=== PATIENT | male | born 1995 | race Caucasian/White ===

== ENCOUNTER 2017-08-15 03:02 | Inpatient (IN) | payer BC, SELFPAY ==
[2017-08-15] VITALS (31 sets, daily range): BP systolic 107–170; BP diastolic 41–88; PULSE 59–98; RESP 13–24; TEMP 36.4–37.1; O2SAT 95–100; BMI 35.7; BMI 35.0; BMI 35.1
--- NOTE | 2017-08-15 03:35 | EKG12_ITS ---
Test Reason : ABN LAB Blood Pressure : / mmHG Vent. Rate : 083 BPM Atrial Rate : 083 BPM P-R Int : 160 ms QRS Dur : 094 ms QT Int : 522 ms P-R-T Axes : 029 049 020 degrees QTc Int : 613 ms Normal sinus rhythm Nonspecific T wave abnormality Abnormal ECG Confirmed by TRUDI RYDER ([id number]), commercial production editor ELLIOTT HOGUE ([id number] on 08/17/2017 2:35:48 PM Referred By: NANCY Confirmed By:TRUDI RYDER
--- NOTE | 2017-08-15 03:36 | ED.VISSUMM ---
- ER Visit Summary Date of Service: 08/15/17 Chief Complaint: Low potassium History of Present Illness: The patient is a 21 M with history of hypokalemic periodic paralysis who presents complaining of low potassium. Patient states since yesterday morning he has been having symptoms develop, beginning with leg stiffness upon waking and then worsening development of weakness during the day. He fell asleep and when he woke up he could hardly move. He came to the emergency department for evaluation. He states this is happened multiple times and is consistent with his periodic paralysis episodes. He denies chest pain, palpitations, shortness of breath, abdominal pain, nausea or vomiting, fever or any other complaints. He is on as needed potassium supplements but has not been taking them for a long time. He denies any alcohol or drug use. Denies any other medical problems. Family history of hypokalemic periodic paralysis. Physical Examination: Vital signs: afebrile, hemodynamically stable, no hypoxia on room air General: well nourished, well developed, in no distress Skin: warm, dry, no rash, no pallor HEENT: normocephalic and atraumatic; PERRL, EOMI, moist mucous membranes Cardiovascular: regular rate and rhythm without murmurs, no peripheral edema, 2+ pulses all distal extremities Respiratory: No increased work of breathing, lungs are clear to auscultation bilaterally, no rales, rhonchi or wheezing Abdominal: Abdomen is soft, nontender with normoactive bowel sounds, no guarding or rebound, no masses MSK: Diffuse weakness in all extremities, 1/5 strength Neuro: Awake and alert, oriented ?4. No facial droop, sensation and intact and symmetric Test Results: Abnormal Lab Results 08/15/17 08/15/17 03:14 03:14 WBC 9.8 RBC 4.98 Hgb 15.1 Hct 41.6 MCV 83.5 MCH 30.3 MCHC 36.3 H RDW 12.1 RDW Differential 36.1 Plt Count 223 MPV 10.0 Immature Gran % (Auto) 0.200 Neut % (Auto) 65.7 Lymph % (Auto) 21.6 [place] % (Auto) 8.9 Eos % (Auto) 3.5 Baso % (Auto) 0.1 Absolute Neuts (auto) 6.4 Absolute Lymphs (auto) 2.11 Total Counted Not Reportable Sodium 140 Potassium 1.7 L* Chloride 104 Carbon Dioxide 28.0 Anion Gap 8 BUN 14 Creatinine 1.09 Estim Creat Clear Calc 119.64 Est GFR (MDRD) Af Amer 111 Est GFR (MDRD) Non-Af 92 BUN/Creatinine Ratio 12.8 Glucose 106 Calcium 8.4 L Phosphorus 3.5 Magnesium 1.8 Emergency Department Course and Treatment: CBC and BMP including mag and phosphorus levels were performed. EKG showed a sinus rhythm with diffuse T-wave flattening, U wave present, and a prolonged QTc interval of 613. No ST changes. Patient's labs were remarkable for potassium of 1.7. Patient was given an oral dose of potassium, and 10 mEq/h IV was ordered. Patient will require close monitoring of his potassium levels, including for rebound hyperkalemia, as his treatment progresses. Patient was kept on the monitoring and evaluation advisor for monitoring of possible dysrhythmias. Patient will be admitted to ICU for further management of his severe hypokalemia and muscle weakness, presumed secondary to his known hypokalemic periodic paralysis. Treatment Plan: [] Disposition: [] Impression: Severe hypokalemia, hypokalemic periodic paralysis This note was generated with [employer] dictation software. It may contain incorrect words, spelling, and punctuation that were not noted in review of the chart prior to signing ED Disposition - Plan for ED Patient: Chief Complaint: Abn Labs
[2017-08-15 03:54] LABS: Absolute Lymphocyte Count 2.11 X10^3/ul (0.83-4.51); Absolute Neutrophil Count 6.4 X10^3/uL (2.0-7.7); Basophil# 0.01 X10^3/uL; Basophil% 0.1 % (0-1); Eosinophil# 0.34 X10^3/uL; Eosinophils% 3.5 % (0-5); Hematocrit 41.6 % (40-54); Hemoglobin 15.1 g/dl (13.0-16.5); Lymphocyte # 2.11 X10^3/ul (4.0); Lymphocyte % 21.6 % (19-41); Mean Corp Hgb Conc 36.3 g/gl (32-36); Mean Corpuscular Hgb 30.3 pg (27.0-32.0); Mean Corpuscular Volume 83.5 fL (80-94); Monocyte# 0.87 X10^3/uL; Monocyte% 8.9 % (0-10); Neutrophil # 6.43 X10^3/uL (2.7-7.7); Neutrophil % 65.7 % (47-70); Platelet Count 223 K/mm3 (150-450); RBC Distribution Width CV 12.1 % (11.6-14.6); RBC Distribution Width SD 36.1 fl (35.1-43.9); Red Blood Count 4.98 M/mm3 (4.6-6.2); White Blood Count 9.8 K/mm3 (4.4-11.0)
[2017-08-15 03:57] LABS: POSITIVE COUNT NO; POSITIVE DIFFERENTIAL NO; POSITIVE MORPHOLOGY NO
[2017-08-15 05:02] LABS: Anion Gap 8 (5-15); BUN 14 mg/dL (7-18); BUN/Creat Ratio 12.8 RATIO (10-20); Calcium,Total 8.4 mg/dL (8.5-10.1); Chloride 104 mmol/L (98-107); Creatinine, Serum 1.09 mg/dL (0.70-1.30); EST Glomerular Filtration Rate 92 mL/min (>60); Est Glom Filt Rate - Afr Amer 111 mL/min (>60); Estimated Creatinine Clearance 119.64 ml/min; Glucose 106 mg/dL (74-106); Magnesium 1.8 mg/dL (1.6-2.6); Phosphorus 3.5 mg/dL (2.5-4.9); Potassium 1.7 mmol/L (3.5-5.1); Sodium Level 140 mmol/L (136-145)
--- NOTE | 2017-08-15 05:02 | ED.RN ---
LAB CALLED TO REPORT K+ 1.7, MADE AWARE.
--- NOTE | 2017-08-15 06:05 | PCM.HP.STD ---
Problem List (1) Hypokalemic periodic paralysis Status: Acute History of Present Illness Date of Admission: 08/15/17 Chief Complaint: leg stiffness difficulty moving The patient is a 21 year old male patient with a significant past medical history of hypokalemic periodic paralysis presents to the ER with inability to move normally. He states he noticed feeling his legs getting stiff yesterday morning and this has progressed through now. It has been a year since his last potassium attack. He has not been taking his potassium supplements. No fevers or chills, no chest apin or shortness of breath. He received 40meq KCl PO and IV in the ER. He will be admitted to ICU while he has symptoms of movement disorder. His potassium level is currently 1.7. Past Medical History Allergies No Known Allergies Allergy (Verified 08/15/17 03:08) Home Medications: Ambulatory Orders Medication Instructions Recorded Potassium Chloride [K-Dur] 10 meq PO PRN PRN 03/09/15 Smoking Status: Never smoker - *Family History Maternal History Items: No pertinent history Review of Systems Constitutional: Reports: Malaise, Weakness, Fatigue. Denies: Chills, Fever, Weight Change HEENT: Denies: Head Aches, Sinus Congestion, Sinus Drainage Cardiovascular: Denies: Chest Pain, Palpitations Respiratory: Denies: Cough, Shortness of breath at rest, Sputum production Gastrointestinal: Denies: Abdominal Pain, Nausea, Vomiting Genitourinary: Denies: Dysuria Musculoskeletal: Denies: Joint Pain, Joint Tenderness Skin: Denies: Rash, Wounds Neurological: Reports: Incoordination, Numbness. Denies: Focal weakness, Tingling Psychiatric: Denies: Anxiety, Depression, Homicidal Ideations, Suicidal Ideations Hematologic/ Lymphatic: Denies: Easy Bruising, Easy Bleeding VTE Information - Inpt Only VTE Present on Admission: No VTE Mechan Device Prophylaxis: None VTE Pharm Prophylaxis ordered?: Yes Patient Problems: Active and Suspected Problems Hypokalemic periodic paralysis (Acute) - Physical Exam General: Alert, Oriented x3, Cooperative HEENT: Atraumatic, Normocephalic Neck: Supple Lungs: Clear to auscultation, Normal air movement, No rhonchi, No wheeze, No rales Cardiovascular: Regular rate, Regular Rhythm, Normal S1, Normal S2, No murmurs Abdomen: Bowel Sounds Present, Soft, Non Tender, Obese Extremities: No edema Skin: No rashes Musculoskeletal: No Tenderness to Palpation of Joints or Extremities Neurological: Neuro grossly intact, - - having some muscle spasms and decrease dexterity and fine motor movement of all distal extremities strength currently 3/5 in all four extremities he can lift his head up off the pillow Psych/Mental Status: Normal Affect, Appropriate Vital Signs Temp Pulse Resp BP Pulse Ox 98.7 F 98 20 H 142/64 H 96 08/15/17 03:10 08/15/17 05:55 08/15/17 05:55 08/15/17 05:55 08/15/17 05:55 Oxygen Delivery Method Room Air Weight: 263 lb 7.238 oz Body Mass Index (BMI) 35.7 Laboratory Tests Past 24 Hrs 08/15/17 08/15/17 08/15/17 03:14 03:14 03:14 WBC 9.8 RBC 4.98 Hgb 15.1 Hct 41.6 MCV 83.5 MCH 30.3 MCHC 36.3 H RDW 12.1 RDW Differential 36.1 Plt Count 223 MPV 10.0 Immature Gran % (Auto) 0.200 Neut % (Auto) 65.7 Lymph % (Auto) 21.6 [place] % (Auto) 8.9 Eos % (Auto) 3.5 Baso % (Auto) 0.1 Absolute Neuts (auto) 6.4 Absolute Lymphs (auto) 2.11 Total Counted Not Reportable Sodium 140 Potassium 1.7 L* Chloride 104 Carbon Dioxide 28.0 Anion Gap 8 BUN 14 Creatinine 1.09 Estim Creat Clear Calc 119.64 Est GFR (MDRD) Af Amer 111 Est GFR (MDRD) Non-Af 92 BUN/Creatinine Ratio 12.8 Glucose 106 Calcium 8.4 L Phosphorus 3.5 Magnesium 1.8 TSH Pending Assessment/Plan Active and Suspected Problems Hypokalemic periodic paralysis (Acute) Plan - admit to ICU - consult Dr. Garcia for ICU management - start pt on d51/2 normal saline with 20meq KCl at 125 cc/ hour and order another 40meq KCL via IV piggyback - repeat BMP once the second IV 40meq KCL is infused - neurovascular assessments q 4hrs - LMWH for DVT prophylaxis Code Visit Inpatient E&M: 07440 Init Hosp L3
[2017-08-15 06:15] LABS: Thyroid Stim Hormone (TSH) 3.56 uIU/mL (0.358-3.74)
--- NOTE | 2017-08-15 08:13 | PCM.PN.HOSP ---
Patient Problems: Active and Suspected Problems Hypokalemic periodic paralysis (Acute) Subjective: Still weak. Has not seen a doctor in over a year and stated that he is potassium by 2 weeks ago. Patient states that he will take his potassium once or twice per week when he knows that he would get weak. Has not had any lab work in over a year as well. Vitals/I&O's: Vital Signs Temp Pulse Resp BP Pulse Ox 36.9 C 71 24 H 136/70 H 100 08/15/17 07:00 08/15/17 07:59 08/15/17 07:00 08/15/17 07:00 08/15/17 07:00 Oxygen Delivery Method Room Air Weight: 117.4 kg Body Mass Index (BMI) 35.0 General: Alert, Cooperative, No apparent distress HEENT: Atraumatic, Normocephalic Cardiovascular: Regular rate, Regular Rhythm, Normal S1, Normal S2, No murmurs Abdomen: Bowel Sounds Present, Soft, Non Tender, Non-Distended, No Hepato-splenomegaly Extremities: No edema, No Calf Tenderness Psych/Mental Status: Normal Affect, Appropriate Laboratory Results 08/15/17 07:00: MRSA (PCR) Pending Current Medications Enoxaparin Sodium (Lovenox) 40 mg SC DAILY@1000 SHANITA Potassium Chloride 40 meq/ (Sodium Chloride) 520 mls @ 130 mls/hr IV .Q4H SHANITA Stop: 08/15/17 09:14 Last Admin: 08/15/17 05:37 Dose: 130 mls/hr Sodium Chloride () 250 mls @ 15 mls/hr IV .[id number] PRN PRN Reason: SALINE FLUSH Magnesium Hydroxide (Milk Of Magnesia) 30 ml PO DAILY PRN PRN PRN Reason: Constipation Potassium Chloride (K-Dur) 40 meq PO DAILYCM SHANITA Sodium Chloride () 5 - 30 ml IV UD PRN PRN Reason: SALINE FLUSH Medical Necessity - Tobacco Use Smoking Status: Never smoker Assessment/Plan Active and Suspected Problems Hypokalemic periodic paralysis (Acute) 1. Hypokalemia: History of hypokalemic periodic paralysis Patient's potassium was 1.7 Continue with potassium replacement Patient has been rather lax in regards to follow with primary care doctors and having lab work. Patient's symptoms are similar to when he has had weakness due to profound hypokalemia in the past which was about a year ago. TSH was normal at 3.56 Reevaluate patient's potassium level is potassium infusion and patient's response. Patient is feeling better than likely can be discharged home. Patient will need to demonstrate more appropriate follow-up in regards to helping prevent recurrent attacks. May consider initiation of acetazolamide 150 twice daily or Spironolactone 100 mg daily. Code Visit Procedures: Other Procedure - See Report - non billable rounding.
--- NOTE | 2017-08-15 08:20 | PN_ITS ---
Patient Problems: Active and Suspected Problems Hypokalemic periodic paralysis (Acute) Subjective: Still weak. Has not seen a doctor in over a year and stated that he is potassium by 2 weeks ago. Patient states that he will take his potassium once or twice per week when he knows that he would get weak. Has not had any lab work in over a year as well. Vitals/I&O's: Vital Signs Temp Pulse Resp BP Pulse Ox 36.9 C 71 24 H 136/70 H 100 08/15/17 07:00 08/15/17 07:59 08/15/17 07:00 08/15/17 07:00 08/15/17 07:00 Oxygen Delivery Method Room Air Weight: 117.4 kg Body Mass Index (BMI) 35.0 General: Alert, Cooperative, No apparent distress HEENT: Atraumatic, Normocephalic Cardiovascular: Regular rate, Regular Rhythm, Normal S1, Normal S2, No murmurs Abdomen: Bowel Sounds Present, Soft, Non Tender, Non-Distended, No Hepato- splenomegaly Extremities: No edema, No Calf Tenderness Psych/Mental Status: Normal Affect, Appropriate Laboratory Results 08/15/17 07:00: MRSA (PCR) Pending Current Medications Enoxaparin Sodium (Lovenox) 40 mg SC DAILY@1000 SHANITA Potassium Chloride 40 meq/ (Sodium Chloride) 520 mls @ 130 mls/hr IV .Q4H SHANITA Stop: 08/15/17 09:14 Last Admin: 08/15/17 05:37 Dose: 130 mls/hr Sodium Chloride () 250 mls @ 15 mls/hr IV .[id number] PRN PRN Reason: SALINE FLUSH Magnesium Hydroxide (Milk Of Magnesia) 30 ml PO DAILY PRN PRN PRN Reason: Constipation Potassium Chloride (K-Dur) 40 meq PO DAILYCM SHANITA Sodium Chloride () 5 - 30 ml IV UD PRN PRN Reason: SALINE FLUSH Medical Necessity - Tobacco Use Smoking Status: Never smoker Assessment/Plan Active and Suspected Problems Hypokalemic periodic paralysis (Acute) 1. Hypokalemia: * History of hypokalemic periodic paralysis * Patient's potassium was 1.7 * Continue with potassium replacement * Patient has been rather lax in regards to follow with primary care doctors and having lab work. * Patient's symptoms are similar to when he has had weakness due to profound hypokalemia in the past which was about a year ago. * TSH was normal at 3.56 * Reevaluate patient's potassium level is potassium infusion and patient's response. Patient is feeling better than likely can be discharged home. * Patient will need to demonstrate more appropriate follow-up in regards to helping prevent recurrent attacks. * May consider initiation of acetazolamide 150 twice daily or Spironolactone 100 mg daily. Code Visit Procedures: Other Procedure - See Report - non billable rounding.
--- NOTE | 2017-08-15 08:27 | PCM.CON.CC ---
Problem List (1) Hypokalemic periodic paralysis Status: Acute Reason for Consult Date of Consultation: 08/15/17 Reason for Consultation: Hypokalemia History of Present Illness: The patient is a 21 year old M, with past medical history listed below, who presented to [facility] 2 day history of progressive weakness. Patient reportedly had noted some stiffness in his legs yesterday morning and then woke this morning with significant weakness. Patient does report multiple previous similar type of events and states that his brother and father also have similar events. Patient is reportedly supposed to be on potassium supplementation, but has not been using them. Patient does report that he had pizza couple days ago, which may have started this. Patient states that he deals with muscle weakness and soreness on a daily basis. Patient does not typically follow with any physicians. Patient does not take any medications at baseline, but is supposed to be taking potassium supplementation. Patient denies any recent URI, fever, chills, nausea, vomiting, dysphagia or aspiration events. Patient denies any trauma associated with the weakness. Patient denies any dysuria. Review of systems otherwise negative ?10 systems. Past Medical History Allergies No Known Allergies Allergy (Verified 08/15/17 03:08) Home Medications: Ambulatory Orders Medication Instructions Recorded Potassium Chloride [K-Dur] 10 meq PO PRN PRN 03/09/15 Smoking Status: Never smoker - *Family History Maternal History Items: No pertinent history Review of Systems Comment: See HPI Patient Problems: Active and Suspected Problems Hypokalemic periodic paralysis (Acute) Objective: No imaging has been completed. - Physical Exam General: Alert, Oriented x3, Cooperative, No apparent distress, - - Speaking in full sentences. HEENT: Atraumatic, PERRLA, EOMI, Normocephalic, - - No facial droop appreciated. No scleral icterus or injection noted. Oral: Moist Mucosa, No Gingival or Mucosal Lesions/ Ulcerations Neck: Supple, No JVD, No Nodes, Trachea Midline Lungs: Clear to auscultation, No rhonchi, No wheeze, No rales Cardiovascular: Regular rate, Regular Rhythm, Normal S1, Normal S2, No murmurs, No rub noted, No Gallop Abdomen: Bowel Sounds Present, Soft, Non Tender, Non-Distended Extremities: No clubbing, No cyanosis, No edema, Capillary Refill Less than 3 Seconds Skin: No rashes, No breakdown Musculoskeletal: No Tenderness to Palpation of Joints or Extremities Lymphatic: No Cervical, Supraclavicular, or Inguinal Adenopathy Neurological: Cranial nerves II-XII grossly intact, - - Significant proximal muscle weakness. Right upper extremity strength 2 out of 5 at the elbow. 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 0 out of 5 lower extremity strength. Sensation intact. Psych/Mental Status: Alert and oriented to time, place, person, mood and affect Vital Signs Temp Pulse Resp BP Pulse Ox 36.9 C 71 24 H 136/70 H 100 08/15/17 07:00 08/15/17 07:59 08/15/17 07:00 08/15/17 07:00 08/15/17 07:00 Oxygen Delivery Method Room Air Weight: 117.4 kg Body Mass Index (BMI) 35.0 Laboratory Tests Past 24 Hrs 08/15/17 07:00 MRSA (PCR) Pending Laboratory Tests 08/15/17 08/15/17 08/15/17 03:14 03:14 03:14 WBC 9.8 RBC 4.98 Hgb 15.1 Hct 41.6 MCV 83.5 MCH 30.3 MCHC 36.3 H RDW 12.1 RDW Differential 36.1 Plt Count 223 MPV 10.0 Immature Gran % (Auto) 0.200 Neut % (Auto) 65.7 Lymph % (Auto) 21.6 [place] % (Auto) 8.9 Eos % (Auto) 3.5 Baso % (Auto) 0.1 Absolute Neuts (auto) 6.4 Absolute Lymphs (auto) 2.11 Total Counted Not Reportable Sodium 140 Potassium 1.7 L* Chloride 104 Carbon Dioxide 28.0 Anion Gap 8 BUN 14 Creatinine 1.09 Estim Creat Clear Calc 119.64 Est GFR (MDRD) Af Amer 111 Est GFR (MDRD) Non-Af 92 BUN/Creatinine Ratio 12.8 Glucose 106 Calcium 8.4 L Phosphorus 3.5 Magnesium 1.8 TSH 3.56 Assessment/Plan Active and Suspected Problems Hypokalemic periodic paralysis (Acute) RECOMMENDATIONS: 1. Aggressive potassium repletion 2. Continuous cardiac monitoring 3. Okay to eat with assistance 4. Repeat potassium level after K riders 5. Consider PT/OT eval IMPRESSIONS: 1. Hypokalemic periodic paralysis Clinical impression is that patient typically has marginal control at baseline. Patient does not follow with an outpatient physician and is noncompliant with supplemental potassium. We will continue with aggressive potassium supplementation. Per review of the literature, involvement of the respiratory musculature and heart is rare. We will continue to monitor for potential arrhythmic complications. Consider PT OT eval. Patient likely can have a p.o. diet with assistance. Patient does satisfy clinical criteria for this diagnosis per reading in [place] (https://www.ncbi.nlm.nih.gov/books/DPE4453/) Code Visit Inpatient E&M: 92318 Init Hosp L3
--- NOTE | 2017-08-15 08:39 | CON.PCM_ITS ---
Problem List (1) Hypokalemic periodic paralysis Status: Acute Reason for Consult Date of Consultation: 08/15/17 Reason for Consultation: Hypokalemia History of Present Illness: The patient is a 21 year old M, with past medical history listed below, who presented to [facility] 2 day history of progressive weakness. Patient reportedly had noted some stiffness in his legs yesterday morning and then woke this morning with significant weakness. Patient does report multiple previous similar type of events and states that his brother and father also have similar events. Patient is reportedly supposed to be on potassium supplementation, but has not been using them. Patient does report that he had pizza couple days ago, which may have started this. Patient states that he deals with muscle weakness and soreness on a daily basis. Patient does not typically follow with any physicians. Patient does not take any medications at baseline, but is supposed to be taking potassium supplementation. Patient denies any recent URI, fever, chills, nausea, vomiting , dysphagia or aspiration events. Patient denies any trauma associated with the weakness. Patient denies any dysuria. Review of systems otherwise negative ?10 systems. Past Medical History Allergies No Known Allergies Allergy (Verified 08/15/17 03:08) Home Medications: Ambulatory Orders Medication Instructions Recorded Potassium Chloride [K-Dur] 10 meq PO PRN PRN 03/09/15 Smoking Status: Never smoker - *Family History Maternal History Items: No pertinent history Review of Systems Comment: See HPI Patient Problems: Active and Suspected Problems Hypokalemic periodic paralysis (Acute) Objective: No imaging has been completed. - Physical Exam General: Alert, Oriented x3, Cooperative, No apparent distress, - - Speaking in full sentences. HEENT: Atraumatic, PERRLA, EOMI, Normocephalic, - - No facial droop appreciated. No scleral icterus or injection noted. Oral: Moist Mucosa, No Gingival or Mucosal Lesions/ Ulcerations Neck: Supple, No JVD, No Nodes, Trachea Midline Lungs: Clear to auscultation, No rhonchi, No wheeze, No rales Cardiovascular: Regular rate, Regular Rhythm, Normal S1, Normal S2, No murmurs, No rub noted, No Gallop Abdomen: Bowel Sounds Present, Soft, Non Tender, Non-Distended Extremities: No clubbing, No cyanosis, No edema, Capillary Refill Less than 3 Seconds Skin: No rashes, No breakdown Musculoskeletal: No Tenderness to Palpation of Joints or Extremities Lymphatic: No Cervical, Supraclavicular, or Inguinal Adenopathy Neurological: Cranial nerves II-XII grossly intact, - - Significant proximal muscle weakness. Right upper extremity strength 2 out of 5 at the elbow. 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 0 out of 5 lower extremity strength. Sensation intact. Psych/Mental Status: Alert and oriented to time, place, person, mood and affect Vital Signs Temp Pulse Resp BP Pulse Ox 36.9 C 71 24 H 136/70 H 100 08/15/17 07:00 08/15/17 07:59 08/15/17 07:00 08/15/17 07:00 08/15/17 07:00 Oxygen Delivery Method Room Air Weight: 117.4 kg Body Mass Index (BMI) 35.0 Laboratory Tests Past 24 Hrs 08/15/17 07:00 MRSA (PCR) Pending Laboratory Tests 08/15/17 08/15/17 08/15/17 03:14 03:14 03:14 WBC 9.8 RBC 4.98 Hgb 15.1 Hct 41.6 MCV 83.5 MCH 30.3 MCHC 36.3 H RDW 12.1 RDW Differential 36.1 Plt Count 223 MPV 10.0 Immature Gran % (Auto) 0.200 Neut % (Auto) 65.7 Lymph % (Auto) 21.6 [place] % (Auto) 8.9 Eos % (Auto) 3.5 Baso % (Auto) 0.1 Absolute Neuts (auto) 6.4 Absolute Lymphs (auto) 2.11 Total Counted Not Reportable Sodium 140 Potassium 1.7 L* Chloride 104 Carbon Dioxide 28.0 Anion Gap 8 BUN 14 Creatinine 1.09 Estim Creat Clear Calc 119.64 Est GFR (MDRD) Af Amer 111 Est GFR (MDRD) Non-Af 92 BUN/Creatinine Ratio 12.8 Glucose 106 Calcium 8.4 L Phosphorus 3.5 Magnesium 1.8 TSH 3.56 Assessment/Plan Active and Suspected Problems Hypokalemic periodic paralysis (Acute) RECOMMENDATIONS: 1. Aggressive potassium repletion 2. Continuous cardiac monitoring 3. Okay to eat with assistance 4. Repeat potassium level after K riders 5. Consider PT/OT eval IMPRESSIONS: 1. Hypokalemic periodic paralysis Clinical impression is that patient typically has marginal control at baseline. Patient does not follow with an outpatient physician and is noncompliant with supplemental potassium. We will continue with aggressive potassium supplementation. Per review of the literature, involvement of the respiratory musculature and heart is rare. We will continue to monitor for potential arrhythmic complications. Consider PT OT eval. Patient likely can have a p.o. diet with assistance. Patient does satisfy clinical criteria for this diagnosis per reading in [place] (https://www.ncbi.nlm.nih.gov/books/ SIZ0394/) Code Visit Inpatient E&M: 50149 Init Hosp L3
[2017-08-15 10:20] LABS: M R Staph aureus DNA By PCR Negative (Negative); Probe Check PASS; Specimen Processing Control PASS
[2017-08-15] MEDS: Enoxaparin 40 MG/0.4 ML Syringe SC (10:56)
[2017-08-15] MEDS: AcetaZOLAMIDE 250 MG Tablet PO ×2 (10:56→17:18)
[2017-08-15 11:38] LABS: Anion Gap 12 (5-15); BUN 13 mg/dL (7-18); BUN/Creat Ratio 13.9 RATIO (10-20); Calcium,Total 8.2 mg/dL (8.5-10.1); Chloride 107 mmol/L (98-107); Creatinine, Serum 0.93 mg/dL (0.70-1.30); EST Glomerular Filtration Rate 110 mL/min (>60); Est Glom Filt Rate - Afr Amer 133 mL/min (>60); Estimated Creatinine Clearance 140.23 ml/min; Glucose 104 mg/dL (74-106); Potassium 1.9 mmol/L (3.5-5.1); Sodium Level 143 mmol/L (136-145)
--- NOTE | 2017-08-15 13:14 | CASEMGMT ---
RN CM Note. Intro role of CM to patient in ICU. Pt presented to ER with periodic paralysis and inability to move normally. Potassium 1.7 on admission. -Pt states he lives with brothers and friends. Independent prior to admission, no DME, drove. Now states significant weakness. -PT/OT evaluation: per PT/OT pt is assist of 3 to sit up with max cues for posture and spatial awareness. Pt progressively fatigued. [facility]: [facility] PCP: VELVET Caicedo DC PLAN: Home on discharge if weakness resolved. Will continue to follow PT/OT and assist with any dc planning needs. If outpt therapy is recommended, will need prescription prior to dc. Veronica OVALLES RN ACM
[2017-08-15 21:48] LABS: Potassium 1.9 mmol/L (3.5-5.1)
[2017-08-16] VITALS (15 sets, daily range): BP systolic 118–151; BP diastolic 33–103; PULSE 78–120; RESP 13–24; TEMP 36.6–36.8; O2SAT 97–100
[2017-08-16] MEDS: Acetaminophen 325 MG Tablet 650 MG PO ×2 (00:52→14:17)
[2017-08-16] MEDS: AcetaZOLAMIDE 250 MG Tablet PO ×2 (07:33→17:09)
[2017-08-16 08:02] LABS: Anion Gap 9 (5-15); BUN 14 mg/dL (7-18); BUN/Creat Ratio 15.4 RATIO (10-20); Calcium,Total 7.7 mg/dL (8.5-10.1); Chloride 112 mmol/L (98-107); Creatinine, Serum 0.91 mg/dL (0.70-1.30); EST Glomerular Filtration Rate 113 mL/min (>60); Est Glom Filt Rate - Afr Amer 137 mL/min (>60); Estimated Creatinine Clearance 143.31 ml/min; Glucose 116 mg/dL (74-106); Potassium 3.1 mmol/L (3.5-5.1); Sodium Level 144 mmol/L (136-145)
--- NOTE | 2017-08-16 08:15 | EKG12_ITS ---
Test Reason : CP Blood Pressure : / mmHG Vent. Rate : 111 BPM Atrial Rate : 111 BPM P-R Int : 130 ms QRS Dur : 084 ms QT Int : 314 ms P-R-T Axes : 042 052 018 degrees QTc Int : 427 ms Sinus tachycardia Otherwise normal ECG Confirmed by MORAIMA CROSS, YEIMI ([id number]), video effects editor ELLIOTT HOGUE ([id number]) on 08/18/2017 1:50:01 PM Referred By: OLESYA Confirmed By:YEIMI VALERA MD
[2017-08-16] MEDS: Enoxaparin 40 MG/0.4 ML Syringe SC (09:06)
--- NOTE | 2017-08-16 09:13 | PCM.PN.HOSP ---
Patient Problems: Active and Suspected Problems Hypokalemic periodic paralysis (Acute) Subjective: Patient states that his arm weakness is better but the circulating of some facial paresthesias as well as some midsternal chest pressure and tightness. He said his eyes are blurry as well. Vitals/I&O's: Vital Signs Temp Pulse Resp BP Pulse Ox 36.7 C 120 H 22 H 131/33 H 100 08/16/17 04:00 08/16/17 08:00 08/16/17 08:00 08/16/17 08:00 08/16/17 08:00 Oxygen Delivery Method Room Air Weight: 118.9 kg Body Mass Index (BMI) 35.0 Intake and Output for Last 24 Hours 08/14/17 08/15/17 08/16/17 23:59 23:59 23:59 Intake Total 2162 / 2162 1005 / 1005 Output Total 1275 / 1275 950 / 950 Balance 887 / 887 55 / 55 General: Alert, Cooperative, No apparent distress, Well developed HEENT: Atraumatic, Normocephalic, - - Lateral lateral nystagmus Oral: Moist Mucosa Neck: No Nodes, Thyroid Normal Size and Texture Lungs: Clear to auscultation, Normal air movement, No rhonchi, No wheeze Cardiovascular: Regular rate, Regular Rhythm, Normal S1, Normal S2 Abdomen: Bowel Sounds Present, Soft, Non Tender, Non-Distended, No Hepato-splenomegaly Extremities: No edema, No Calf Tenderness Skin: No rashes, No breakdown Psych/Mental Status: Normal Affect, Appropriate Laboratory Results 08/15/17 07:00: MRSA (PCR) Negative 08/15/17 11:10: Sodium 143, Potassium 1.9 L*, Chloride 107, Carbon Dioxide 24.0, Anion Gap 12, BUN 13, Creatinine 0.93, Estim Creat Clear Calc 140.23, Est GFR (MDRD) Af Amer 133, Est GFR (MDRD) Non-Af 110, BUN/Creatinine Ratio 13.9, Glucose 104, Calcium 8.2 L 08/15/17 21:25: Potassium 1.9 L* 08/16/17 07:45: Sodium 144, Potassium 3.1 L, Chloride 112 H, Carbon Dioxide 23.0, Anion Gap 9, BUN 14, Creatinine 0.91, Estim Creat Clear Calc 143.31, Est GFR (MDRD) Af Amer 137, Est GFR (MDRD) Non-Af 113, BUN/Creatinine Ratio 15.4, Glucose 116 H, Calcium 7.7 L 08/16/17 07:45: Magnesium 2.0 Current Medications Acetaminophen (Tylenol) 650 mg PO Q6H PRN PRN PRN Reason: pain Last Admin: 08/16/17 00:52 Dose: 650 mg Acetazolamide (Diamox) 250 mg PO BIDCM [facility] Last Admin: 08/16/17 07:33 Dose: 250 mg Enoxaparin Sodium (Lovenox) 40 mg SC DAILY@1000 SHANITA Last Admin: 08/16/17 09:06 Dose: 40 mg Sodium Chloride () 250 mls @ 15 mls/hr IV .[id number] PRN PRN Reason: SALINE FLUSH Potassium Chloride 40 meq/ (Sodium Chloride) 520 mls @ 130 mls/hr IV X1 ONE Stop: 08/16/17 13:29 Magnesium Hydroxide (Milk Of Magnesia) 30 ml PO DAILY PRN PRN PRN Reason: Constipation Potassium Chloride (K-Dur) 40 meq PO TIDCM [facility] Last Admin: 08/16/17 07:33 Dose: 40 meq Sodium Chloride () 5 - 30 ml IV UD PRN PRN Reason: SALINE FLUSH Medical Necessity - Tobacco Use Smoking Status: Never smoker Assessment/Plan Active and Suspected Problems Hypokalemic periodic paralysis (Acute) 1. Hypokalemia: imProving history of hypokalemic periodic paralysis Patient's potassium was 1.7 Continue with potassium replacement Patient has been rather lax in regards to follow with primary care doctors and having lab work. Patient's symptoms are similar to when he has had weakness due to profound hypokalemia in the past which was about a year ago. TSH was normal at 3.56 Reevaluate patient's potassium level is potassium infusion and patient's response. Patient is feeling better than likely can be discharged home. Patient will need to demonstrate more appropriate follow-up in regards to helping prevent recurrent attacks. May consider initiation of acetazolamide 150 twice daily or Spironolactone 100 mg daily. Continue with potassium replacements 2. hypocalcemia With patient's paresthesias in his feet suspect that this is what is causing his symptoms. Patient's calcium is down to 7.7. Magnesium is normal at 2. We will treat patient with calcium gluconate and reassess his lab work later on today. Patient to be did be escalated to a MedSurg status. Code Visit Inpatient E&M: 91137 Subs Hosp L2
--- NOTE | 2017-08-16 09:17 | PN_ITS ---
Patient Problems: Active and Suspected Problems Hypokalemic periodic paralysis (Acute) Subjective: Patient states that his arm weakness is better but the circulating of some facial paresthesias as well as some midsternal chest pressure and tightness. He said his eyes are blurry as well. Vitals/I&O's: Vital Signs Temp Pulse Resp BP Pulse Ox 36.7 C 120 H 22 H 131/33 H 100 08/16/17 04:00 08/16/17 08:00 08/16/17 08:00 08/16/17 08:00 08/16/17 08:00 Oxygen Delivery Method Room Air Weight: 118.9 kg Body Mass Index (BMI) 35.0 Intake and Output for Last 24 Hours 08/14/17 08/15/17 08/16/17 23:59 23:59 23:59 Intake Total 2162 / 2162 1005 / 1005 Output Total 1275 / 1275 950 / 950 Balance 887 / 887 55 / 55 General: Alert, Cooperative, No apparent distress, Well developed HEENT: Atraumatic, Normocephalic, - - Lateral lateral nystagmus Oral: Moist Mucosa Neck: No Nodes, Thyroid Normal Size and Texture Lungs: Clear to auscultation, Normal air movement, No rhonchi, No wheeze Cardiovascular: Regular rate, Regular Rhythm, Normal S1, Normal S2 Abdomen: Bowel Sounds Present, Soft, Non Tender, Non-Distended, No Hepato- splenomegaly Extremities: No edema, No Calf Tenderness Skin: No rashes, No breakdown Psych/Mental Status: Normal Affect, Appropriate Laboratory Results 08/15/17 07:00: MRSA (PCR) Negative 08/15/17 11:10: Sodium 143, Potassium 1.9 L*, Chloride 107, Carbon Dioxide 24.0 , Anion Gap 12, BUN 13, Creatinine 0.93, Estim Creat Clear Calc 140.23, Est GFR (MDRD) Af Amer 133, Est GFR (MDRD) Non-Af 110, BUN/Creatinine Ratio 13.9, Glucose 104, Calcium 8.2 L 08/15/17 21:25: Potassium 1.9 L* 08/16/17 07:45: Sodium 144, Potassium 3.1 L, Chloride 112 H, Carbon Dioxide 23.0 , Anion Gap 9, BUN 14, Creatinine 0.91, Estim Creat Clear Calc 143.31, Est GFR ( MDRD) Af Amer 137, Est GFR (MDRD) Non-Af 113, BUN/Creatinine Ratio 15.4, Glucose 116 H, Calcium 7.7 L 08/16/17 07:45: Magnesium 2.0 Current Medications Acetaminophen (Tylenol) 650 mg PO Q6H PRN PRN PRN Reason: pain Last Admin: 08/16/17 00:52 Dose: 650 mg Acetazolamide (Diamox) 250 mg PO BIDCM [facility] Last Admin: 08/16/17 07:33 Dose: 250 mg Enoxaparin Sodium (Lovenox) 40 mg SC DAILY@1000 [facility] Last Admin: 08/16/17 09:06 Dose: 40 mg Sodium Chloride () 250 mls @ 15 mls/hr IV .[id number] PRN PRN Reason: SALINE FLUSH Potassium Chloride 40 meq/ (Sodium Chloride) 520 mls @ 130 mls/hr IV X1 ONE Stop: 08/16/17 13:29 Magnesium Hydroxide (Milk Of Magnesia) 30 ml PO DAILY PRN PRN PRN Reason: Constipation Potassium Chloride (K-Dur) 40 meq PO TIDCM [facility] Last Admin: 08/16/17 07:33 Dose: 40 meq Sodium Chloride () 5 - 30 ml IV UD PRN PRN Reason: SALINE FLUSH Medical Necessity - Tobacco Use Smoking Status: Never smoker Assessment/Plan Active and Suspected Problems Hypokalemic periodic paralysis (Acute) 1. Hypokalemia: * imProving * history of hypokalemic periodic paralysis * Patient's potassium was 1.7 * Continue with potassium replacement * Patient has been rather lax in regards to follow with primary care doctors and having lab work. * Patient's symptoms are similar to when he has had weakness due to profound hypokalemia in the past which was about a year ago. * TSH was normal at 3.56 * Reevaluate patient's potassium level is potassium infusion and patient's response. Patient is feeling better than likely can be discharged home. * Patient will need to demonstrate more appropriate follow-up in regards to helping prevent recurrent attacks. * May consider initiation of acetazolamide 150 twice daily or Spironolactone 100 mg daily. * Continue with potassium replacements 2. hypocalcemia * With patient's paresthesias in his feet suspect that this is what is causing his symptoms. * Patient's calcium is down to 7.7. Magnesium is normal at 2. We will treat patient with calcium gluconate and reassess his lab work later on today. Patient to be did be escalated to a MedSurg status. Code Visit Inpatient E&M: 68908 Subs Hosp L2
--- NOTE | 2017-08-16 09:31 | PCM.PN.INT ---
Subjective: Patient received aggressive potassium supplementation overnight. This morning, patient reported ability to move his hands only, but has rapidly improved and is currently able to move all extremities. Patient has reported some subxiphoid discomfort, but this is reportedly improving with eating. General: Alert, Oriented x3, Cooperative, No apparent distress, Well developed, Well nourished, - - Speaks in full sentences. HEENT: Atraumatic, PERRLA, EOMI, Normocephalic, - - No scleral icterus or injection noted. Oral: Moist Mucosa, No Gingival or Mucosal Lesions/ Ulcerations Neck: Supple, No JVD, No Nodes, Trachea Midline Lungs: Clear to auscultation, Normal air movement, No rhonchi, No wheeze, No rales Cardiovascular: Regular rate, Regular Rhythm, Normal S1, Normal S2, No murmurs, No rub noted, No Gallop Abdomen: Bowel Sounds Present, Soft, Non Tender, Non-Distended, Obese Extremities: No clubbing, No cyanosis, No edema Skin: No rashes, No breakdown Musculoskeletal: No Tenderness to Palpation of Joints or Extremities Lymphatic: No Cervical, Supraclavicular, or Inguinal Adenopathy Neurological: Cranial nerves II-XII grossly intact, - - Muscle strength 4 out of 5 in all extremities. No fasciculations are appreciated. Slightly slow reflexes Psych/Mental Status: Alert and oriented to time, place, person, mood and affect Vital Signs Temp Pulse Resp BP Pulse Ox 36.8 C 104 H 16 125/50 H 98 08/16/17 09:28 08/16/17 09:28 08/16/17 09:28 08/16/17 09:28 08/16/17 09:28 Oxygen Delivery Method Room Air Weight: 118.9 kg Body Mass Index (BMI) 35.0 Intake and Output for Last 24 Hours 08/14/17 08/15/17 08/16/17 23:59 23:59 23:59 Intake Total 2162 / 2162 1005 / 1005 Output Total 1275 / 1275 950 / 950 Balance 887 / 887 55 / 55 Labs (Last 48 Hours) 08/15/17 08/15/17 08/15/17 07:00 11:10 21:25 Sodium 143 Potassium 1.9 L* 1.9 L* Chloride 107 Carbon Dioxide 24.0 Anion Gap 12 BUN 13 Creatinine 0.93 Estim Creat Clear Calc 140.23 Est GFR (MDRD) Af Amer 133 Est GFR (MDRD) Non-Af 110 BUN/Creatinine Ratio 13.9 Glucose 104 Calcium 8.2 L Magnesium MRSA (PCR) Negative 08/16/17 08/16/17 07:45 07:45 Sodium 144 Potassium 3.1 L Chloride 112 H Carbon Dioxide 23.0 Anion Gap 9 BUN 14 Creatinine 0.91 Estim Creat Clear Calc 143.31 Est GFR (MDRD) Af Amer 137 Est GFR (MDRD) Non-Af 113 BUN/Creatinine Ratio 15.4 Glucose 116 H Calcium 7.7 L Magnesium 2.0 MRSA (PCR) Medical Necessity - Tobacco Use Smoking Status: Never smoker Assessment/Plan Active and Suspected Problems Hypokalemic periodic paralysis (Acute) RECOMMENDATIONS: 1. Administer 1 more dose of IV potassium 2. Likely transition to p.o. potassium 20 mEq daily tomorrow 3. No further potassium checks today 4. Okay to leave the intensive care unit from my perspective 5. Continue PT/OT IMPRESSIONS: 1. Hypokalemic periodic paralysis Clinical impression is that patient typically has marginal control at baseline. Patient does not follow with an outpatient physician and is noncompliant with supplemental potassium. Patient is responded very well to therapy. We will continue to replete potassium, but no further checks will be required today. Stressed dietary modification to the patient, but he appears to be pre-contemplative. Okay to leave the intensive care unit from my perspective. Patient may benefit from daily potassium supplementation to avoid future attacks. Code Visit Inpatient E&M: [id number] Subs Hosp L2
--- NOTE | 2017-08-16 11:00 | NURSING ---
Patients mother at bedside requesting that potassium replacement be stopped. Dr Maravilla notified, came to bedside and discussed with the patient and his mother. Listened to patients concerns, voiced concerns that potassium level continues to be less than minimum usual goal of 3.5. Patient and family verbalized their understanding and continued with their request that potassium replacement be discontinued at this time. Dr Maravilla also discussed the importance of follow up after discharge and compliance with ongoing care plan after discharge. Patients mother stated that they did not want to drive to [place] or [place] for specialist visits and that none were available locally so they do not go.
[2017-08-16 14:05] LABS: Anion Gap 7 (5-15); BUN 14 mg/dL (7-18); BUN/Creat Ratio 13.7 RATIO (10-20); Calcium,Total 8.8 mg/dL (8.5-10.1); Chloride 111 mmol/L (98-107); Creatinine, Serum 1.02 mg/dL (0.70-1.30); EST Glomerular Filtration Rate 99 mL/min (>60); Est Glom Filt Rate - Afr Amer 120 mL/min (>60); Estimated Creatinine Clearance 127.85 ml/min; Glucose 72 mg/dL (74-106); Potassium 5.6 mmol/L (3.5-5.1); Sodium Level 143 mmol/L (136-145)
[2017-08-17 05:45] VITALS: BP 125/69; PULSE 75; RESP 16; TEMP 36.6; O2SAT 99
[2017-08-17 06:14] LABS: Anion Gap 8 (5-15); BUN 14 mg/dL (7-18); BUN/Creat Ratio 11.9 RATIO (10-20); Calcium,Total 9.1 mg/dL (8.5-10.1); Chloride 106 mmol/L (98-107); Creatinine, Serum 1.18 mg/dL (0.70-1.30); EST Glomerular Filtration Rate 84 mL/min (>60); Est Glom Filt Rate - Afr Amer 101 mL/min (>60); Estimated Creatinine Clearance 110.52 ml/min; Glucose 92 mg/dL (74-106); Magnesium 2.8 mg/dL (1.6-2.6); Potassium 4.6 mmol/L (3.5-5.1); Sodium Level 138 mmol/L (136-145)
[2017-08-17 10:00] VITALS: BP 127/72; PULSE 68; RESP 14; TEMP 36.7; O2SAT 100
--- NOTE | 2017-08-17 10:25 | PCM.PN.HOSP ---
Patient Problems: Active and Suspected Problems Hypokalemic periodic paralysis (Acute) Subjective: Strength back to normal. No further facial paresthesias. Patient has been urinating quite frequently. Vitals/I&O's: Vital Signs Temp Pulse Resp BP Pulse Ox 36.6 C 75 16 125/69 H 99 08/17/17 05:45 08/17/17 05:45 08/17/17 05:45 08/17/17 05:45 08/17/17 05:45 Oxygen Delivery Method Room Air Weight: 118.9 kg Body Mass Index (BMI) 35.0 Intake and Output for Last 24 Hours 08/15/17 08/16/17 08/17/17 23:59 23:59 23:59 Intake Total 2162 / 2162 4461 / 4461 1040 / 1040 Output Total 1275 / 1275 8800 / 8800 Balance 887 / 887 -4339 / -4339 1040 / 1040 General: Alert, No apparent distress HEENT: Atraumatic, Normocephalic Laboratory Results 08/16/17 13:40: Sodium 143, Potassium 5.6 H, Chloride 111 H, Carbon Dioxide 25.0, Anion Gap 7, BUN 14, Creatinine 1.02, Estim Creat Clear Calc 127.85, Est GFR (MDRD) Af Amer 120, Est GFR (MDRD) Non-Af 99, BUN/Creatinine Ratio 13.7, Glucose 72 L, Calcium 8.8 08/17/17 05:06: Sodium 138, Potassium 4.6, Chloride 106, Carbon Dioxide 24.0, Anion Gap 8, BUN 14, Creatinine 1.18, Estim Creat Clear Calc 110.52, Est GFR (MDRD) Af Amer 101, Est GFR (MDRD) Non-Af 84, BUN/Creatinine Ratio 11.9, Glucose 92, Calcium 9.1, Magnesium 2.8 H Current Medications Acetaminophen (Tylenol) 650 mg PO Q6H PRN PRN PRN Reason: pain Last Admin: 08/16/17 14:17 Dose: 650 mg Enoxaparin Sodium (Lovenox) 40 mg SC DAILY@1000 SHANITA Last Admin: 08/16/17 09:06 Dose: 40 mg Magnesium Hydroxide (Milk Of Magnesia) 30 ml PO DAILY PRN PRN PRN Reason: Constipation Sodium Chloride () 5 - 30 ml IV UD PRN PRN Reason: SALINE FLUSH Medical Necessity - Tobacco Use Smoking Status: Never smoker Assessment/Plan Active and Suspected Problems Hypokalemic periodic paralysis (Acute) 1. Hypokalemia: imProving. Today the patient's potassium is 4.6. history of hypokalemic periodic paralysis Patient's potassium was 1.7 Continue with potassium replacement Patient has been rather lax in regards to follow with primary care doctors and having lab work. Patient's symptoms are similar to when he has had weakness due to profound hypokalemia in the past which was about a year ago. TSH was normal at 3.56 Reevaluate patient's potassium level is potassium infusion and patient's response. Patient is feeling better than likely can be discharged home. Patient will need to demonstrate more appropriate follow-up in regards to helping prevent recurrent attacks. May consider initiation of acetazolamide 150 twice daily or Spironolactone 100 mg daily. Continue with potassium replacements Instructed the patient to have lab work as outpatient and to follow-up with his primary care provider on a routine basis. We will give the patient some information to follow-up with nephrology as well. Patient's mother, to whom I spoke with yesterday, made mention of a [facility] physician that specializes in patients disease. I explained the patient does need follow-up and I did try to bring of the point the patient has not followed up in about a year with anyone and has been managing without proper guidance. I did reinforce that the patient does need closer follow-up to help prevent repeat hospitalizations. Patient is medically stable for discharge today. Patient may return to work on the . 2. hypocalcemia With patient's paresthesias in his feet suspect that this is what is causing his symptoms. Patient's calcium is down to 7.7. Magnesium is normal at 2. We will treat patient with calcium gluconate and reassess his lab work later on today. Patient to be did be escalated to a MedSurg status.
--- NOTE | 2017-08-17 10:28 | PN_ITS ---
Patient Problems: Active and Suspected Problems Hypokalemic periodic paralysis (Acute) Subjective: Strength back to normal. No further facial paresthesias. Patient has been urinating quite frequently. Vitals/I&O's: Vital Signs Temp Pulse Resp BP Pulse Ox 36.6 C 75 16 125/69 H 99 08/17/17 05:45 08/17/17 05:45 08/17/17 05:45 08/17/17 05:45 08/17/17 05:45 Oxygen Delivery Method Room Air Weight: 118.9 kg Body Mass Index (BMI) 35.0 Intake and Output for Last 24 Hours 08/15/17 08/16/17 08/17/17 23:59 23:59 23:59 Intake Total 2162 / 2162 4461 / 4461 1040 / 1040 Output Total 1275 / 1275 8800 / 8800 Balance 887 / 887 -4339 / -4339 1040 / 1040 General: Alert, No apparent distress HEENT: Atraumatic, Normocephalic Laboratory Results 08/16/17 13:40: Sodium 143, Potassium 5.6 H, Chloride 111 H, Carbon Dioxide 25.0 , Anion Gap 7, BUN 14, Creatinine 1.02, Estim Creat Clear Calc 127.85, Est GFR ( MDRD) Af Amer 120, Est GFR (MDRD) Non-Af 99, BUN/Creatinine Ratio 13.7, Glucose 72 L, Calcium 8.8 08/17/17 05:06: Sodium 138, Potassium 4.6, Chloride 106, Carbon Dioxide 24.0, Anion Gap 8, BUN 14, Creatinine 1.18, Estim Creat Clear Calc 110.52, Est GFR ( MDRD) Af Amer 101, Est GFR (MDRD) Non-Af 84, BUN/Creatinine Ratio 11.9, Glucose 92, Calcium 9.1, Magnesium 2.8 H Current Medications Acetaminophen (Tylenol) 650 mg PO Q6H PRN PRN PRN Reason: pain Last Admin: 08/16/17 14:17 Dose: 650 mg Enoxaparin Sodium (Lovenox) 40 mg SC DAILY@1000 SHANITA Last Admin: 08/16/17 09:06 Dose: 40 mg Magnesium Hydroxide (Milk Of Magnesia) 30 ml PO DAILY PRN PRN PRN Reason: Constipation Sodium Chloride () 5 - 30 ml IV UD PRN PRN Reason: SALINE FLUSH Medical Necessity - Tobacco Use Smoking Status: Never smoker Assessment/Plan Active and Suspected Problems Hypokalemic periodic paralysis (Acute) 1. Hypokalemia: * imProving. Today the patient's potassium is 4.6. * history of hypokalemic periodic paralysis * Patient's potassium was 1.7 * Continue with potassium replacement * Patient has been rather lax in regards to follow with primary care doctors and having lab work. * Patient's symptoms are similar to when he has had weakness due to profound hypokalemia in the past which was about a year ago. * TSH was normal at 3.56 * Reevaluate patient's potassium level is potassium infusion and patient's response. Patient is feeling better than likely can be discharged home. * Patient will need to demonstrate more appropriate follow-up in regards to helping prevent recurrent attacks. * May consider initiation of acetazolamide 150 twice daily or Spironolactone 100 mg daily. * Continue with potassium replacements * Instructed the patient to have lab work as outpatient and to follow-up with his primary care provider on a routine basis. We will give the patient some information to follow-up with nephrology as well. Patient's mother, to whom I spoke with yesterday, made mention of a [facility] physician that specializes in patients disease. I explained the patient does need follow-up and I did try to bring of the point the patient has not followed up in about a year with anyone and has been managing without proper guidance. I did reinforce that the patient does need closer follow-up to help prevent repeat hospitalizations. * Patient is medically stable for discharge today. Patient may return to work on the . 2. hypocalcemia * With patient's paresthesias in his feet suspect that this is what is causing his symptoms. * Patient's calcium is down to 7.7. Magnesium is normal at 2. We will treat patient with calcium gluconate and reassess his lab work later on today. Patient to be did be escalated to a MedSurg status.
--- NOTE | 2017-08-17 10:30 | PCM.WORK.EX ---
Work/School Excuse Work/School Excuse for:: Patient Please excuse this person from:: Work From: 08/15/17 through: 08/17/17 - may return to normal duties
--- NOTE | 2017-08-17 10:32 | PCM.DC ---
- Discharge Diagnoses Current Active Problems: Current Active and Chronic Problems Hypokalemic periodic paralysis (Acute) You will use the following diet at home:: Calorie/Carbohydrate Controlled (specify 1200, 1400, etc) - low carbs Your food should be the consistency of: Regular Your liquids should be the consistency of: Regular/Thin Discharge Activity: - - avoid strenuous exercise Weight Bearing Status: Weight bearing as tolerated Call your doctor if you observe: - - worsening weakness. numbness of face or extremities. Allergies/Adverse Reactions: Allergies No Known Allergies Allergy (Verified 08/15/17 03:08) Medications to take at Discharge Potassium Chloride [K-Dur] 10 meq PO PRN PRN #30 tab 08/17/17 The following prescriptions were given: Potassium Chloride [K-Dur] 10 meq PO PRN PRN #30 tab PRN Reason: Pain Primary Care Physician: Aaron Ge, [employer] [Primary Care Provider] - Within 2 Weeks Please Follow Up With: Bharati Stephen DO - nephrology When: 2-4 weeks Proposed Discharge Date: 08/17/17
--- NOTE | 2017-08-17 10:43 | DCINST_ITS ---
- Discharge Diagnoses Current Active Problems: Current Active and Chronic Problems Hypokalemic periodic paralysis (Acute) You will use the following diet at home:: Calorie/Carbohydrate Controlled ( specify 1200, 1400, etc) - low carbs Your food should be the consistency of: Regular Your liquids should be the consistency of: Regular/Thin Discharge Activity: - - avoid strenuous exercise Weight Bearing Status: Weight bearing as tolerated Call your doctor if you observe: - - worsening weakness. numbness of face or extremities. Allergies/Adverse Reactions: Allergies No Known Allergies Allergy (Verified 08/15/17 03:08) Medications to take at Discharge Potassium Chloride [K-Dur] 10 meq PO PRN PRN #30 tab 08/17/17 The following prescriptions were given: Potassium Chloride [K-Dur] 10 meq PO PRN PRN #30 tab PRN Reason: Pain Primary Care Physician: Aaron Ge, [employer] [Primary Care Provider] - Within 2 Weeks Please Follow Up With: Bharati Stephen DO - nephrology When: 2-4 weeks Proposed Discharge Date: 08/17/17
--- NOTE | 2017-08-17 10:43 | PCM.DC.SUM ---
Discharge Date and Diagnosis - Problem List Patient Problems: Active and Suspected Problems Hypokalemic periodic paralysis (Acute) Date of Admission: 08/15/17 Date of Discharge: 08/17/17 - Primary Discharge Diagnosis Active and Suspected Problems Hypokalemic periodic paralysis (Acute) Hospital Course and Treatment Operations: None Procedures: None Summary of Care Provided: The patient is a 21 year old M presents with weakness due to severe hypokalemia (1.7). Patient has known HPP, yet has not followed up with any physician in 1 year. At home was managing with PRN 10 MeQ KCl, but ran out 1-2 weeks ago. Pt received numerous potassium infusions while he was here. He did have symptomatic hypocalcemia as well (7.7) and received Calcium gluconate. Overall, pt is better, but I continued to express the importance of follow up. 1. Hypokalemia: imProving. Today the patient's potassium is 4.6. history of hypokalemic periodic paralysis Patient's potassium was 1.7 Continue with potassium replacement Patient has been rather lax in regards to follow with primary care doctors and having lab work. Patient's symptoms are similar to when he has had weakness due to profound hypokalemia in the past which was about a year ago. TSH was normal at 3.56 Reevaluate patient's potassium level is potassium infusion and patient's response. Patient is feeling better than likely can be discharged home. Patient will need to demonstrate more appropriate follow-up in regards to helping prevent recurrent attacks. May consider initiation of acetazolamide 150 twice daily or Spironolactone 100 mg daily. Continue with potassium replacements Instructed the patient to have lab work as outpatient and to follow-up with his primary care provider on a routine basis. We will give the patient some information to follow-up with nephrology as well. Patient's mother, to whom I spoke with yesterday, made mention of a [facility] physician that specializes in patients disease. I explained the patient does need follow-up and I did try to bring of the point the patient has not followed up in about a year with anyone and has been managing without proper guidance. I did reinforce that the patient does need closer follow-up to help prevent repeat hospitalizations. Patient is medically stable for discharge today. Patient may return to work on the . 2. hypocalcemia With patient's paresthesias in his feet suspect that this is what is causing his symptoms. Patient's calcium is down to 7.7. Magnesium is normal at 2. We will treat patient with calcium gluconate and reassess his lab work later on today. [] Discharge Diet: - - low carbohydrates Discharge Activity: - - avoid strenuous exercise Weight Bearing Status: Weight bearing as tolerated Call your doctor if you observe: - - worsening weakness. numbness of face or extremities. Home Medications: Medications to take at Discharge Potassium Chloride [K-Dur] 10 meq PO PRN PRN #30 tab 08/17/17 Following Prescrptions Were Given to Patient: Potassium Chloride [K-Dur] 10 meq PO PRN PRN #30 tab PRN Reason: Pain Primary Care Physician: Aaron Ge, DIRECTOR [employer]PERATIONS-C [Primary Care Provider] - Within 2 Weeks Please Follow Up With: Bharati Stephen DO - nephrology When: 2-4 weeks Disposition: Home Minutes spent on discharge:: 40 Patient Condition:: Good Medical Necessity - Tobacco Use Smoking Status: Never smoker Meaningful Use Info Meaningful Use Diagnoses (Choose all that apply): None applicable Code Visit Inpatient E&M: 94323 Disch Hosp
--- NOTE | 2017-08-17 10:47 | DS.PCM_ITS ---
Discharge Date and Diagnosis - Problem List Patient Problems: Active and Suspected Problems Hypokalemic periodic paralysis (Acute) Date of Admission: 08/15/17 Date of Discharge: 08/17/17 - Primary Discharge Diagnosis Active and Suspected Problems Hypokalemic periodic paralysis (Acute) Hospital Course and Treatment Operations: None Procedures: None Summary of Care Provided: The patient is a 21 year old M presents with weakness due to severe hypokalemia (1.7). Patient has known HPP, yet has not followed up with any physician in 1 year. At home was managing with PRN 10 MeQ KCl, but ran out 1-2 weeks ago. Pt received numerous potassium infusions while he was here. He did have symptomatic hypocalcemia as well (7.7) and received Calcium gluconate. Overall, pt is better, but I continued to express the importance of follow up. 1. Hypokalemia: * imProving. Today the patient's potassium is 4.6. * history of hypokalemic periodic paralysis * Patient's potassium was 1.7 * Continue with potassium replacement * Patient has been rather lax in regards to follow with primary care doctors and having lab work. * Patient's symptoms are similar to when he has had weakness due to profound hypokalemia in the past which was about a year ago. * TSH was normal at 3.56 * Reevaluate patient's potassium level is potassium infusion and patient's response. Patient is feeling better than likely can be discharged home. * Patient will need to demonstrate more appropriate follow-up in regards to helping prevent recurrent attacks. * May consider initiation of acetazolamide 150 twice daily or Spironolactone 100 mg daily. * Continue with potassium replacements * Instructed the patient to have lab work as outpatient and to follow-up with his primary care provider on a routine basis. We will give the patient some information to follow-up with nephrology as well. Patient's mother, to whom I spoke with yesterday, made mention of a [facility] physician that specializes in patients disease. I explained the patient does need follow-up and I did try to bring of the point the patient has not followed up in about a year with anyone and has been managing without proper guidance. I did reinforce that the patient does need closer follow-up to help prevent repeat hospitalizations. * Patient is medically stable for discharge today. Patient may return to work on the . 2. hypocalcemia * With patient's paresthesias in his feet suspect that this is what is causing his symptoms. * Patient's calcium is down to 7.7. Magnesium is normal at 2. We will treat patient with calcium gluconate and reassess his lab work later on today. [] Discharge Diet: - - low carbohydrates Discharge Activity: - - avoid strenuous exercise Weight Bearing Status: Weight bearing as tolerated Call your doctor if you observe: - - worsening weakness. numbness of face or extremities. Home Medications: Medications to take at Discharge Potassium Chloride [K-Dur] 10 meq PO PRN PRN #30 tab 08/17/17 Following Prescrptions Were Given to Patient: Potassium Chloride [K-Dur] 10 meq PO PRN PRN #30 tab PRN Reason: Pain Primary Care Physician: Aaron Ge, GAME[employer] ENGINEER-C [Primary Care Provider] - Within 2 Weeks Please Follow Up With: Bharati Stephen DO - nephrology When: 2-4 weeks Disposition: Home Minutes spent on discharge:: 40 Patient Condition:: Good Medical Necessity - Tobacco Use Smoking Status: Never smoker Meaningful Use Info Meaningful Use Diagnoses (Choose all that apply): None applicable Code Visit Inpatient E&M: 63911 Disch Hosp
== END 2017-08-17 11:18 | disposition home or self-care (01) | DRG 93 ==
LOC: ED 04:38 → ICU 06:36 → MS3 08-16 16:39
PROVIDERS: Internal Medicine Critical Care Medicine; Admitting Provider Family Medicine; Emergency Provider Emergency Medicine; Family Provider Nurse Practitioner Family; PCP Nurse Practitioner Family
DX: G72.3 Periodic paralysis (principal); E83.51 Hypocalcemia; Z91.14 Patient's other noncompliance with medication regimen; Z91.19 Patient's noncompliance with other medical treatment and regimen
CPT/HCPCS: 36415; 80048; 83735; 84100; 84132; 84443; 85025; 87641; 93005; 97162; 97165; 97530; 97802; 99285; J7030; J7040; A4216; J0610

== ENCOUNTER 2018-06-18 13:57 | Emergency (ER) | payer SELFPAY ==
[2018-06-18] VITALS (7 sets, daily range): BP systolic 118–153; BP diastolic 58–87; PULSE 56–100; RESP 11–18; TEMP 37.3; O2SAT 96–99; BMI 31.4
--- NOTE | 2018-06-18 15:27 | EKG12_ITS ---
Test Reason : AB LABS Blood Pressure : / mmHG Vent. Rate : 062 BPM Atrial Rate : 062 BPM P-R Int : 160 ms QRS Dur : 092 ms QT Int : 372 ms P-R-T Axes : 047 058 -26 degrees QTc Int : 377 ms Sinus rhythm with marked sinus arrhythmia Nonspecific ST and T wave abnormality Abnormal ECG Confirmed by MORAIMA CROSS, YEIMI ([id number]), visual effects editor ELLIOTT HOGUE ([id number]) on 06/20/2018 9:41:39 AM Referred By: ISABEL Confirmed By:YEIMI VALERA MD
--- NOTE | 2018-06-18 15:28 | ED.VIS.GEN ---
History of Present Illness Chief Complaint: Abn Labs Informant: Patient, Family Onset: Today Context: Sudden Onset - upon waking up this AM Timing: Continuous Quality: weak Location: all over, but worst in thighs, torso, and triceps; equal bilaterally Current Severity: Severe Maximum Severity: Severe Worsened by: nothing Relieved by: nothing Associated Symptoms: feels a little sob due to the torso muscle weakness Narrative: Patient has a history of hypokalemic periodic paralysis and states he feels like this when his potassium drops. Last couple days he has had vomiting and diarrhea, he states that is completely resolved now and he feels like his stomach is much better, however he woke up feeling very weak today. He has been without a job and medical insurance for the past 30 days or so, so he has had no potassium supplementation at home to use, which is what he usually does when he feels this way. Prior similar symptoms: Yes - hypokalemic periodic paralysis - Past Medical History (1) Hypokalemic periodic paralysis Status: Chronic Past Medical History - Allergies and Home Meds Allergies/Adverse Reactions: Allergies No Known Allergies Allergy (Verified 06/18/18 14:02) Primary Care Physician: Aaron Ge, VELVET-C [Primary Care Provider] - 3-5 Days Surgical History: adenoidectomy Lives: With Family Smoking Status: Never smoker - Family History Maternal Family History: Reports: No pertinent history Review of Systems General: Denies: Chills, Fever, Sweats Eyes: Denies: Visual changes - bilaterally, Diplopia ENT: Denies: Rhinorrhea, Sore throat Cardiovascular: Denies: Chest pain, Palpitations Respiratory: Reports: Dyspnea. Denies: Cough, Dyspnea on exertion Gastrointestinal: Reports: Nausea - resolved, Vomiting - resolved, Diarrhea - resolved. Denies: Abdominal pain, Melena, Hematochezia Genitourinary: Denies: Dysuria, Hematuria, Frequency Musculoskeletal: Denies: Back pain, Extremity Pain Skin: Denies: Rash, Abscess, Wounds Neurological: Reports: Weakness - see HPI. Denies: Headache, Numbness Physical Exam Vital Signs/Narrative: Vital Signs Temp Pulse Resp BP Pulse Ox 06/18/18 14:47 56 L 11 L 133/76 H 97 06/18/18 13:58 99.2 F H 72 14 127/87 H 97 Inital Vital Signs reviewed: Yes General: Well nourished, Well developed, No Acute Distress Head: Normocephalic, Atraumatic Eyes: Perrl, EOMI. Negative for: Scleral icterus ENT: Moist mucous membranes, No rhinorrhea Neck: Supple, Nontender, No lymphadenopathy Cardiovascular: Regular rate, Regular rhythm, No murmurs, Normal S1, Normal S2 Respiratory: No distress, CTA bilaterally, Chest nontender Abdomen: Soft, Nontender, Nondistended, Normal bowel sounds Back: Nontender, Normal Inspection Extremities: Nontender, No edema Skin: Normal color, No rash Neurological: Alert, Oriented x3, Cranial nerves II-XII grossly intact, Normal Sensation, Normal DTR - w/ downgoing toes, no clonus., Weakness - able to move everything. objectively weak in proximal BLE and triceps more than anything else. Psychological: Normal affect, Normal Mood Diagnostic/Tx/Re-eval Laboratory Tests 06/18/18 06/18/18 Range/Units 14:55 14:55 WBC 4.7 (4.4-11.0) K/mm3 RBC 5.23 (4.6-6.2) M/mm3 Hgb 16.2 (13.0-16.5) g/dl Hct 45.1 (40-54) % MCV 86.2 (80-94) fL MCH 31.0 (27.0-32.0) pg MCHC 35.9 (32-36) g/gl RDW 11.9 (11.6-14.6) % RDW Differential 37.6 (35.1-43.9) fl Plt Count 199 (150-450) K/mm3 MPV 10.6 (6.2-12.0) fl Immature Gran % (Auto) 0.200 (0.0-0.9) % Neut % (Auto) 62.5 (47-70) % Lymph % (Auto) 21.4 (19-41) % Labette % (Auto) 12.5 H (0-10) % Eos % (Auto) 3.2 (0-5) % Baso % (Auto) 0.2 (0-1) % Absolute Neuts (auto) 2.9 (2.0-7.7) X10^3/uL Absolute Lymphs (auto) 1.01 (0.83-4.51) X10^3/ul Total Counted Not Reportable Sodium 141 (136-145) mmol/L Potassium 2.6 L* (3.5-5.1) mmol/L Chloride 103 (98-107) mmol/L Carbon Dioxide 30.0 (21.0-32.0) mmol/L Anion Gap 8 (5-15) BUN 10 (7-18) mg/dL Creatinine 1.11 (0.70-1.30) mg/dL Estim Creat Clear Calc 116.52 ml/min Est GFR (MDRD) Af Amer 108 (>60) mL/min Est GFR (MDRD) Non-Af 89 (>60) mL/min BUN/Creatinine Ratio 9.0 L (10-20) RATIO Glucose 97 (74-106) mg/dL Calcium 9.1 (8.5-10.1) mg/dL - EKG Initial EKG Interpretation: Sinus Arrythmia, Non-Specific ST Changes - with U waves present - Medical Decision Making With the EKG showing Q waves, IV potassium was ordered empirically, given his history. His potassium returned at 2.6, confirming hypokalemia. The rest of his labs are unremarkable. He received potassium chloride 20 mEq IV in the ED over 2 hours. On reevaluation he is feeling better and is able to ambulate. I think at this level and with his symptoms improving, it is reasonable for him to be discharged home on potassium replacement. He agrees and is comfortable with this plan. Is given 40 mEq orally prior to discharge. ED Disposition - Plan for ED Patient: Disposition: Home or Assisted Living Diagnosis: Hypokalemic periodic paralysis, Hypokalemia due to loss of potassium Instructions: ED Potassium Deficiency Prescriptions: Potassium Chloride [K-Dur] 2 tab PO BID #20 tab Referrals: Aaron Ge, [employer]BLER-C [Primary Care Provider] - 3-5 Days
--- NOTE | 2018-06-18 15:34 | ED.RN ---
PT AND MOTHER ARRIVE TO ED STATING HIS COMPLAINT WAS LOW POTASSIUM. MOTHER APPROACHED AN RN LEAVING THE DEPARTMENT BECAUSE I WAS IN TRIAGING ANOTHER PT AND STATED HER SON NEEDED SEEN IMMEDIATELY. RN ASKED WHAT THE PT COMPLAINT WAS AND THEN INFORMED THEM THAT I WAS BUSY CHECKING IN ANOTHER PT AND TO HAVE A SET IN THE WAITING ROOM. 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 THEN IN THE NEXT BREATH ASKED WHAT IF HE STOPS BREATHING. RN ANSWERED THAT IF HE STOPS BREATHING WE WILL MOVE ANOTHER PATIENT FROM THEIR ROOM AND GET YOU IN TO THE ER IF HE DOES. SOON I FINISHED CHECK PATIENT IN I PLACED MOTHER AND CHILD IN TRIAGE TX ROOM. PT WAS ABLE TO WALK TO TRIAGE WITHOUT ASSISTANCE. NO S/S OF ACUTE DISTRESS. VITAL UPON EVALUATION WHERE IN NORMAL RANGE. NO SOB OR ALTERED LOC. NO ACUTE PAIN. MOTHER INFORMED THAT HE WOULD BE SEEN SO POSSIBLE, BUT HE WOULD HAVE TO WAIT UNTIL I TRIAGED THE PATIENTS BEFORE HIM. KIRAN, RN [id number]
[2018-06-18 15:45] LABS: Absolute Lymphocyte Count 1.01 X10^3/ul (0.83-4.51); Absolute Neutrophil Count 2.9 X10^3/uL (2.0-7.7); Basophil# 0.01 X10^3/uL; Basophil% 0.2 % (0-1); Eosinophil# 0.15 X10^3/uL; Eosinophils% 3.2 % (0-5); Hematocrit 45.1 % (40-54); Hemoglobin 16.2 g/dl (13.0-16.5); Lymphocyte # 1.01 X10^3/ul (4.0); Lymphocyte % 21.4 % (19-41); Mean Corp Hgb Conc 35.9 g/gl (32-36); Mean Corpuscular Volume 86.2 fL (80-94); Mean Platelet Vol. 10.6 fl (6.2-12.0); Monocyte# 0.59 X10^3/uL; Monocyte% 12.5 % (0-10); Neutrophil # 2.94 X10^3/uL (2.7-7.7); Neutrophil % 62.5 % (47-70); Platelet Count 199 K/mm3 (150-450); RBC Distribution Width CV 11.9 % (11.6-14.6); RBC Distribution Width SD 37.6 fl (35.1-43.9); Red Blood Count 5.23 M/mm3 (4.6-6.2); White Blood Count 4.7 K/mm3 (4.4-11.0)
[2018-06-18 15:54] LABS: POSITIVE COUNT NO; POSITIVE DIFFERENTIAL NO; POSITIVE MORPHOLOGY NO
[2018-06-18 16:04] LABS: Anion Gap 8 (5-15); BUN 10 mg/dL (7-18); Calcium,Total 9.1 mg/dL (8.5-10.1); Chloride 103 mmol/L (98-107); Creatinine, Serum 1.11 mg/dL (0.70-1.30); EST Glomerular Filtration Rate 89 mL/min (>60); Est Glom Filt Rate - Afr Amer 108 mL/min (>60); Estimated Creatinine Clearance 116.52 ml/min; Glucose 97 mg/dL (74-106); Potassium 2.6 mmol/L (3.5-5.1); Sodium Level 141 mmol/L (136-145)
--- NOTE | 2018-06-18 16:06 | ED.RN ---
POTASSIUM 2.6 CALLED FROM THE LAB. DR HALL AWARE
[2018-06-18] MEDS: Potassium Chloride 10mEq/100mL 10 MEQ/100 ML IV.SOLN. 100 MEQ IV BOLUS ×3 (16:10→21:08)
[2018-06-18 22:42] LABS: Potassium 2.7 mmol/L (3.5-5.1)
== END 2018-06-18 23:21 | disposition home or self-care (01) ==
PROVIDERS: Emergency Provider Emergency Medicine; Family Provider Nurse Practitioner Family; PCP Nurse Practitioner Family
DX: G72.3 Periodic paralysis (principal)
CPT/HCPCS: 80048; 84132; 85025; 93005; 96365; 96367; 99285; J7030; A4216

== ENCOUNTER 2022-09-02 15:43 | Observation (INO) | payer BC, SELFPAY ==
[2022-09-02] VITALS (7 sets, daily range): BP systolic 128–177; BP diastolic 68–105; PULSE 90–107; RESP 15–18; TEMP 35.8–36.8; O2SAT 96–100; BMI 37.0; BMI 36.8
--- NOTE | 2022-09-02 16:32 | EKG12_ITS ---
Test Reason : HYPOKALEMIA Blood Pressure : / mmHG Vent. Rate : 087 BPM Atrial Rate : 087 BPM P-R Int : 156 ms QRS Dur : 098 ms QT Int : 332 ms P-R-T Axes : 047 063 -18 degrees QTc Int : 399 ms Normal sinus rhythm with sinus arrhythmia Nonspecific T wave abnormality Abnormal ECG Confirmed by AUSTEN CROSS, MIGUEL A ([id number]), book editor TEENA NIX ([id number]) on 09/05/2022 2:40:47 PM Referred By: Confirmed By:KELL BOYCE MD
--- NOTE | 2022-09-02 16:50 | EDS_ITS ---
HPI <ROMMEL Rodriguez - Last Filed: 09/02/22 20:54> History of Present Illness Chief Complaint: Abn Labs Narrative Narrative: Patient is a 26-year-old male with history of hypokalemia that is so severe that he has difficulty moving his body. Patient has had this for several years. He does have a PCP. Patient states that he took 60 mill equivalents of potassium today, he does have a prescription for this which is liquid. Patient states for the last 24 hours has been feeling more weak, more weakness while walking and he is concerned that this is happening again. Patient denies any chest pain. Patient states he was sick last week however he is getting over this. He denies any chest pain, shortness of breath. He denies any headache. PFSH <ROMMEL Rodriguez - Last Filed: 09/02/22 20:54> [facility] Medical History (Updated 09/02/22 @ 21:[address] Monica Oswald MD) Hypokalemic periodic paralysis Home Medications potassium chloride 20 mEq tablet,extended release(part/cryst) 2 tab PO BID #20 tabs 06/18/18 [Rx Last Taken Unknown] Allergy/AdvReac Type Severity Reaction Status Date / Time Sulfa (Sulfonamide Allergy Shortness Verified 09/02/22 16:31 Antibiotics) of breath Surgical History (Updated 09/02/22 @ 16:31 by Viviane Guerrero) History of adenoidectomy Social History Smoking Status: Never smoker ROS <ROMMEL Rodriguez - Last Filed: 09/02/22 20:54> ROS ED ROS Narrative Constitutional: Negative for fever, chills, weight loss. Positive for weakness Eyes: Negative for vision loss, vision change, double vision ENT: Negative for any sore throat, ear pain, congestion Cardiovascular: Negative for any chest pain, tightness, palpitations Respiratory: Negative for any cough, sputum production, hemoptysis, dyspnea, dyspnea on exertion, orthopnea Gastrointestinal: Negative for any abdominal pain, nausea, vomiting, diarrhea, constipation, blood in stool, blood in vomit : Negative for any urinary frequency, dysuria, retention, blood in urine Muscle skeletal: Negative for any muscle joint pain, stiffness, arthralgias, neck pain, back pain. Positive for myalgias, feeling of muscle weakness Neurological: Negative for any headache, syncope, numbness or tingling, dizziness Skin: Negative for any rashes, lumps, itching, abrasions, lacerations Psychiatric: Negative for any depression, anxiety, stress, suicidal ideation, homicidal ideation Hematologic: Negative for any easy bruising, excessive bruising, easy bleeding Allergies: Negative for any eczema, hives, rash EXAM <ROMMEL Rodriguez - Last Filed: 09/02/22 20:54> Physical Exam Narrative Exam Narrative: Vital signs reviewed. HEET: Head normocephalic atraumatic, TMs clear bilaterally. Posterior pharynx is clear, moist mucous membranes. Nares clear bilaterally. Neck: Supple with no lymphadenopathy or tenderness. No signs of meningismus, negative jolt sign. Cardiac: Regular rate and rhythm no murmurs gallops or rubs, equal peripheral pulses bilaterally. Respiratory: Lungs clear to auscultation bilaterally. No chest tenderness. Abdomen: Soft, nontender, nondistended. No abdominal bruit or pulsatile masses. No hepatosplenomegaly Extremities: No peripheral edema, no signs of gross trauma or deformity. Active full range of motion of all extremities. Patient appears to be moving all extremities. Neuro: Cranial nerves II through XII intact, no focal neurological deficits. Negative [place] Sign, equal patellar reflexes Skin: Clean dry and intact with no rash, purpura, petechiae, vesicles or pustules. Backs/flank: No CVA tenderness, no midline spinal tenderness, no deformity. Psych: Normal mood and affect. No SI, HI or acute psychosis. Const Vital Signs: 09/02/22 15:44 09/02/22 16:32 09/02/22 16:32 Temperature 96.5 F L Temperature Source Temporal Pulse Rate 98 92 Respiratory Rate 18 18 Respiratory Effort Normal Non-Labored Respiratory Pattern Normal Blood Pressure 177/105 H 144/68 H Blood Pressure Mean 129 93 Pulse Ox 100 98 Oxygen Delivery Method Room Air Room Air 09/02/22 18:18 09/02/22 20:09 Temperature Temperature Source Pulse Rate 92 107 H Respiratory Rate 17 16 Respiratory Effort Respiratory Pattern Blood Pressure 136/105 H 149/96 H Blood Pressure Mean 115 113 Pulse Ox 98 96 Oxygen Delivery Method Room Air Room Air Positive well nourished and well developed General Appearance ED: well developed <Dr. Carlyle Herrera MD - Last Filed: 09/02/22 21:36> Physical Exam Const Vital Signs: 09/02/22 15:44 09/02/22 16:32 09/02/22 16:32 Temperature 96.5 F L Temperature Source Temporal Pulse Rate 98 92 Respiratory Rate 18 18 Respiratory Effort Normal Non-Labored Respiratory Pattern Normal Blood Pressure 177/105 H 144/68 H Blood Pressure Mean 129 93 Pulse Ox 100 98 Oxygen Delivery Method Room Air Room Air 09/02/22 18:18 09/02/22 20:09 Temperature Temperature Source Pulse Rate 92 107 H Respiratory Rate 17 16 Respiratory Effort Respiratory Pattern Blood Pressure 136/105 H 149/96 H Blood Pressure Mean 115 113 Pulse Ox 98 96 Oxygen Delivery Method Room Air Room Air MDM <ROMMEL Rodriguez - Last Filed: 09/02/22 20:54> MDM Lab Data Labs: Laboratory Results - last 24 hr 09/02/22 09/02/22 09/02/22 16:48 16:48 17:19 WBC 11.1 H RBC 5.42 Hgb 15.9 Hct 45.6 MCV 84.1 MCH 29.3 MCHC 34.9 RDW Std Deviation 34.7 L RDW Coeff of Darian 11.6 Plt Count 301 MPV 9.7 Immature Gran % (Auto) 0.400 Neut % (Auto) 72.1 H Lymph % (Auto) 19.7 [place] % (Auto) 6.3 Eos % (Auto) 1.1 Baso % (Auto) 0.4 Absolute Neuts (auto) 8.0 H Absolute Lymphs (auto) 2.20 Nucleated RBC % 0 Sodium 143 Potassium 2.1 L* Chloride 109 H Carbon Dioxide 26.0 Anion Gap 8 BUN 13 Creatinine 1.08 Estim Creat Clear Calc 112.33 Est GFR (MDRD) Af Amer 107 Est GFR (MDRD) Non-Af 89 BUN/Creatinine Ratio 12.0 Glucose 114 H Calcium 9.0 Magnesium 2.0 Total Bilirubin 0.40 AST 21 ALT 31 Alkaline Phosphatase 52 Total Creatine Kinase 318 H Total Protein 7.1 Albumin 4.0 Globulin 3.1 Albumin/Globulin Ratio 1.3 Urine Color Yellow Urine Clarity Clear Urine pH 5.0 Ur Specific [place] 1.025 Urine Protein 15 H Urine Glucose (UA) Normal Urine Ketones 5 H Urine Occult Blood 10 H Urine Nitrite Negative Urine Bilirubin Negative Urine Urobilinogen Normal Ur Leukocyte Esterase 25 H Urine RBC 0 SEEN Urine WBC 0 SEEN Ur Squamous Epith Cells 0 SEEN Urine Bacteria 0 SEEN Urine Mucus 0 SEEN EKG Normal sinus rhythm: Attestation: I personally reviewed and interpreted this EKG as follows: Comments: Normal sinus rhythm with sinus arrhythmia, rate of 87 bpm, FL 156 ms, QRS duration 90 ms, no acute ST elevation, no acute infarct noted. Treatment and Re-Evaluation :: Patient presents to the emergency department with complaints of low potassium, muscle weakness. He does have a long history of this. Patient was seen here in 2018 when his potassium was 2.7, he received 20 mill equivalents of IV potassium felt better and was discharged. Patient appears generally well, vital signs are stable. Patient's EKG was unremarkable. Patient's laboratory values showed a critical low potassium of 2.1, magnesium was unremarkable, remainder the chemistries were unremarkable. Patient CBC shows a leukocytosis white blood count 11.1. At this time, the patient will receive 40 mill equivalents of IV potassium. The patient mentions that he does not want IV potassium because it makes him paralyzed he would rather have oral liquid potassium. We did have a long conversation, the patient is still unsure if he wants to be admitted. The patient will receive IV potassium and half the rate, this will be over 8 hours. Time was roughly 2044, the patient is tolerating IV potassium well. The patient has been receiving IV potassium for 2 hours. It is running at half the normal rate secondary to the patient being concerned that the IV form of potassium will cause him to have paralysis. <Dr. Carlyle Herrera MD - Last Filed: 09/02/22 21:36> [facility] Lab Data Attestation: I reviewed the patient's lab results. Labs: Laboratory Results - last 24 hr 09/02/22 09/02/22 09/02/22 16:48 16:48 17:19 WBC 11.1 H RBC 5.42 Hgb 15.9 Hct 45.6 MCV 84.1 MCH 29.3 MCHC 34.9 RDW Std Deviation 34.7 L RDW Coeff of Darian 11.6 Plt Count 301 MPV 9.7 Immature Gran % (Auto) 0.400 Neut % (Auto) 72.1 H Lymph % (Auto) 19.7 [place] % (Auto) 6.3 Eos % (Auto) 1.1 Baso % (Auto) 0.4 Absolute Neuts (auto) 8.0 H Absolute Lymphs (auto) 2.20 Nucleated RBC % 0 Sodium 143 Potassium 2.1 L* Chloride 109 H Carbon Dioxide 26.0 Anion Gap 8 BUN 13 Creatinine 1.08 Estim Creat Clear Calc 112.33 Est GFR (MDRD) Af Amer 107 Est GFR (MDRD) Non-Af 89 BUN/Creatinine Ratio 12.0 Glucose 114 H Calcium 9.0 Magnesium 2.0 Total Bilirubin 0.40 AST 21 ALT 31 Alkaline Phosphatase 52 Total Creatine Kinase 318 H Total Protein 7.1 Albumin 4.0 Globulin 3.1 Albumin/Globulin Ratio 1.3 Urine Color Yellow Urine Clarity Clear Urine pH 5.0 Ur Specific [place] 1.025 Urine Protein 15 H Urine Glucose (UA) Normal Urine Ketones 5 H Urine Occult Blood 10 H Urine Nitrite Negative Urine Bilirubin Negative Urine Urobilinogen Normal Ur Leukocyte Esterase 25 H Urine RBC 0 SEEN Urine WBC 0 SEEN Ur Squamous Epith Cells 0 SEEN Urine Bacteria 0 SEEN Urine Mucus 0 SEEN EKG Normal sinus rhythm: Attestation: I personally reviewed and interpreted this EKG as follows: Interpretation: - (possibly small U waves) Treatment and Re-Evaluation Comments:: Seen and evaluated independently and in conjunction with nurse practitioner. Agree with notes above unless documented otherwise. Last night patient started feeling more weak and stiff like his potassium is getting symptomatically low, worse today. On exam, generalized symmetric weakness all 4 extremities, otherwise benign exam. Normal neurologically. Labs show potassium of 2.1. Patient was given IV potassium, we cut the rate in half because he has a history of having more muscle pain and stiffness with IV potassium. He tolerated this well for about an hour but then started getting symptomatic and asked that we hold it which we did. He wants to do oral potassium which we can start, I advised him that that is something he can do at home, however he is too weak to walk, so plan is for admission. Discharge Plan Dx/Rx/DC Orders Clinical Impression: Hypokalemic periodic paralysis, Acute hypokalemia Disposition Disposition: Acute Care [facility]
[2022-09-02] MEDS: 0.9% Normal Saline 1,000 ML 999 ML IV (16:55)
[2022-09-02 17:10] LABS: Basophil# 0.04 X10^3/uL; Basophil% 0.4 % (0-1); Eosinophil# 0.12 X10^3/uL; Eosinophils% 1.1 % (0-5); Hematocrit 45.6 % (40-54); Hemoglobin 15.9 g/dL (13.0-16.5); Lymphocyte % 19.7 % (19-41); Mean Corp Hgb Conc 34.9 g/dL (32-36); Mean Corpuscular Hgb 29.3 pg (27.0-32.0); Mean Corpuscular Volume 84.1 fL (80-94); Mean Platelet Vol. 9.7 fl (6.2-12.0); Monocyte% 6.3 % (0-10); NRBC Flagged by Analyzer 0 % (0-5); Neutrophil # 8.04 X10^3/uL (2.7-7.7); Neutrophil % 72.1 % (47-70); Platelet Count 301 K/mm3 (150-450); RBC Distribution Width CV 11.6 % (11.6-14.6); RBC Distribution Width SD 34.7 fl (35.1-43.9); Red Blood Count 5.42 M/mm3 (4.6-6.2); White Blood Count 11.1 K/mm3 (4.4-11.0)
[2022-09-02 17:24] LABS: Bacteria 0 SEEN /hpf (None Seen); Mucous, Urine 0 SEEN /hpf (<or=2+); Red Blood Cells-Urine 0 SEEN /hpf (0-5); Squamous Epithelial Cells - UA 0 SEEN /hpf (0-5); White Blood Cells 0 SEEN /hpf (0-5)
[2022-09-02 17:25] LABS: ALB/GLOB Ratio 1.3 RATIO (0.9-2.4); AST(SGOT) 21 U/L (15-37); Alanine Aminotransfer ALT/SGPT 31 U/L (16-61); Alkaline Phosphatase 52 U/L (45-117); Anion Gap 8 (5-15); BUN 13 mg/dL (7-18); CPK Total, Creatine Kinase 318 U/L (39-308); Chloride 109 mmol/L (98-107); Creatinine, Serum 1.08 mg/dL (0.70-1.30); EST Glomerular Filtration Rate 89 mL/min (>60); Est Glom Filt Rate - Afr Amer 107 mL/min (>60); Estimated Creatinine Clearance 112.33 ml/min; Globulin 3.1 g/dL (2.2-4.2); Glucose 114 mg/dL (74-106); Protein, Total 7.1 g/dL (6.4-8.2); Sodium Level 143 mmol/L (136-145)
[2022-09-02 17:26] LABS: Potassium 2.1 mmol/L (3.5-5.1)
[2022-09-02 17:36] LABS: Color, Urine Yellow (Yellow); Glucose, Dipstick Normal (Normal); Ketone-Dipstick 5 mg/dl (Negative); Leukocyte Esterase-Dipstick 25 /ul (Negative); Nitrite-Dipstick Negative (Negative); Occult Blood-Urine 10 /ul (Negative); Protein-Dipstick 15 mg/dl (Negative); Specific Gravity, Urine 1.025 (1.002-1.030); Urine Bilirubin Dipstick Negative (Negative); Urine Clarity Clear (Clear); Urine Urobilinogen Normal (Normal)
[2022-09-02] MEDS: Potassium Chloride 10mEq/100mL 10 MEQ/100 ML IV.SOLN. 50 MEQ IV BOLUS ×2 (18:50→20:53)
--- NOTE | 2022-09-02 18:54 | ED.RN ---
PER DR. HALL VERBAL ORDER, START IV POTASSIUM AT HALF NORMAL SPEED (50 ML/HR) INSTEAD OF NORMAL 100 ML/HR TO ENSURE PT TOLERATES IV POTASSIUM WELL.
[2022-09-02] MEDS: Potassium Chloride Oral Soln 20 MEQ/15 ML UDC 40 MEQ PO (21:40)
--- NOTE | 2022-09-02 21:41 | HP.PCM.HOS_ITS ---
HPI - General General Date of Admission: 09/02/22 Date of Service: 09/02/22 Chief Complaint: Weakness. HPI Narrative The patient is a 26 y/o M w/ PMHx: Obesity, Hereditary Hypokalemic periodic paralysis with prior records noting noncompliance with his K supplementation who presents to the [facility] ED on 09/02/22 with history of self administration of 60 mill equivalents of potassium on day of presentation with a prescription ongoing which is liquid he notes however in the last 24 hours he reports feeling more weak, worse with activity with recent upper respiratory type illness the week prior although the symptoms seem to been improving but given his mild ability prompted ED evaluation. Work-up in the ED included T96.5, heart rate initially 98 with most recent repeat 107, BP initially 177/105 with most recent repeat 149/96, respiratory rate 18, 100% room air, CBC with WC 11.1 coming with 15.9, platelet 301 with mild left shift, CMP with potassium 2.1, chloride 109, glucose 114, calcium 9.0, magnesium 2.0, total creatinine kinase 318, urinalysis with evidence of elevated specific gravity 1.025, protein 15, ketone 5, occult blood 10, leukocyte Estrace 25, negative nitrite, no evidence of UTI. EKG with sinus rhythm with questionable possible small U waves with no acute evidence of ischemia. In the ED patient initiated on potassium 40 mill equivalent IV however he was only able to tolerate 2 bags and was administered then potassium chloride 40 mill equivalent p.o. x1 but complained of significant muscle cramps and concern for catalyst of further paralysis therefore the IV was discontinued and patient was administered Norflex 60 mg IM x1 as well as 1 L normal saline. Patient was offered oral supplementation with discharge to home however felt he was too weak therefore planned admission. [facility] Medical History Hypokalemic periodic paralysis Obesity Home Medications potassium chloride 20 mEq/15 mL oral liquid 20 meq PO BID PRN Hypokalemia 09/02/22 [History Last Taken Unknown] Allergy/AdvReac Type Severity Reaction Status Date / Time Sulfa (Sulfonamide Allergy Shortness Verified 09/02/22 16:31 Antibiotics) of breath Family History (Updated 09/02/22 @ 22:[address] Monica Oswald MD) Father Familial hypokalemic periodic paralysis Hypertension Brother Familial hypokalemic periodic paralysis Hypertension Mother Hypothyroidism Surgical History History of adenoidectomy Social History (Updated 09/02/22 @ 22:[address] Monica Oswald MD) household members: significant other and children Smoking Status: Never smoker alcohol intake: current alcohol intake frequency: holidays/special occasions only substance use type: does not use ROS ROS Narrative Admission Review of Systems: CONSTITUTIONAL: No weight loss, fever, chills, + weakness or fatigue. HEENT: Eyes: No visual loss, blurred vision, double vision or yellow sclerae. Ears, Nose, Throat: No hearing loss, sneezing, congestion, runny nose or sore throat. SKIN: No rash or itching, lesions, wounds. CARDIOVASCULAR: No chest pain, chest pressure or chest discomfort, palpitations, edema, orthopnea, syncopal events. RESPIRATORY: No shortness of breath, cough or sputum, wheezing, hemoptysis. GASTROINTESTINAL: No anorexia, nausea, vomiting or diarrhea, abdominal pain, melena, BRBPR. GENITOURINARY: No dysuria, frequency, urgency or retention. NEUROLOGICAL: + Episodes of paralysis. No headache, dizziness, syncope, paralysis, ataxia, numbness or tingling in the extremities, focal weakness, change in bowel or bladder control, seizure. MUSCULOSKELETAL: + muscle, back pain, joint pain or stiffness. HEMATOLOGIC: No anemia, bleeding or bruising. LYMPHATICS: No enlarged nodes. No history of splenectomy. PSYCHIATRIC: No history of depression or anxiety. ENDOCRINOLOGIC: No reports of sweating, cold or heat intolerance. No polyuria or polydipsia. ALLERGIES: No history of asthma, hives, eczema or rhinitis. Vital Signs Vital Signs Vital Signs: 09/02/22 15:44 09/02/22 16:32 09/02/22 16:32 Temperature 96.5 F L Temperature Source Temporal Pulse Rate 98 92 Respiratory Rate 18 18 Respiratory Effort Normal Non-Labored Respiratory Pattern Normal Blood Pressure 177/105 H 144/68 H Blood Pressure Mean 129 93 Pulse Ox 100 98 Oxygen Delivery Method Room Air Room Air 09/02/22 18:18 09/02/22 20:09 Temperature Temperature Source Pulse Rate 92 107 H Respiratory Rate 17 16 Respiratory Effort Respiratory Pattern Blood Pressure 136/105 H 149/96 H Blood Pressure Mean 115 113 Pulse Ox 98 96 Oxygen Delivery Method Room Air Room Air Weight Weight: 265 lb 14.04 oz Body Mass Index (BMI) 37.0 Physical Exam Narrative Physical Examination: General: Awake, alert, oriented x 3 and cooperative, seated upright in ED bed, fatigued appearing otherwise no acute distress. Skin: Normal color, normal turgor, no icterus, no cyanosis. HEENT: AT/NC, EOMI, PERRLA, MMM, no carotid bruits or JVD noted. Lungs: CTA bilaterally, moderate effort, mild decrease BL bases, no rales, ronchi or wheezing. Heart: Currently regular rate and rhythm; no gallop, rub audible. Abdomen: Soft, obese, NTTP, ND, normal BS, no HSM. Extremities: No cyanosis, clubbing, or edema. Neurological: Patient awake, alert, oriented as noted, cognitive function intact; pupils equally reactive to light and accommodation, cranial nerves II- XII grossly normal, moving all 4 extremities, no focal deficits, strength moderately to severely global decrease secondary to acute hyperkalemic presentation, needs assistance getting his legs up even onto the bed because of his generalized weakness. Psychiatric: Affect appears fatigued otherwise normal, no acute evidence of depressive or anxiety feelings. Results Lab / Micro Data Result Diagrams: 09/02/22 16:48 09/02/22 16:48 Labs: Laboratory Results - last 24 hr 09/02/22 16:48: WBC 11.1 H, RBC 5.42, Hgb 15.9, Hct 45.6, MCV 84.1, MCH 29.3, MCHC 34.9, RDW Std Deviation 34.7 L, RDW Coeff of Darian 11.6, Plt Count 301, MPV 9.7, Immature Gran % (Auto) 0.400, Neut % (Auto) 72.1 H, Lymph % (Auto) 19.7, [place] % (Auto) 6.3, Eos % (Auto) 1.1, Baso % (Auto) 0.4, Absolute Neuts (auto) 8.0 H, Absolute Lymphs (auto) 2.20, Nucleated RBC % 0 09/02/22 16:48: Sodium 143, Potassium 2.1 L*, Chloride 109 H, Carbon Dioxide 26.0, Anion Gap 8, BUN 13, Creatinine 1.08, Estim Creat Clear Calc 112.33, Est GFR (MDRD) Af Amer 107, Est GFR (MDRD) Non-Af 89, BUN/Creatinine Ratio 12.0, Glucose 114 H, Calcium 9.0, Magnesium 2.0, Total Bilirubin 0.40, AST 21, ALT 31, Alkaline Phosphatase 52, Total Creatine Kinase 318 H, Total Protein 7.1, Albumin 4.0, Globulin 3.1, Albumin/Globulin Ratio 1.3 09/02/22 17:19: Urine Color Yellow, Urine Clarity Clear, Urine pH 5.0, Ur Specific [place] 1.025, Urine Protein 15 H, Urine Glucose (UA) Normal, Urine Ketones 5 H, Urine Occult Blood 10 H, Urine Nitrite Negative, Urine Bilirubin Negative, Urine Urobilinogen Normal, Ur Leukocyte Esterase 25 H, Urine RBC 0 SEEN, Urine WBC 0 SEEN, Ur Squamous Epith Cells 0 SEEN, Urine Bacteria 0 SEEN, Urine Mucus 0 SEEN Assessment & Plan Assessment/Plan (1) Acute hypokalemia: PLAN: Plan The patient is a 26 y/o M w/ PMHx: Obesity, Hereditary Hypokalemic periodic paralysis with prior records noting noncompliance with his K supplementation who presents to the [facility] ED on 09/02/22 with history of self administration of 60 mill equivalents of potassium on day of presentation with a prescription ongoing which is liquid he notes however in the last 24 hours he reports feeling more weak, worse with activity. #1. Hereditary Hypokalemic Periodic Paralysis with Acute Hypokalemia: Will admit to PCU, maintain on telemetry, K upon admission 2.1, mag normal, Ca++ normal, will continue oral aggressive supplementation, discussed again potential for IVFs w/ K and patient has declined attempt at this time, noting his paralysis worsens with any IV infusion attempts with only 20 mEq successfully administered IV in the ED and 60 mEq oral following, maintain on fall precautions, consult nutrition for high K item education w/ low carb, trend K levels. #2. Elevated BP without hypertensive diagnosis: BP upon presentation elevated above goal, no specific prior hypertensive history, will continue to monitor and if patient diagnosis consistent with hypertension given his underlying hereditary hypokalemic periodic paralysis diagnosis would benefit from consideration of potentially spironolactone usage, as needed IV hydralazine in interim. #3. Obesity: Weight loss and lifestyle changes encouraged. #4. DVT prophylaxis: Low risk. Admission Evaluation Time spent evaluating chart, patient history, patient evaluation, care planning and discussion with specialists: 55 minutes. Charges/Coding Visit Charges Inpatient E&M: 73538 Init Hosp L2
--- NOTE | 2022-09-02 22:08 | NURSING ---
108 obs white hypokalemia
[2022-09-02 23:23] LABS: Anion Gap 10 (5-15); BUN 14 mg/dL (7-18); BUN/Creat Ratio 12.1 RATIO (10-20); Calcium,Total 8.3 mg/dL (8.5-10.1); Chloride 110 mmol/L (98-107); Creatinine, Serum 1.16 mg/dL (0.70-1.30); EST Glomerular Filtration Rate 82 mL/min (>60); Est Glom Filt Rate - Afr Amer 99 mL/min (>60); Estimated Creatinine Clearance 104.58 ml/min; Glucose 106 mg/dL (74-106); Potassium 2.2 mmol/L (3.5-5.1); Sodium Level 143 mmol/L (136-145)
[2022-09-02] MEDS: Potassium Chloride 10mEq/100mL 10 MEQ/100 ML IV.SOLN. 100 MEQ IV BOLUS (23:31)
[2022-09-03] MEDS: Potassium Chloride Oral Soln 20 MEQ/15 ML UDC 60 MEQ PO ×2 (00:22→10:13)
[2022-09-03] MEDS: Potassium Chloride 10mEq/100mL 10 MEQ/100 ML IV.SOLN. 100 MEQ IV BOLUS ×2 (00:30→10:11)
[2022-09-03 03:54] VITALS: BP 134/82; PULSE 92; RESP 16; TEMP 36.7; O2SAT 98
--- NOTE | 2022-09-03 04:47 | NURSING ---
Pt had periods of noticeable apnea pulse ox dropped to 90%. Placed on 2l nasal canula while sleeping.
[2022-09-03 07:05] VITALS: O2SAT 100
--- NOTE | 2022-09-03 07:43 | CPS ---
pt was on 3lnc sat 100% so titrated to 2lnc, was told nurse put him on 02 during night bc of his sleep apnea and his desaturation.
[2022-09-03 07:45] LABS: Absolute Neutrophil Count 6.6 X10^3/uL (2.0-7.7); Basophil# 0.02 X10^3/uL; Basophil% 0.2 % (0-1); Eosinophil# 0.22 X10^3/uL; Eosinophils% 2.3 % (0-5); Hematocrit 39.7 % (40-54); Lymphocyte % 22.8 % (19-41); Mean Corp Hgb Conc 35.3 g/dL (32-36); Mean Corpuscular Hgb 29.7 pg (27.0-32.0); Mean Corpuscular Volume 84.3 fL (80-94); Mean Platelet Vol. 9.8 fl (6.2-12.0); Monocyte# 0.62 X10^3/uL; Monocyte% 6.4 % (0-10); NRBC Flagged by Analyzer 0 % (0-5); Neutrophil # 6.56 X10^3/uL (2.7-7.7); Neutrophil % 67.9 % (47-70); Platelet Count 261 K/mm3 (150-450); RBC Distribution Width CV 11.7 % (11.6-14.6); RBC Distribution Width SD 35.7 fl (35.1-43.9); Red Blood Count 4.71 M/mm3 (4.6-6.2); White Blood Count 9.7 K/mm3 (4.4-11.0)
[2022-09-03 08:30] LABS: ALB/GLOB Ratio 1.1 RATIO (0.9-2.4); AST(SGOT) 24 U/L (15-37); Alanine Aminotransfer ALT/SGPT 21 U/L (16-61); Albumin, Serum 3.2 g/dL (3.2-5.0); Alkaline Phosphatase 44 U/L (45-117); Anion Gap 8 (5-15); BUN 12 mg/dL (7-18); Calcium,Total 7.9 mg/dL (8.5-10.1); Chloride 112 mmol/L (98-107); EST Glomerular Filtration Rate 97 mL/min (>60); Est Glom Filt Rate - Afr Amer 117 mL/min (>60); Estimated Creatinine Clearance 121.32 ml/min; Globulin 2.9 g/dL (2.2-4.2); Glucose 103 mg/dL (74-106); Potassium 2.5 mmol/L (3.5-5.1); Protein, Total 6.1 g/dL (6.4-8.2); Sodium Level 143 mmol/L (136-145)
[2022-09-03 09:50] VITALS: BP 142/87; PULSE 98; RESP 18; TEMP 36.6; O2SAT 99
[2022-09-03 10:00] VITALS: O2SAT 98
[2022-09-03 13:08] LABS: Anion Gap 4 (5-15); BUN 10 mg/dL (7-18); BUN/Creat Ratio 10.6 RATIO (10-20); Calcium,Total 8.2 mg/dL (8.5-10.1); Chloride 111 mmol/L (98-107); Creatinine, Serum 0.94 mg/dL (0.70-1.30); EST Glomerular Filtration Rate 103 mL/min (>60); Est Glom Filt Rate - Afr Amer 125 mL/min (>60); Estimated Creatinine Clearance 129.06 ml/min; Glucose 107 mg/dL (74-106); Potassium 4.8 mmol/L (3.5-5.1); Sodium Level 141 mmol/L (136-145)
--- NOTE | 2022-09-03 13:15 | CASEMGMT ---
Social Work Note SW met with patient and patient's guest and introduced herself and role as [facility] Cloth Tester. Patient was lying on hospital bed and agreeable to speak with SW with guest present. SW inquired about patient's plan at discharge. Patient reports he can return home and has no other needs, declining additional resources. SW remains available if needs arise. Plan: home Amina JESSICA, KYLIE
[2022-09-03 13:16] VITALS: BP 140/88; PULSE 99; RESP 18; TEMP 36.6; O2SAT 99
--- NOTE | 2022-09-03 13:17 | PCM.DC.SUM ---
Providers Date of Admission: 09/02/22 Date of Discharge: 09/03/22 Primary Care Physician: Aaron Ge, [employer]IVE[employer] Reason For Visit: HYPOKALEMIA Diagnosis Discharge Diagnosis (1) Acute hypokalemia: Status: Acute Code(s): E87.6 - Hypokalemia Medications at Discharge Home Medications potassium chloride 40 mEq/15 mL oral liquid 40 meq (15 mL) PO DAILY #473 mL 09/03/22 Hospital Course Operations None Procedures None Summary of Care Provided Minutes Spent on Discharge: 45 Hospital Course: Patient is a 26-year-old male with a past medical history as outlined which includes hereditary hypokalemic. Of paralysis with records noting noncompliance with his potassium supplementation. He was admitted through the ED on 09/02/2022 with a complaint of feeling weak which was worsened with activity. He had given himself 60 mEq of potassium on the day of presentation but said his symptoms did not improve. He had had a recent upper respiratory illness as well. On admission his magnesium was 2 and potassium was 2.1. Urinalysis showed no evidence of UTI and total CPK was 318. EKG showed no acute ST changes. 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 His potassium was aggressively supplemented both orally and IV. Potassium came up to 4.8 at time of discharge. He was discharged with p.o. potassium chloride 40 mEq daily in liquid form as this was his preference. He is follow-up with his primary care doctor and counseled to be compliant with his potassium supplementation. Patient seen and examined prior to discharge. He had no complaints and had an uneventful night. Review of systems otherwise negative. Labs and vitals reviewed. Home medication reviewed and reconciled. Physical Exam Const alert, oriented x3 and no apparent distress General Appearance: cooperative, comfortable and well developed Orientation / Consciousness: awake Exam Limitations: no limitations HEENT normocephalic, head/scalp atraumatic and moist oral mucous membranes Mouth: oral and palatal mucosa normal Eyes PERRL, EOMs intact bilaterally and conjunctivae normal Neck no lymphadenopathy and supple Resp normal respiratory effort, no retractions, no use of accessory muscles and clear to auscultation bilaterally Cardio regular rate, regular rhythm, S1 normal heart sound, S2 normal heart sound and no murmurs GI normal to inspection, nondistended, normoactive bowel sounds, soft to palpation, non-tender and non-distended Extremity normal to inspection, full ROM and no clubbing, cyanosis or edema Skin no rashes or lesions noted, no wounds and skin turgor normal Neuro oriented x3, CN's II-XII intact bilaterally, moves all extremities and no focal motor deficits Sensorium / Orientation: awake and alert Speech: speech normal Motor Exam: strength 5/5 throughout Psych affect normal Weight / BMI Weight Weight: 264 lb 1.82 oz Body Mass Index (BMI) 36.8 ABG / Lab / Microbiology Data Result Diagrams: 09/03/22 07:11 09/03/22 12:08 Laboratory: Laboratory Results - last 24 hr 09/02/22 16:48: WBC 11.1 H, RBC 5.42, Hgb 15.9, Hct 45.6, MCV 84.1, MCH 29.3, MCHC 34.9, RDW Std Deviation 34.7 L, RDW Coeff of Darian 11.6, Plt Count 301, MPV 9.7, Immature Gran % (Auto) 0.400, Neut % (Auto) 72.1 H, Lymph % (Auto) 19.7, [place] % (Auto) 6.3, Eos % (Auto) 1.1, Baso % (Auto) 0.4, Absolute Neuts (auto) 8.0 H, Absolute Lymphs (auto) 2.20, Nucleated RBC % 0 09/02/22 16:48: Sodium 143, Potassium 2.1 L*, Chloride 109 H, Carbon Dioxide 26.0, Anion Gap 8, BUN 13, Creatinine 1.08, Estim Creat Clear Calc 112.33, Est GFR (MDRD) Af Amer 107, Est GFR (MDRD) Non-Af 89, BUN/Creatinine Ratio 12.0, Glucose 114 H, Calcium 9.0, Magnesium 2.0, Total Bilirubin 0.40, AST 21, ALT 31, Alkaline Phosphatase 52, Total Creatine Kinase 318 H, Total Protein 7.1, Albumin 4.0, Globulin 3.1, Albumin/Globulin Ratio 1.3 09/02/22 17:19: Urine Color Yellow, Urine Clarity Clear, Urine pH 5.0, Ur Specific [place] 1.025, Urine Protein 15 H, Urine Glucose (UA) Normal, Urine Ketones 5 H, Urine Occult Blood 10 H, Urine Nitrite Negative, Urine Bilirubin Negative, Urine Urobilinogen Normal, Ur Leukocyte Esterase 25 H, Urine RBC 0 SEEN, Urine WBC 0 SEEN, Ur Squamous Epith Cells 0 SEEN, Urine Bacteria 0 SEEN, Urine Mucus 0 SEEN 09/02/22 22:52: Sodium 143, Potassium 2.2 L*, Chloride 110 H, Carbon Dioxide 23.0, Anion Gap 10, BUN 14, Creatinine 1.16, Estim Creat Clear Calc 104.58, Est GFR (MDRD) Af Amer 99, Est GFR (MDRD) Non-Af 82, BUN/Creatinine Ratio 12.1, Glucose 106, Calcium 8.3 L 09/03/22 07:11: WBC 9.7, RBC 4.71, Hgb 14.0, Hct 39.7 L, MCV 84.3, MCH 29.7, MCHC 35.3, RDW Std Deviation 35.7, RDW Coeff of [place] 11.7, Plt Count 261, MPV 9.8, Immature Gran % (Auto) 0.400, Neut % (Auto) 67.9, Lymph % (Auto) 22.8, [place] % (Auto) 6.4, Eos % (Auto) 2.3, Baso % (Auto) 0.2, Absolute Neuts (auto) 6.6, Absolute Lymphs (auto) 2.20, Nucleated RBC % 0 09/03/22 07:11: Sodium 143, Potassium 2.5 L*, Chloride 112 H, Carbon Dioxide 23.0, Anion Gap 8, BUN 12, Creatinine 1.00, Estim Creat Clear Calc 121.32, Est GFR (MDRD) Af Amer 117, Est GFR (MDRD) Non-Af 97, BUN/Creatinine Ratio 12.0, Glucose 103, Calcium 7.9 L, Total Bilirubin 0.80, AST 24, ALT 21, Alkaline Phosphatase 44 L, Total Protein 6.1 L, Albumin 3.2, Globulin 2.9, Albumin/Globulin Ratio 1.1 09/03/22 12:08: Sodium 141, Potassium 4.8, Chloride 111 H, Carbon Dioxide 26.0, Anion Gap 4 L, BUN 10, Creatinine 0.94, Estim Creat Clear Calc 129.06, Est GFR (MDRD) Af Amer 125, Est GFR (MDRD) Non-Af 103, BUN/Creatinine Ratio 10.6, Glucose 107 H, Calcium 8.2 L D/C Instructions Discharge Diet: No restrictions and - (high potassium diet) Call your doctor if you observe: Fever of 101 or Higher, Shortness of breath, Dizziness, Swelling in the ankles, Chest pain and Increased palpitations (irregular heartbeat) Meaningful Use Info Meaningful Use Diagnoses (Choose all that apply): None applicable Discharge Plan Admission Admit Date/Time: 09/02/22 21:34 Primary Reason for Your Visit: hypokalemia Attending Provider: Tri Ramos Primary Care Provider: Aaron Ge [employer]IVE Consulting Providers: Monica Oswald Instructions Patient Instructions: Hypokalemia Dc, High Potassium Diet Dc, ED Potassium-Rich Foods Discharge Orders/Prescriptions Prescriptions: New potassium chloride 40 mEq/15 mL liquid 40 meq PO DAILY Qty: 473 2RF Discontinued potassium chloride 20 mEq/15 mL liquid 20 meq PO BID PRN (Reason: Hypokalemia) Label Comments: take 15 milliliters by mouth twice a day with food Referrals / Follow Up: Aaron Ge [employer] REPRESENTATIVE, [employer] REPRESENTATIVE-[employer] [Primary Care Provider] - Within 1 Week Disposition Disposition (needs filled in before D/C Order can be placed): Home, Self Care Charges/Coding Visit Charges Inpatient E&M: 68528 Disch Hosp >30min
[2022-09-03 14:00] VITALS: O2SAT 99
== END 2022-09-03 14:13 | disposition home or self-care (01) ==
LOC: ED 21:26 → PCU 21:45
PROVIDERS: Nurse Practitioner; Admitting Provider Family Medicine; Emergency Provider Emergency Medicine; PCP Nurse Practitioner Family; Visit Provider Student in an Organized Health Care Education/Training Program
DX: E87.6 Hypokalemia (principal); R53.1 Weakness; G72.3 Periodic paralysis; Z91.148 Patient's other noncompliance with medication regimen for other reason; E66.9 Obesity, unspecified; Z68.36 Body mass index [BMI] 36.0-36.9, adult
CPT/HCPCS: 36415; 80048; 80053; 81001; 82550; 83735; 85025; 93005; 96361; 96365; 96366; 97802; 99221; 99284; J7030; J7040; A4216; G0378

== ENCOUNTER 2024-12-18 19:12 | Emergency (ER) | payer BC, SELFPAY ==
[2024-12-18 19:13] VITALS: BP 132/67; PULSE 83; RESP 16; TEMP 36; O2SAT 100; BMI 30.7
--- NOTE | 2024-12-18 19:51 | EDS_ITS ---
HPI History of Present Illness Chief Complaint: Eye Problem Detail of Chief Complaint: Foreign body sensation to right eye Informant: patient Narrative Narrative: Patient presents with foreign body sensation of the right eye. Patient states that he noticed something go into his eye while walking out the door at work. He does not want to file a Workmen's Comp. He been flushing it but just cannot get it out. He thinks he sees something on the color part of the eye. Today he woke up and his eye was red and was matted shut. Denies fevers or chills or sweats. PFSH PFS Medical History (Updated 12/18/24 @ 20:[address] Nano Locke DO) Obesity Hypokalemic periodic paralysis Home Medications ?Medication ?Instructions ?Recorded ?Last Taken ?Type NK 12/18/24 Unknown History Allergy/AdvReac Type Severity Reaction Status Date / Time Sulfa (Sulfonamide Allergy Shortness Verified 12/18/24 19:12 Antibiotics) of breath Family History (Updated 09/02/22 @ 22:[address] Monica Oswald MD) Father Familial hypokalemic periodic paralysis Hypertension Brother Familial hypokalemic periodic paralysis Hypertension Mother Hypothyroidism Surgical History History of adenoidectomy Social History (Updated 09/02/22 @ 22:[address] Monica Oswald MD) household members: significant other and children Smoking Status: Never smoker alcohol intake: current alcohol intake frequency: holidays/special occasions only substance use type: does not use ROS ROS ED Review of Systems ROS Unobtainable: other Constitutional Constitutional ED: Reports lethargy; Denies chills, fever(s), sweats or weight loss Eyes Eyes: Reports other Details: Foreign body sensation right eye ; Denies blurry vision, change in vision or diplopia ENT ENT ED: Denies rhinorrhea or sore throat Cardiovascular Cardiovascular: Denies chest pain, orthopnea or racing heartbeat Respiratory/Chest Respiratory/Chest: Denies cough, dyspnea, dyspnea on exertion, orthopnea or sputum Gastrointestinal Gastrointestinal: Denies abdominal pain, diarrhea, nausea or vomiting Genitourinary Genitourinary ED: Denies dysuria, hematuria or urinary frequency Musculoskeletal Musculoskeletal: Denies arthralgias, back pain, myalgias or neck pain Integumentary Denies abscess, Abrasions or rash Neurologic Neurologic: Denies headache(s) or weakness Psychiatric Psychiatric: Denies anxiety, depression or suicidal thoughts Endocrine Endocrinology: Denies polydipsia, polyphagia or polyuria Hematologic/Lymphatic Hematologic/Lymphatic: Denies easy bleeding, easy bruising or lymphadenopathy Allergic/Immunologic Allergic/Immunologic ED: Denies mouth swelling, tongue swelling or urticaria EXAM Physical Exam Const Vital Signs: 12/18/24 19:13 Temperature 96.8 F L Temperature Source Temporal Pulse Rate 83 Respiratory Rate 16 Blood Pressure 132/67 H Blood Pressure Mean 88 Pulse Ox 100 Oxygen Delivery Method Room Air Positive well nourished and well developed General Appearance ED: well developed and NAD HEENT Reports TM's clear and moist mucous membranes HEENT Narrative: Right eye-patient has some conjunctival erythema medial portion of the globe. At the 3 o'clock position on the cornea there is a small possible foreign body noted. Extraocular muscle movements are normal. Pupils are equal react light bilaterally. normocephalic and atraumatic; Negative for trauma or tenderness Tympanic Membrane ED: Yes TM's clear Eyes PERRL and EOMs intact bilaterally General Eye ED: Negative for pale conjunctiva or scleral icterus Neck no lymphadenopathy, supple and no JVD General: Negative for tenderness Chest Wall inspection of chest normal and palpation of chest normal Chest: Negative for tenderness Resp normal respiratory effort and clear to auscultation bilaterally Effort and Inspection: Negative for respiratory distress or pain with movement Auscultation: Negative for rhonchi, wheezes or diminished lung sounds Cardio regular rate, regular rhythm, S1 normal heart sound, S2 normal heart sound and no murmurs Peripheral Pulses: pulses 2+ throughout GI normal to inspection, nondistended, normoactive bowel sounds, soft to palpation, non-tender, non-distended and no masses Back/Spine no CVA tenderness and no thoracic nor lumbar tenderness Extremity normal to inspection General Extremety ED: Negative for edema General Extremity: Negative for edema Neuro oriented x3, CN's II-XII intact bilaterally, no sensory deficits noted and gait normal Sensorium / Orientation: awake, alert, oriented to person, oriented to place and oriented to time Motor Exam: strength 5/5 throughout and strength abnormal Psych mental status grossly normal Skin no rashes or lesions noted and no wounds MDM MDM MDM Narrative Medical decision making narrative: Patient presents with foreign body sensation to the right eye. The eye was anesthetized with tetracaine and stained with foreseen. There was a small punctate appearing foreign body at the 3 o'clock position on the cornea. Difficult to see without magnification. I was able to use the slit lamp and do note that there is a rust ring like abnormality at the 3 o'clock position on the cornea that is punctate. It appears that there is been epithelialization over it. Patient does have some conjunctival erythema as well. He has no vision changes. Case discussed with ophthalmology Dr. Simmons who recommended antibiotic drops and he will see him first thing in a.m. tomorrow morning. Discharge Plan Triage Chief Complaint: Eye Problem ED Provider: Nano Locke Dx/Rx/DC Orders Clinical Impression: Acute foreign body of right cornea Instructions: Foreign Body, Cornea Prescriptions: No Action NK Primary Care Provider: Aaron Ge NP Referrals: Shravan Simmons MD [Med Staff - Active Staff] - 1 Day Aaron Ge NP, DEPARTMENT OF MATHEMATICS CHAIR-C [Primary Care Provider] - Activity Restrictions/Additional Instructions: Arrived to Dr. Simmons office at 8 AM to be seen or call at 8 AM for a appointment time to be seen tomorrow. Print Language: Greenlandic Disposition Disposition: Home, Self Care
[2024-12-18] MEDS: Tetracaine 0.5% Ophthalmic Bottle 1 DRP RIGHT EYE (19:58)
--- OUTSIDE RECORDS SUMMARY | 2024-12-18 20:27 | XMS RPT_ITS | CCD ---
Author Organization [facility] CliniSyid Care Team Providers Care [employer] Architect Name Role Phone Unavailable Primary Care Provider UnavailYUMIKO Tejada Referring Unavailable YUMIKO ALARCON Primary Care Unavailable TREE RODRIGUEZ Attending Unavaila Keyonna Pena Unavailable Gabriel Gray Unavailable Joo MACHINE DESIGNER, MACHINE DESIGNER-C Aaron Wilson Primary Care Pr ovider Dr. Carlyle Herrera Emergency Provider [phone] Dr. Monica Oswald Admit Provider Dr. Monica Oswald Attending Provider [phone] Dr. Monica Oswald Other Provider Dr. Tri Ramos Attending Provider Dr. Tri Ramos Other Provider Tri Ramos Attending Unavailable Joo VERDIN, Aaron Wilson Primary Care Unav ailable Monica Oswald Consulting Unavailable Monica Oswald Admitting Unavailable Tri Ramos Consulting Unavailable Moinca Oswald Attending Unavailable Joo MACHINE DESIGNER, Aaron Wilson Primary Care Unav ailable Monica Oswald Consulting Unavailable Monica Oswald Admitting Unavailable Tri Ramos Attending Unavailable AARON GE Attending Unavailable AARON GE Consulting Unavailable AARON GE Primary Care Unavailable AARON GE Admitting Unavailable PROVIDER, UNKNOWN Consulting Unavailable Carlo Horowitz MD Primary Care Provider CARLO HOROWITZ Primary Care Unavailable JOO HASKINS - AARON GUILLEN Primary Care Phys ician JOO HASKINS - AARON GUILLEN Attending U navailable JOO LIMN - AARON GUILLEN Primary Care U [place] Allergies Allergy Classification Reported Allergen(s) Allergy Type Date of Onset Reaction(s) Facility Sulfonamides (antibiotic) (1 source) Sulfonamides (Antibiotic) Drug Allergy 11-26-19 Other (See Comments) [facility] (1 source) Sulfamethoxazole Drug Allergy 12-14-19 [facility] (10 sources) Sulfonamides (Antibiotic); Translations: [Sulfa (Sulfonamide Antibiotics)] Allergy to substance 12-11-19 Anaphylaxis, Intolerance [facility] (2 sources) Trimethoprim; Translations: [trimethoprim] Drug Allergy 12-14-19 Unknown (qualifier value) [facility] (1 source) Sulfamethoxazole Drug Allergy 12-14-19 [facility] (1 source) Trimethoprim Drug Allergy 12-14-19 [facility] (1 source) OTHER; Translations: [OTHER] Propensity to adverse reactions (disorder) 09-20-19 [facility] (1 source) Sulfamethizole; Translations: [sulfamethizole] Drug Allergy Unknown (qualifier value) [facility] (1 source) Sulfonamide; Translations: [sulfa drugs] Drug allergy Unknown (qualifier value) [facility] Medications Current Medications Medication Drug Class(es) Dates Sig (Normalized) Sig (Original) [id number] 200 actuat albuterol 0.09 mg/actuat metered dose inhaler (1 source) beta2-Adrenergic Agonist Start: 6 take 2 puff(s) by inhalation every four hours as needed for wheezing albuterol HFA (VENTOLIN HFA) 90 mcg/actuation inhaler Indications: Cough due to bronchospasm Inhale 2 Puffs as instructed every 4 hours as needed for Wheezing/Shortness of Breath. 1 Inhaler 0 05/29/2015 Active Albuterol Sulfate (Ventolin (Pro Air) Hfa Inhaler) 1 PUFF Aero (1 source) Start: 1 take 1 puff(s) by inhalation four times daily Albuterol Sulfate (Ventolin (Pro Air) Hfa Inhaler) 1 PUFF Aero Active 2 PUFF IH Four Times a Day December 13, 2020 8:31pm amoxicillin 875 mg oral tablet (1 source) Penicillin-class Antibacterial Start: 4 End: 5 take 1 tablet by mouth twice daily amoxicillin (AMOXIL) 875 mg tablet Take 1 tablet by mouth two times a day for 5 days. 10 tablet 04/27/2024 05/02/2024 Active benzonatate 100 mg oral capsule (1 source) Non-narcotic Antitussive Start: 8 take 1 capsule by mouth every eight hours as needed benzonatate (TESSALON PERLES) 100 mg capsule Take 1 capsule by mouth three times daily as needed for Cough. 20 capsule 05/12/2017 Active busPIRone hydrochloride 7.5 mg oral tablet (1 source) Start: 1 take 7.5 mg by mouth three times daily Buspirone Hcl Active 7.5 MG PO Three Times A Day November 18, 2020 12:00am cyclobenzaprine hydrochloride 10 mg oral tablet (1 source) Muscle Relaxant Start: 7 take 1 tablet by mouth every eight hours as needed cyclobenzaprine (FLEXERIL) 10 mg tablet Take 1 tablet by mouth three times daily as needed. 20 tablet 09/05/2016 Active dichlorphenamide 50 mg oral tablet (2 sources) End: 1 take 1 tablet by mouth twice daily after mealtime Dichlorphenamide (KEVEYIS) 50 MG TABS Take 50 mg by mouth two times per day. After Meals 0 Active fluticasone propionate 0.05 mg/actuat metered dose nasal spray (1 source) Corticosteroid Start: 6 take 2 spray(s) nasal route once daily fluticasone (FLONASE) 50 mcg/actuation nasal spray Use 2 Sprays in each nostril once daily. 16 g 4 03/29/2016 Active hydrOXYzine hydrochloride 25 mg oral tablet (1 source) Antihistamine take 1 tablet by mouth three times daily as needed for anxiety hydrOXYzine (ATARAX) 25 MG tablet Take 25 mg by mouth 3 times daily as needed for Anxiety. 0 Active levoFLOXacin 750 mg oral tablet (1 source) Quinolone Antimicrobial Start: 1 take 750 mg by mouth once daily Levofloxacin Active 750 MG PO Daily 6 December 13, 2020 12:00am meclizine hydrochloride 25 mg oral tablet (1 source) Antiemetic Start: 8 take 1 tablet by mouth every eight hours as needed meclizine (ANTIVERT) 25 mg tab Take 1 tablet by mouth three times daily as needed (dizziness). 12 tablet 05/12/2017 Active multivitamins(CHEWABL E MULTI VITAMIN TAB) (1 source) Start: 9 multivitamins(CHEWAB LE MULTI VITAMIN TAB) Take one(1) tablet daily. 0 09/19/2008 Active potassium chloride 1.33 meq/ml oral solution (8 sources) Start: 5 End: 5 take 1 dose by mouth twice daily at mealtime potassium chloride 20 mEq/15 mL (10%) ORAL liquid Dose : 20 mEq = 15 mL, Oral, BID, Take with food, # 900 mL, 5 Refill(s), Pharmacy: [email or web address] Hypokalemic periodic paralysis, 180, cm, 09/03/24 9:28:00 EDT, Height, kg, 09/03/24 9:28:00 EDT, Dosing Weight Start Date: 09/03/24 Stop Date: 03/02/25 Status: Ordered Quantity: 900.0 Unit: mL Repeat number: 6 Indications: Periodic paralysis; Start: 09-03-2022 take 40 mEq by mouth once love y Potassium Chloride Active 40 MEQ PO DAILY 473 September 03, 2022 12:00am Start: 09-02-2022 End: 09-03-2022 take 20 mEq by mouth twice daily Potassium Chloride Discontinued 20 MEQ PO TWICE A DAY September 02, 2022 12:00am September 03, 2022 1:14pm Start: 06-18-2018 End: 09-02-2022 take 2 tablets by mouth twice daily Potassium Chloride Discontinued 2 TABLET PO TWICE A DAY June 18, 2018 1:00am September 02, 2022 9:42pm Start: 03-09-2015 End: 08-17-2017 Potassium Chloride Discontin ued 10 MEQ PO NEEDED March 09, 2015 1:00am August 17, 2017 10:30am pseudoephedrine hydrochloride 30 mg oral tablet (1 source) alpha-Adrenergic Agonist Start: 05-12-2017 take 2 tablets by mouth every six hours as needed pseudoephedrine (SUDAFED) 30 mg tablet Take 2 tablets by mouth every 6 hours as needed. 20 tablet 05/12/2017 Active sertraline 25 mg oral tablet (3 sources) Serotonin Reuptake Inhibitor Start: 07-30-2016 take 25 mg by mouth once daily Sertraline Hcl Active 25 MG PO Daily December 13, 2020 12:00am Completed/Discontinued Medications Medication Drug Class(es) Dates Sig (Normalized) Sig (Original) LORazepam 1 mg oral tablet (2 sources) Benzodiazepine Start: 11-25-2020 End: 11-25-2020 LORazepam (ATIVAN) tablet 1 mg Start: 11-18-2020 take 1 tablet by marci th once daily in the evening Lorazepam (Ativan) 1 MG Tablet Active 1 MG PO Every Evening November 18, 2020 12:00am Problems Problem Classification Problem Date Documented Da te Episodic/Chronic Anxiety disorders (2 sources) Anxiety; Translations: [Anxiety disorder, unspecified] Chronic Cardiac dysrhythmias (1 source) Palpitations; Translations: [Palpitations] 11-17-2020 Episodic Disorders of teeth and jaw (1 source) Infection of tooth; Translations: [Periapical abscess without sinus] 04-27-2024 Episodic Fluid and electrolyte disorders (13 sources) Hypokalemia; Translations: [Hypokalemia] Onset: 09-05-2022 11-18-2020 Episodic Other lower respiratory disease (1 source) Apnea 08-28-2023 Episodic Other nervous system disorders (5 sources) Familial hypokalemic periodic paralysis; 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 Other screening for suspected conditions (not mental disorders or infectious disease) (5 sources) Serum creatinine raised; Translations: [Other specified abnormal findings of blood chemistry] Onset: 09-05-2024 11-17-2020 Episodic Unclassified (1 source) Non-smoker 08-28-2023 Unclassified (3 sources) Patient encounter status 06-28-2022 Unclassified (1 source) Vaccination needed 08-28-2023 Viral infection (1 source) COVID-19; Translations: [Pneumonia due to COVID-19 virus] 12-13-2020 Episodic Results Test Name Value Interpretation Reference Range Facility .Auto Diffon 09-05-2024 Basophil, Absolute 0.0 10 3/mcL Normal 0.0-0.3 [facility] Comment on above: Performed By: #### C MP, A1C, CBC, LIPID, GFR, ANEU, ADIFF #### [address] [address] Basophils/100 WBC (Bld) 0.5 % Normal 0.0-2.5 [facility] Comment on above: Performed By: #### C MP, A1C, CBC, LIPID, GFR, ANEU, ADIFF #### [address] [address] Eosinophil, Absolute 0.2 10 3/mcL Normal 0.0-0.7 [facility] Comment on above: Performed By: #### C MP, A1C, CBC, LIPID, GFR, ANEU, ADIFF #### [address] [address] Eosinophils/100 WBC (Bld) 2.6 % Normal 0.0-6.0 [facility] Comment on above: Performed By: #### C MP, A1C, CBC, LIPID, GFR, ANEU, ADIFF #### [address] [address] Lymphocyte, Absolute 2.6 10 3/mcL Normal 0.9-4.3 [facility] Comment on above: Performed By: #### C MP, A1C, CBC, LIPID, GFR, ANEU, ADIFF #### [address] [address] Lymphocytes/100 WBC (Bld) 33.6 % Normal 20.0-40.0 [facility] Comment on above: Performed By: #### C MP, A1C, CBC, LIPID, GFR, ANEU, ADIFF #### [address] [address] Monocyte, Absolute 0.8 10 3/mcL Normal 0.1-1.4 [facility] Comment on above: Performed By: #### C MP, A1C, CBC, LIPID, GFR, ANEU, ADIFF #### [address] [address] Monocytes/100 WBC (Bld) 9.7 % Normal 2.0-13.0 [facility] Comment on above: Performed By: #### C MP, A1C, CBC, LIPID, GFR, ANEU, ADIFF #### [place] [address] [place], [place] [address] Neutrophils/100 WBC (Bld) 53.6 % Normal 50.0-75.0 [facility] Comment on above: Performed By: #### C MP, A1C, CBC, LIPID, GFR, ANEU, ADIFF #### [address] [address] .GFRon 09-05-2024 Estimated Glomerular Filtration Rate 81 ml/min/1.73sqm Normal [facility] Comment on above: Result Comment: Stages of Chronic Kidney Disease (CKD) Stage Description eGFR(ml/min/1.73 sq.m.) CKD 1 Normal kidney function or >=90 normal kindney function with possible kidney damage (ex. Proteinuria) CKD 2 Kidney damage with mild loss 60-89 of kidney function CKD 3a Mild to moderate loss of kidney 45-59 function CKD 3b Moderate to severe loss of 30-44 of kindey function CKD 4 Severe loss of kidney function 15-29 CKD 5 Kidney failure <15 Note: (go live 2024) the eGFR calculation was updated to the 2020 CKD-EPI creatinine equation without a race factor to calculate the eGFR results. Performed By: #### C MP, A1C, CBC, LIPID, GFR, ANEU, ADIFF #### [address] [place], [place] [address] .NEUABSon 09-05-2024 Neutrophil, Absolute 4.2 10 3/mcL Normal 2.3-8.1 [facility] Comment on above: Performed By: #### C MP, A1C, CBC, LIPID, GFR, ANEU, ADIFF #### [address] [place], [place] [address] A1Con 09-05-2024 Glucose [Mass/Vol] 105 mg/dL Normal [facility] Comment on above: Result Comment: Sunshine mated Average Glucose calculated by equation ((28.7xA1C)-46.7) Estimated average glucose (eAG) is a calculated value from Hemoglobin A1C and is customer response representative of the average blood glucose level in the last 2-3 month period. Normal range: less than 114 mg/dL Performed By: #### C MP, A1C, CBC, LIPID, GFR, ANEU, ADIFF #### [place] [id number] HbA1c (Bld) [Mass fraction] 5.3 % Normal 4.3-6.4 [facility] Comment on above: Performed By: #### C MP, A1C, CBC, LIPID, GFR, ANEU, ADIFF #### [place] [id number] CBCon 09-05-2024 Erythrocyte distribution width (RBC) [Ratio] 12.2 % Normal 11.5-15.5 [facility] Comment on above: Performed By: #### C MP, A1C, CBC, LIPID, GFR, ANEU, ADIFF #### [place] [address] Hematocrit (Bld) [Volume fraction] 45.6 % Normal 40.0-52.0 [facility] Comment on above: Performed By: #### C MP, A1C, CBC, LIPID, GFR, ANEU, ADIFF #### [place] [id number] Hgb 15.9 G/dL Normal 13.0-17.5 [facility] Comment on above: Performed By: #### C MP, A1C, CBC, LIPID, GFR, ANEU, ADIFF #### [place] [id number] MCH (RBC) [Entitic mass] 30.1 pg Normal 27.0-33.0 [facility] Comment on above: Performed By: #### C MP, A1C, CBC, LIPID, GFR, ANEU, ADIFF #### [place] [address] MCHC 34.8 G/dL Normal 32.0-36.0 [facility] Comment on above: Performed By: #### C MP, A1C, CBC, LIPID, GFR, ANEU, ADIFF #### [address] [address] MCV (RBC) [Entitic vol] 86.6 fL Normal 81.0-100.0 [facility] Comment on above: Performed By: #### C MP, A1C, CBC, LIPID, GFR, ANEU, ADIFF #### [address] [address] Platelet 238 10 3/mcL Normal 150-450 [facility] Comment on above: Performed By: #### C MP, A1C, CBC, LIPID, GFR, ANEU, ADIFF #### [address] [address] Platelet mean volume (Bld) [Entitic vol] 8.6 fL Normal 6.4-10.5 [facility] Comment on above: Performed By: #### C MP, A1C, CBC, LIPID, GFR, ANEU, ADIFF #### [address] [address] RBC 5.27 10 6/mcL Normal 4.50-6.00 [facility] Comment on above: Performed By: #### C MP, A1C, CBC, LIPID, GFR, ANEU, ADIFF #### [address] [address] WBC 7.9 10 3/mcL Normal 4.5-10.8 [facility] Comment on above: Performed By: #### C MP, A1C, CBC, LIPID, GFR, ANEU, ADIFF #### [address] [address] CMPon 09-05-2024 Albumin Level 4.0 G/dL Normal 3.5-5.0 [facility] Comment on above: Performed By: #### C MP, A1C, CBC, LIPID, GFR, ANEU, ADIFF #### [address] [address] Albumin/Globulin [Mass ratio] 1.3 {ratio} Normal 1.1-2.5 [facility] Comment on above: Performed By: #### C MP, A1C, CBC, LIPID, GFR, ANEU, ADIFF #### [address] [address] ALP [Catalytic activity/Vol] 54 U/L Normal 40-135 [facility] Comment on above: Performed By: #### C MP, A1C, CBC, LIPID, GFR, ANEU, ADIFF #### [address] [address] ALT [Catalytic activity/Vol] 30 U/L Normal 16-63 [facility] Comment on above: Performed By: #### C MP, A1C, CBC, LIPID, GFR, ANEU, ADIFF #### [address] [address] AST [Catalytic activity/Vol] 25 U/L Normal 10-40 [facility] Comment on above: Performed By: #### C MP, A1C, CBC, LIPID, GFR, ANEU, ADIFF #### [address] [address] Bili Total 0.6 mg/dL Normal 0.2-1.0 [facility] Comment on above: Result Comment: Use of this assay is not recommended for patients undergoing treatment with eltrombopag due to the potential for falsely elevated results. Performed By: #### C MP, A1C, CBC, LIPID, GFR, ANEU, ADIFF #### [address] [address] BUN/Creatinine Ratio 6 ratio Low 7-27 [facility] Comment on above: Performed By: #### C MP, A1C, CBC, LIPID, GFR, ANEU, ADIFF #### [address] [address] Calcium [Mass/Vol] 9.4 mg/dL Normal 8.4-10.2 [facility] Comment on above: Performed By: #### C MP, A1C, CBC, LIPID, GFR, ANEU, ADIFF #### [address] [address] Chloride [Moles/Vol] 103 mmol/L Normal 98-107 [facility] Comment on above: Performed By: #### C MP, A1C, CBC, LIPID, GFR, ANEU, ADIFF #### [address] [address] CO2 [Moles/Vol] 32 mmol/L High 22-29 [facility] Comment on above: Performed By: #### C MP, A1C, CBC, LIPID, GFR, ANEU, ADIFF #### [address] [address] Creatinine [Mass/Vol] 1.26 mg/dL High 0.67-1.17 [facility] Comment on above: Performed By: #### C MP, A1C, CBC, LIPID, GFR, ANEU, ADIFF #### [address] [address] Electrolyte Balance 6.0 mEq/L Normal 4.0-15.0 [facility] Comment on above: Performed By: #### C MP, A1C, CBC, LIPID, GFR, ANEU, ADIFF #### [address] [address] Globulin 3.0 G/dL Normal 2.7-4.4 [facility] Comment on above: Performed By: #### C MP, A1C, CBC, LIPID, GFR, ANEU, ADIFF #### [address] [address] Glucose [Mass/Vol] 92 mg/dL Normal 70-105 [facility] Comment on above: Performed By: #### C MP, A1C, CBC, LIPID, GFR, ANEU, ADIFF #### [address] [address] Potassium [Moles/Vol] 3.5 mmol/L Normal 3.5-5.1 [facility] Comment on above: Performed By: #### C MP, A1C, CBC, LIPID, GFR, ANEU, ADIFF #### [address] [address] Sodium [Moles/Vol] 141 mmol/L Normal 136-145 [facility] Comment on above: Performed By: #### C MP, A1C, CBC, LIPID, GFR, ANEU, ADIFF #### [address] [place], [place] [address] Total Protein 7.0 G/dL Normal 6.4-8.2 [facility] Comment on above: Performed By: #### C MP, A1C, CBC, LIPID, GFR, ANEU, ADIFF #### [address] [place], [place] [address] Urea nitrogen [Mass/Vol] 8 mg/dL Normal 7-18 [facility] Comment on above: Performed By: #### C MP, A1C, CBC, LIPID, GFR, ANEU, ADIFF #### [address] [place] [address] [place], [place] [address] LABORATORYOrdered By: SYSTEM SYSTEM on 09-05-2024 Albumin BCP dye [Mass/Vol] 4.0 G/dL Normal 3.5 - 5.0 G/dL AO ADM SS Albumin/Globulin [Mass ratio] 1.3 {ratio} Normal 1.1 - 2.5 ratio AO ADM SS ALP [Catalytic activity/Vol] 54 U/L Normal 40 - 135 U/L AO ADM SS ALT With P-5'-P [Catalytic activity/Vol] 30 U/L Normal 16 - 63 U/L AO ADM SS AST With P-5'-P [Catalytic activity/Vol] 25 U/L Normal 10 - 40 U/L AO ADM SS Basophils (Bld) [#/Vol] 0.0 103/mcL Normal 0.0 - 0.3 10^3/mcL AO Workflow SS Basophils/100 WBC (Bld) 0.5 % Normal 0.0 - 2.5 % AO Workflow SS Bilirubin [Mass/Vol] 0.6 mg/dL Normal 0.2 - 1 .0 mg/dL AO ADM SS Comment on above: Interpretive Data: U se of this assay is not recommended for patients undergoing treatment with eltrombopag due to the potential for falsely elevated results. Calcium [Mass/Vol] 9.4 mg/dL Normal 8.4 - 10. 2 mg/dL AO ADM SS Chloride [Moles/Vol] 103 mmol/L Normal 98 - 10 7 mmol/L AO ADM SS CO2 [Moles/Vol] 32 mmol/L High 22 - 29 mmol/L AO ADM SS Creatinine [Mass/Vol] 1.26 mg/dL High 0.67 - 1.17 mg/dL AO ADM SS Electrolyte Balance 6.0 mEq/L Normal 4.0 - 15 .0 mEq/L AO ADM SS Eosinophil, Absolute 0.2 103/mcL Normal 0.0 - 0 .7 10^3/mcL AO Workflow SS Eosinophils/100 WBC (Bld) 2.6 % Normal 0.0 - 6.0 % AO Workflow SS Erythrocyte distribution width (RBC) [Ratio] 12.2 % Normal 11.5 - 15.5 % AO Workflow SS Estimated Glomerular Filtration Rate 81 ml/min/1.73sqm Invalid Interpretation Code AO Chemistry S Comment on above: Interpretive Data: Stages of Chronic Kidney Disease (CKD) Stage Description eGFR(ml/min/1.73 sq.m.) CKD 1 Normal kidney function or >=90 normal kindney function with possible kidney damage (ex. Proteinuria) CKD 2 Kidney damage with mild loss 60-89 of kidney function CKD 3a Mild to moderate loss of kidney 45-59 function CKD 3b Moderate to severe loss of 30-44 of kindey function CKD 4 Severe loss of kidney function 15-29 CKD 5 Kidney failure <15 Note: (go live 2024) the eGFR calculation was updated to the 2020 CKD-EPI creatinine equation without a race factor to calculate the eGFR results. Globulin 3.0 G/dL Normal 2.7 - 4.4 G/dL AO ADM SS Glucose [Mass/Vol] 105 mg/dL Invalid Interpretation Code AO Chemistry S Comment on above: Interpretive Data: E stimated average glucose (eAG) is a calculated value from Hemoglobin A1C and is customer response representative of the average blood glucose level in the last 2-3 month period. Normal range: less than 114 mg/dL Glucose [Mass/Vol] 92 mg/dL Normal 70 - 105 mg/dL AO ADM SS HbA1c (Bld) [Mass fraction] 5.3 % Normal 4.3 - 6.4 % AO ADM SS Hematocrit (Bld) [Volume fraction] 45.6 % Normal 40.0 - 52.0 % AO Workflow SS Hemoglobin (Bld) [Mass/Vol] 15.9 G/dL Normal 13.0 - 17.5 G/dL AO Workflow SS Lymphocytes (Bld) [#/Vol] 2.6 103/mcL Normal 0.9 - 4.3 10^3/mcL AO Workflow SS Lymphocytes/100 WBC (Bld) 33.6 % Normal 20.0 - 40.0 % AO Workflow SS MCH (RBC) [Entitic mass] 30.1 pg Normal 27. 0 - 33.0 pg AO Workflow SS MCHC 34.8 G/dL Normal 32.0 - 36.0 G/dL AO Workflow SS MCV (RBC) [Entitic vol] 86.6 fL Normal 81.0 - 100.0 fL AO Workflow SS Monocytes (Bld) [#/Vol] 0.8 103/mcL Normal 0.1 - 1.4 10^3/mcL AO Workflow SS Monocytes/100 WBC (Bld) 9.7 % Normal 2.0 - 13.0 % AO Workflow SS Neutrophils (Bld) [#/Vol] 4.2 103/mcL Normal 2.3 - 8.1 10^3/mcL AO Workflow SS Neutrophils/100 WBC (Bld) 53.6 % Normal 50.0 - 75.0 % AO Workflow SS Platelet mean volume (Bld) [Entitic vol] 8.6 fL Normal 6.4 - 10.5 fL AO Workflow SS Platelets (Bld) [#/Vol] 238 103/mcL Normal 150 - 450 10^3/mcL AO Workflow SS Potassium [Moles/Vol] 3.5 mmol/L Normal 3.5 - 5.1 mmol/L AO ADM SS Protein [Mass/Vol] 7.0 G/dL Normal 6.4 - 8.2 G/dL AO ADM SS RBC (Bld) [#/Vol] 5.27 106/mcL Normal 4.50 - 6.0 0 10^6/mcL AO Workflow SS Sodium [Moles/Vol] 141 mmol/L Normal 136 - 145 mmol/L AO ADM SS Urea nitrogen [Mass/Vol] 8 mg/dL Normal 7 - 18 mg/d L AO ADM SS Urea nitrogen/Creatinine [Mass ratio] 6 ratio Low 7 - 27 ratio AO ADM SS WBC (Bld) [#/Vol] 7.9 103/mcL Normal 4.5 - 10.8 10^3/mcL AO Workflow SS LABORATORYOrdered By: Gregoria Duncan on 09-05-2024 Cholesterol [Mass/Vol] 143 mg/dL Normal 0 - 2 00 mg/dL AO ADM SS Comment on above: Interpretive Data: C holesterol Reference Interval: Less than 200 Desirable 200-239 Borderline high risk 240 and above High risk Cholesterol in HDL [Mass/Vol] 36 mg/dL Low 40 - 60 mg/dL AO ADM SS Cholesterol in LDL [Mass/Vol] 63 mg/dL Normal 0 - 130 mg/dL AO ADM SS Triglyceride [Mass/Vol] 218 mg/dL High 0 - 150 mg/dL AO ADM SS Comment on above: Interpretive Data: T riglyceride Reference Interval: Less than 150 Normal 150-199 Borderline high risk 200-499 High risk 500 or higher Very high risk LIPIDon 09-05-2024 Cholesterol [Mass/Vol] 143 mg/dL Normal 0-200 [facility] Comment on above: Result Comment: Chol esterol Reference Interval: Less than 200 Desirable 200-239 Borderline high risk 240 and above High risk Performed By: #### C MP, A1C, CBC, LIPID, GFR, ANEU, ADIFF #### [address] [address] Cholesterol in HDL [Mass/Vol] 36 mg/dL Low 40-60 [facility] Comment on above: Performed By: #### C MP, A1C, CBC, LIPID, GFR, ANEU, ADIFF #### [address] [address] Cholesterol in LDL [Mass/Vol] 63 mg/dL Normal 0-130 [facility] Comment on above: Performed By: #### C MP, A1C, CBC, LIPID, GFR, ANEU, ADIFF #### [address] [address] Triglyceride [Mass/Vol] 218 mg/dL High 0-150 [facility] Comment on above: Result Comment: Trig lyceride Reference Interval: Less than 150 Normal 150-199 Borderline high risk 200-499 High risk 500 or higher Very high risk Performed By: #### C MP, A1C, CBC, LIPID, GFR, ANEU, ADIFF #### [address] [address] CNOVon 04-27-2024 CNOV Office Visit ([facility]) ---- DARIUSZ MONAHAN ([id number]) 1995 M Date Time Provider Department 04/27/24 12:00 PM BEBETO QUEZADA [facility] During your visit today, we recorded the following information about you: Temperature Pulse Respiration Blood pressure 98.3 degrees 62/minute 16/minute 151/87 Weight 113.2 kg Bebeto Quezada PA 04/27/2024 12:43 PM Signed This note was created using [employer]. Subjective Dariusz Monahan is a 28 year old male. HPI 28-year-old male presents for left sided dental pain. Patient states that he has a broken left lower tooth which just started hurting about 2 days ago. He notes some swelling around the area. No drainage. No fevers. States he just does not feel well. He does not have a dentist. No difficulty breathing or swallowing. Has taken Tylenol Motrin with minimal improvement. No other complaint. 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, legs cramps and paralysis PMH - PAST MEDICAL HISTORY OF VSD(2 small), closed 10/1997 PMH - PAST MEDICAL HISTORY OF heart murmur - resolved @ 2months of age PMH - PAST MEDICAL HISTORY OF HSP - at 5yrs of age approximately PMH - PAST MEDICAL HISTORY OF 01/02/03 Color Vision - Normal PAST SURGICAL HISTORY Procedure Laterality Date ADENOIDECTOMY PRIMARY Adenoidectomy MYRINGOTOMY ASPIRAND/EUSTACHIAN TUBE NFLTJ ANES 2002 Myringotomy/tubes MYRINGOTOMY ASPIRAND/EUSTACHIAN TUBE NFLTJ ANES left 11/03 Myringotomy/tubes ALLERGIES Sulfa Drugs [Sulfa (Sulfonamide Antibiotics)] MEDICATIONS amoxicillin (AMOXIL) 875 mg tablet Take 1 tablet by mouth two times a day for 5 days. meclizine (ANTIVERT) 25 mg tab Take 1 tablet by mouth three times daily as needed (dizziness). (Patient not taking: Reported on 06/18/2021 ) benzonatate (TESSALON PERLES) 100 mg capsule Take 1 capsule by mouth three times daily as needed for Cough. (Patient not taking: Reported on 06/18/2021 ) pseudoephedrine (SUDAFED) 30 mg tablet Take 2 tablets by mouth every 6 hours as needed. (Patient not taking: Reported on 06/18/2021 ) cyclobenzaprine (FLEXERIL) 10 mg tablet Take 1 tablet by mouth three times daily as needed. sertraline (ZOLOFT) 25 mg tablet Take 1 tablet by mouth once daily. fluticasone (FLONASE) 50 mcg/actuation nasal spray Use 2 Sprays in each nostril once daily. (Patient not taking: Reported on 06/18/2021 ) albuterol HFA (VENTOLIN HFA) 90 mcg/actuation inhaler Inhale 2 Puffs as instructed every 4 hours as needed for Wheezing/Shortness of Breath. multivitamins(CHEWA BLE MULTI VITAMIN TAB) Take one(1) tablet daily. (Patient not taking: ) FAMILY HISTORY Problem Relation Age of Onset Colon Cancer Maternal Grandmother Cancer Maternal Grandmother paternal side Heart Maternal Grandmother maternal side Diabetes Maternal Grandmother maternal side Social History Tobacco Use Smoking status: Never Passive exposure: Yes Smokeless tobacco: Never Tobacco comments: Mom smokes Review of Systems Constitutional: Negative for chills and fever. HENT: Positive for dental problem. Negative for congestion and sore throat. Respiratory: Negative for cough and shortness of breath. Gastrointestinal: Negative for diarrhea and vomiting. Objective BP 151/87 Pulse 62 Temp 36.8 ?C (98.3 ?F) (Right Tympanic) Resp 16 Wt 113.2 kg (249 lb 9 oz) SpO2 99% Physical Exam Vitals and nursing note reviewed. Constitutional: General: He is not in acute distress. Appearance: Normal appearance. He is not toxic-appearing. HENT: Right Ear: Tympanic membrane and ear canal normal. Left Ear: Tympanic membrane and ear canal normal. Nose: Nose normal. Mouth/Throat: Mouth: Mucous membranes are moist. Dentition: Dental tenderness, gingival swelling and dental caries present. Pharynx: Uvula midline. Comments: Patient has tenderness over tooth #18. Broken tooth #18. Gingival swelling and erythema noted around this tooth. He does have some purulent drainage along the gumline, but no abscess felt. No tongue or floor of mouth swelling. Handling secretions. Uvula midline. Eyes: Conjunctiva/sclera: Conjunctivae normal. Cardiovascular: Rate and Rhythm: Normal rate and regular rhythm. Pulmonary: Effort: Pulmonary effort is normal. Breath sounds: Normal breath sounds. Skin: General: Skin is warm and dry. Neurological: Mental Status: He is alert. Assessment and Plan ASSESSMENT/PLAN: 1. Dental infection - ICD9: 522.4, ICD10: K04.7 -Rx amoxicillin -Schedule follow-up with dentistry this week -Tylenol/Motrin for pain Diagnosis and treatment plan were discussed and questions were answered to the patient's satisfaction. Pt acknowledged understanding of concepts and follow up plan. Specific signs and symptoms that would indicate the need for higher level (more content not included)... Normal [facility] CMP with eGFRon 08-29-2023 AGE 27 years Normal [facility] Comment on above: Performed By: #### 2 [id number] #### [address] [address] Albumin [Mass/Vol] 4.2 g/dL Normal 3.4 - 5.0 [facility] Comment on above: Performed By: #### 2 25572 #### [address] [address] Albumin/Globulin [Mass ratio] 1.4 {ratio} Normal 0.9 - 1.6 [facility] Comment on above: Performed By: #### 2 87441 #### [address] [address] ALK PHOS 56 U/L Normal 46 - 116 [facility] Comment on above: Performed By: #### 2 08901 #### [address] [address] ALT [Catalytic activity/Vol] 22 U/L Normal 16 - 63 [facility] Comment on above: Performed By: #### 2 40513 #### [address] [address] Anion gap [Moles/Vol] 12 mmol/L Normal 10 - 20 [facility] Comment on above: Performed By: #### 2 17989 #### [facility],[address] [place] [address] AST [Catalytic activity/Vol] 21 U/L Normal 15 - 37 [facility] Comment on above: Performed By: #### 2 89464 #### [facility],[address] [place] [address] B/C RATIO 9 ratio Normal 0 - 30 [facility] Comment on above: Performed By: #### 2 38274 #### [facility],[address] [place] [address] Bilirubin [Mass/Vol] 0.6 mg/dL Normal 0.2 - 1.0 [facility] Comment on above: Performed By: #### 2 77481 #### [facility],[address] [place] [address] Calcium [Mass/Vol] 9.4 mg/dL Normal 8.5 - 10.1 [facility] Comment on above: Performed By: #### 2 79095 #### [facility],[address] [place] [address] Chloride [Moles/Vol] 101 mmol/L Normal 98 - 107 [facility] Comment on above: Performed By: #### 2 43136 #### [facility],[address] [place] [address] CMP with eGFR Normal [facility] Comment on above: Result Comment: COMP REHENSIVE METABOLIC PANEL Performed By: #### 2 19615 #### [facility],[address] [place] [address] CO2 [Moles/Vol] 30.7 mmol/L Normal 21.0 - 32.0 [facility] Comment on above: Performed By: #### 2 07066 #### [facility],[address] [place] [address] Creatinine [Mass/Vol] 1.28 mg/dL Normal 0.70 - 1.30 [facility] Comment on above: Performed By: #### 2 46922 #### [facility],[address] [place] [address] GFR/1.73 sq M.predicted among non-blacks MDRD (S/P/Bld) [Vol rate/Area] mL/min/{1.73_m2} Normal 60 - 999 [facility] Comment on above: Performed By: #### 2 00104 #### [facility],[address] [place] [address] Result Comment: ACCO RDING TO THE NATIONAL KIDNEY DISEASE EDUCATION PROGRAM(NKDE), A NORMAL eGFR IS A VALUE GREATER THAN OR EQUAL TO 60 ML/MIN/1.73 SQ METERS. CHRONIC KIDNEY DISEASE: <60mL/MIN/1.73 SQ METERS KIDNEY FAILURE: <15mL/MIN/1.73 SQ METERS THIS TEST SHOULD ONLY BE USED FOR PATIENTS 18 YEARS OF AGE AND OLDER. Globulin (S) [Mass/Vol] 3.0 g/dL Normal 1.5 - 3.8 [facility] Comment on above: Performed By: #### 2 78029 #### [facility],[address] [place] [address] Glucose [Mass/Vol] 89 mg/dL Normal 74 - 106 [facility] Comment on above: Performed By: #### 2 58422 #### [facility],[address] [place] [address] Potassium [Moles/Vol] 3.7 mmol/L Normal 3.5 - 5.1 [facility] Comment on above: Performed By: #### 2 53649 #### [facility],[address] [place], [place] [id number] Protein [Mass/Vol] 7.2 g/dL Normal 6.4 - 8.2 [facility] Comment on above: Performed By: #### 2 95608 #### [facility],[address] [place] [address] Sodium [Moles/Vol] 140 mmol/L Normal 136 - 145 [facility] Comment on above: Performed By: #### 2 99792 #### [facility],[address] [place] [address] Urea nitrogen [Mass/Vol] 11 mg/dL Normal 7 - 18 [facility] Comment on above: Performed By: #### 2 81944 #### [facility],[address] [place] [address] HEMOGLOBIN A1C (POM)on 08-28 Glucose [Mass/Vol] 108.3 mg/dL High 0.0 - 0.0 [facility] Comment on above: Result Comment: BLDo HEMOGLOBIN A1C REFERENCE RANGESBLDo Suggested Diagnosis HbA1c(%) HbA1C (mmol/mol Diabetic >/=6.5 >/=48 Prediabetes 5.7 - 6.4 39 - 47 Normal <5.7 <39 Performed By: #### 2 04212 #### [facility],[address] [place] [address] HbA1c (Bld) [Mass fraction] 5.4 % Normal 0.0 - 6.5 [facility] Comment on above: Performed By: #### 2 45309 #### [facility],[address] [place] [address] LIPID PROFILEon 08-29-2023 Cholesterol [Mass/Vol] 171 mg/dL Normal 0 - 240 [facility] Comment on above: Performed By: #### 2 18720 #### [facility],[address] [place] [address] Cholesterol in HDL [Mass/Vol] 38 mg/dL Low 40 - 60 [facility] Comment on above: Performed By: #### 2 75910 #### [facility],[address] [place] [address] Cholesterol in LDL [Mass/Vol] 90 mg/dL Normal 0 - 129 [facility] Comment on above: Performed By: #### 2 97208 #### [facility],[address] [place] [address] Cholesterol.total/Choles terol in HDL [Mass ratio] 4.5 {ratio} Normal 0.0 - 5.0 [facility] Comment on above: Performed By: #### 2 14731 #### [facility],[address] [place] [address] Lipid 1996 panel Normal [facility] Comment on above: Result Comment: LIPI D PROFILE Performed By: #### 2 41929 #### [facility],[address] [place] [address] Triglyceride [Mass/Vol] 213 mg/dL High 0 - 150 [facility] Comment on above: Performed By: #### 2 39662 #### [facility],[address] [place], [place] [id number] MAGNESIUMon 08-29-2023 Magnesium [Mass/Vol] 2.2 mg/dL Normal 1.8 - 2.4 [facility] Comment on above: Performed By: #### 2 60340 #### [facility],[address] [place] [address] TSHon 08-29-2023 TSH Qn 2.03 m[IU]/L Normal 0.35 - 3.74 [facility] Comment on above: Performed By: #### 2 19265 #### [facility],[address] [place], [place] [id number] Absolute lymphocyte countOrd ered By: Dr. Oswald on 09-03-2022 Lymphocytes Auto (Unsp spec) [#/Vol] 2.20 10*3/uL 0.83-4.51 [facility] Basic Metabolic Profile (BMP )on 09-03-2022 BUN/CRE 10.6 RATIO Normal 10-20 [facility] Comment on above: Order Comment: to be done after IV potassium is done infusing Performed By: #### L 500.2500 #### [facility] [address] [place], [address] CA,Total 8.2 mg/dL Low 8.5-10.1 [facility] Comment on above: Order Comment: to be done after IV potassium is done infusing Performed By: #### L 500.2500 #### [facility] [address] [place], [address] Chloride [Moles/Vol] 111 mmol/L High 98-107 [facility] Comment on above: Order Comment: to be done after IV potassium is done infusing Performed By: #### L 500.2500 #### [facility] [address] [place], [address] CO2 [Moles/Vol] 26.0 mmol/L Normal 21.0-32.0 [facility] Comment on above: Order Comment: to be done after IV potassium is done infusing Performed By: #### L 500.2500 #### [facility] [address] [place], [address] Creatinine [Mass/Vol] 0.94 mg/dL Normal 0.70-1.30 [facility] Comment on above: Order Comment: to be done after IV potassium is done infusing Result Comment: The validity of the calculated GFR GFRAA in patients over 70 years has not been determined. Clinical correlation is essential. Performed By: #### L 500.2500 #### [facility] [address] [place], [address] ECRCL 129.06 ml/min Normal [facility] Comment on above: Order Comment: to be done after IV potassium is done infusing Performed By: #### L 500.2500 #### [facility] [address] [place], [address] EST GFR - AA 125 mL/min Normal >60 [facility] Comment on above: Order Comment: to be done after IV potassium is done infusing Result Comment: Afri can [place] GFR Calc Performed By: #### L 500.2500 #### [facility] [address] [place], [address] GAP 4 Low 5-15 [facility] Comment on above: Order Comment: to be done after IV potassium is done infusing Performed By: #### L 500.2500 #### [facility] [address] [place], [address] GFR/1.73 sq M.predicted among non-blacks MDRD (S/P/Bld) [Vol rate/Area] 103 mL/min/{1.73_m2} Normal >60 [facility] Comment on above: Order Comment: to be done after IV potassium is done infusing Result Comment: Non- GFR Calc Performed By: #### L 500.2500 #### [facility] [address] [place], [address] Glucose [Mass/Vol] 107 mg/dL High 74-106 [facility] Comment on above: Order Comment: to be done after IV potassium is done infusing Result Comment: Fast ing Glucose result from 100 to 125 mg/dL suggests IMPAIRED HOMEOSTASIS per A.D.A. criteria. Performed By: #### L 500.2500 #### [facility] [address] [place], [address] Potassium [Moles/Vol] 4.8 mmol/L Normal 3.5-5.1 [facility] Comment on above: Order Comment: to be done after IV potassium is done infusing Result Comment: Slig ht Hemolysis, Result may be falsely increased. Performed By: #### L 500.2500 #### [facility] [address] [place], [address] Sodium [Moles/Vol] 141 mmol/L Normal 136-145 [facility] Comment on above: Order Comment: to be done after IV potassium is done infusing Performed By: #### L 500.2500 #### [facility] [address] [place], [address] Urea nitrogen [Mass/Vol] 10 mg/dL Normal 7-18 [facility] Comment on above: Order Comment: to be done after IV potassium is done infusing Performed By: #### L 500.2500 #### [facility] [address] [place], [address] BUN/CRE 12.1 RATIO Normal 10-20 [facility] Comment on above: Performed By: #### L 500.2500 #### [facility] [address] [place], [address] CA,Total 8.3 mg/dL Low 8.5-10.1 [facility] Comment on above: Performed By: #### L 500.2500 #### [facility] [address] [place], [address] Chloride [Moles/Vol] 110 mmol/L High 98-107 [facility] Comment on above: Performed By: #### L 500.2500 #### [facility] [address] [place], [address] CO2 [Moles/Vol] 23.0 mmol/L Normal 21.0-32.0 [facility] Comment on above: Performed By: #### L 500.2500 #### [facility] [address] [place], [address] Creatinine [Mass/Vol] 1.16 mg/dL Normal 0.70-1.30 [facility] Comment on above: Result Comment: The validity of the calculated GFR GFRAA in patients over 70 years has not been determined. Clinical correlation is essential. Performed By: #### L 500.2500 #### [facility] [address] [place], [address] ECRCL 104.58 ml/min Normal [facility] Comment on above: Performed By: #### L 500.2500 #### [facility] [address] [place], [address] EST GFR - AA 99 mL/min Normal >60 [facility] Comment on above: Result Comment: Afri can [place] GFR Calc Performed By: #### L 500.2500 #### [facility] [address] [place], [address] GAP 10 Normal 5-15 [facility] Comment on above: Performed By: #### L 500.2500 #### [facility] [address] [place], [address] GFR/1.73 sq M.predicted among non-blacks MDRD (S/P/Bld) [Vol rate/Area] 82 mL/min/{1.73_m2} Normal >60 [facility] Comment on above: Result Comment: Non- GFR Calc Performed By: #### L 500.2500 #### [facility] [address] [place], [address] Glucose [Mass/Vol] 106 mg/dL Normal 74-106 [facility] Comment on above: Result Comment: Fast ing Glucose result from 100 to 125 mg/dL suggests IMPAIRED HOMEOSTASIS per A.D.A. criteria. Performed By: #### L 500.2500 #### [facility] [address] [place], [address] Potassium [Moles/Vol] 2.2 mmol/L Invalid Interpretation Code 3.5-5.1 [facility] Comment on above: Result Comment: Crit ical Result(s) Called at: 23:31:23 09/02/2022 by: Coy Gracia to Elke Hawthorne RN PCU. Results read back by same. Performed By: #### L 500.2500 #### [facility] [address] [place], [address] Sodium [Moles/Vol] 143 mmol/L Normal 136-145 [facility] Comment on above: Performed By: #### L 500.2500 #### [facility] [address] [place], [address] Urea nitrogen [Mass/Vol] 14 mg/dL Normal 7-18 [facility] Comment on above: Performed By: #### L 500.6943 #### [facility] [address] [place], [address] Basophil percentageOrdered B y: Dr. Ramos on 09-03-2022 Chloride [Moles/Vol] 111 mmol/L 98-107 [facility] Glucose [Mass/Vol] 107 mg/dL 74-106 [facility] Comment on above: Fasting Glucose resu lt from 100 to 125 mg/dL suggests IMPAIRED HOMEOSTASIS per A.D.A. criteria. Potassium [Moles/Vol] 4.8 mmol/L 3.5-5.1 [facility] Comment on above: Slight Hemolysis, Re sult may be falsely increased. Sodium [Moles/Vol] 141 mmol/L 136-145 [facility] Basophil percentageOrdered B y: Dr. Oswald on 09-03-2022 Basophils/100 WBC (Bld) 0.2 % 0-1 [facility] Bilirubin [Mass/Vol] 0.80 mg/dL 0.20-1.00 [facility] Comment on above: For patients on eltr ombopag therapy, use of Dimension [place] TBIL is not recommended. Eosinophils/100 WBC (Bld) 2.3 % 0-5 [facility] Neutrophils (Bld) [#/Vol] 6.6 10*3/uL 2.0-7.7 [facility] Neutrophils/100 WBC (Bld) 67.9 % 47-70 [facility] Protein [Mass/Vol] 6.1 g/dL 6.4-8.2 [facility] WBC (Bld) [#/Vol] 9.7 10*3/uL 4.4-11.0 [facility] Blood erythrocytes count (nu mber/volume)Ordered By: Dr. Oswald on 09-03-2022 RBC (Bld) [#/Vol] 4.71 10*6/uL 4.6-6.2 [facility] Blood hemoglobin measurement (mass/volume)Ordered By: Dr. Oswald on 09-03-2022 Hemoglobin (Bld) [Mass/Vol] 14.0 g/dL 13.0-16.5 [facility] Blood lymphocytes/100 leukoc ytesOrdered By: Dr. Oswald on 09-03-2022 Lymphocytes/100 WBC (Bld) 22.8 % 19-41 [facility] Blood monocytes/100 leukocyt esOrdered By: Dr. Oswald on 09-03-2022 Monocytes/100 WBC (Bld) 6.4 % 0-10 [facility] Blood platelet mean volumeOr dered By: Dr. Oswald on 09-03-2022 Platelet mean volume (Bld) [Entitic vol] 9.8 fL 6.2-12.0 [facility] CBC W/Diff, Automatedon Absolute Lymph 2.20 X10 3/uL Normal 0.83-4.51 [facility] Comment on above: Performed By: #### L 100.0100, L500.4050 #### [facility] [address] [place], [address] Absolute Neut 6.6 X10 3/uL Normal 2.0-7.7 [facility] Comment on above: Performed By: #### L 100.0100, L500.4050 #### [facility] [address] [place], [address] Basophils/100 WBC (Bld) 0.2 % Normal 0-1 [facility] Comment on above: Performed By: #### L 100.0100, L500.4050 #### [facility] [address] [place], [address] Eosinophils/100 WBC (Bld) 2.3 % Normal 0-5 [facility] Comment on above: Performed By: #### L 100.0100, L500.4050 #### [facility] [address] [place], [address] Erythrocyte distribution width (RBC) [Ratio] 11.7 % Normal 11.6-14.6 [facility] Comment on above: Performed By: #### L 100.0100, L500.4050 #### [facility] [address] [place], [address] Hematocrit (Bld) [Volume fraction] 39.7 % Low 40-54 [facility] Comment on above: Performed By: #### L 100.0100, L500.4050 #### [facility] [address] [place], [address] Hemoglobin (Bld) [Mass/Vol] 14.0 g/dL Normal 13.0-16.5 [facility] Comment on above: Performed By: #### L 100.0100, L500.4050 #### [facility] [address] [place], [address] IG% 0.400 Normal 0.0-0.9 [facility] Comment on above: Result Comment: IG% - Immature Granulocytes (promyelocytes, myelocytes and metamyelocytes) > 1% indicates that a LEFT SHIFT is Present. Performed By: #### L 100.0100, L500.4050 #### [facility] [address] [place], [address] Lymphocytes/100 WBC (Bld) 22.8 % Normal 19-41 [facility] Comment on above: Performed By: #### L 100.0100, L500.4050 #### [facility] [address] [place], [address] MCH (RBC) [Entitic mass] 29.7 pg Normal 27.0-32.0 [facility] Comment on above: Performed By: #### L 100.0100, L500.4050 #### [facility] [address] [place], [address] MCHC (RBC) [Mass/Vol] 35.3 g/dL Normal 32-36 [facility] Comment on above: Performed By: #### L 100.0100, L500.4050 #### [facility] [address] [place], [address] MCV (RBC) [Entitic vol] 84.3 fL Normal 80-94 [facility] Comment on above: Performed By: #### L 100.0100, L500.4050 #### [facility] [address] [place], [address] Monocytes/100 WBC (Bld) 6.4 % Normal 0-10 [facility] Comment on above: Performed By: #### L 100.0100, L500.4050 #### [facility] [address] [place], [address] Neutrophils/100 WBC (Bld) 67.9 % Normal 47-70 [facility] Comment on above: Performed By: #### L 100.0100, L500.4050 #### [facility] [address] [place], [address] Nucleated RBC (Bld) [#/Vol] 0 10*3/uL Normal 0-5 [facility] Comment on above: Performed By: #### L 100.0100, L500.4050 #### [facility] [address] [place], [address] Platelet mean volume (Bld) [Entitic vol] 9.8 fL Normal 6.2-12.0 [facility] Comment on above: Performed By: #### L 100.0100, L500.4050 #### [facility] [address] [place], [address] Platelets (Bld) [#/Vol] 261 10*3/uL Normal 150-450 [facility] Comment on above: Performed By: #### L 100.0100, L500.4050 #### [facility] [address] [place], [address] RBC (Bld) [#/Vol] 4.71 10*6/uL Normal 4.6-6.2 [facility] Comment on above: Performed By: #### L 100.0100, L500.4050 #### [facility] [address] [place], [address] RDW SD 35.7 fl Normal 35.1-43.9 [facility] Comment on above: Performed By: #### L 100.0100, L500.4050 #### [facility] [address] [place], [address] WBC (Bld) [#/Vol] 9.7 10*3/uL Normal 4.4-11.0 [facility] Comment on above: Performed By: #### L 100.0100, L500.4050 #### [facility] [address] [place], [address] Comprehensive Metabolic Prof ilon 09-03-2022 Albumin [Mass/Vol] 3.2 g/dL Normal 3.2-5.0 [facility] Comment on above: Performed By: #### L 100.0100, L500.4050 ####[facility] [address] [place], [address] Albumin/Globulin [Mass ratio] 1.1 {ratio} Normal 0.9-2.4 [facility] Comment on above: Performed By: #### L 100.0100, L500.4050 ####[facility] [address] [place], [address] ALK P 44 U/L Low 45-117 [facility] Comment on above: Performed By: #### L 100.0100, L500.4050 ####[facility] [address] [place], [address] ALT [Catalytic activity/Vol] 21 U/L Normal 16-61 [facility] Comment on above: Performed By: #### L 100.0100, L500.4050 ####[facility] [address] [place], [address] AST [Catalytic activity/Vol] 24 U/L Normal 15-37 [facility] Comment on above: Performed By: #### L 100.0100, L500.4050 ####[facility] [address] [place], [address] Bilirubin [Mass/Vol] 0.80 mg/dL Normal 0.20-1.00 [facility] Comment on above: Result Comment: For patients on eltrombopag therapy, use of Dimension Baldwin TBIL is not recommended. Performed By: #### L 100.0100, L500.4050 ####[facility] [address] [place], [address] BUN/CRE 12.0 RATIO Normal 10-20 [facility] Comment on above: Performed By: #### L 100.0100, L500.4050 ####[facility] [address] [place], [address] CA,Total 7.9 mg/dL Low 8.5-10.1 [facility] Comment on above: Performed By: #### L 100.0100, L500.4050 ####[facility] [address] [place], [address] Chloride [Moles/Vol] 112 mmol/L High 98-107 [facility] Comment on above: Performed By: #### L 100.0100, L500.4050 ####[facility] [address] [place], [address] CO2 [Moles/Vol] 23.0 mmol/L Normal 21.0-32.0 [facility] Comment on above: Performed By: #### L 100.0100, L500.4050 ####[facility] [address] [place], [address] Creatinine [Mass/Vol] 1.00 mg/dL Normal 0.70-1.30 [facility] Comment on above: Result Comment: The validity of the calculated GFR GFRAA in patients over 70 years has not been determined. Clinical correlation is essential. Performed By: #### L 100.0100, L500.4050 ####[facility] [address] [place], [address] ECRCL 121.32 ml/min Normal [facility] Comment on above: Performed By: #### L 100.0100, L500.4050 ####[facility] [address] [place], [address] EST GFR - AA 117 mL/min Normal >60 [facility] Comment on above: Result Comment: Afri can [place] GFR Calc Performed By: #### L 100.0100, L500.4050 ####[facility] [address] [place], [address] GAP 8 Normal 5-15 [facility] Comment on above: Performed By: #### L 100.0100, L500.4050 ####[facility] [address] [place], [address] GFR/1.73 sq M.predicted among non-blacks MDRD (S/P/Bld) [Vol rate/Area] 97 mL/min/{1.73_m2} Normal >60 [facility] Comment on above: Result Comment: Non- GFR Calc Performed By: #### L 100.0100, L500.4050 ####[facility] [address] [place], [address] Globulin (S) [Mass/Vol] 2.9 g/dL Normal 2.2-4.2 [facility] Comment on above: Performed By: #### L 100.0100, L500.4050 ####[facility] [address] [place], [address] Glucose [Mass/Vol] 103 mg/dL Normal 74-106 [facility] Comment on above: Result Comment: Fast ing Glucose result from 100 to 125 mg/dL suggests IMPAIRED HOMEOSTASIS per A.D.A. criteria. Performed By: #### L 100.0100, L500.4050 ####[facility] [address] [place], [address] Potassium [Moles/Vol] 2.5 mmol/L Invalid Interpretation Code 3.5-5.1 [facility] Comment on above: Result Comment: Crit ical Result(s) Called at: 08:37:56 09/03/2022 by: Terry Cardoza to Jase CRUZ ([facility]). Results read back by same. Performed By: #### L 100.0100, L500.4050 ####[facility] [address] [place], [address] Sodium [Moles/Vol] 143 mmol/L Normal 136-145 [facility] Comment on above: Performed By: #### L 100.0100, L500.4050 ####[facility] [address] [place], [address] T PROT 6.1 g/dL Low 6.4-8.2 [facility] Comment on above: Performed By: #### L 100.0100, L500.4050 ####[facility] [address] [place], [address] Urea nitrogen [Mass/Vol] 12 mg/dL Normal 7-18 [facility] Comment on above: Performed By: #### L 100.0100, L500.4050 ####[facility] [address] [place], [address] Determination of erythrocyte mean corpuscular volume (MCV)Ordered By: Dr. Oswald on 09-03-2022 MCV (RBC) [Entitic vol] 84.3 fL 80-94 [facility] Hematocrit Auto (Bld) [Volum e fraction]Ordered By: Dr. Oswald on 09-03-2022 Hematocrit (Bld) [Volume fraction] 39.7 % 40-54 [facility] - Chemistry and C hemistry - challengeOrdered By: Dr. Ramos on 09-03-2022 CO2 [Moles/Vol] 26.0 mmol/L 21.0-32.0 [facility] Urea nitrogen/Creatinine [Mass ratio] 10.6 mg/mg 10-20 [facility] - Chemistry and C hemistry - challengeOrdered By: Dr. Oswald on 09-03-2022 ALP [Catalytic activity/Vol] 44 U/L 45-117 [facility] ALT [Catalytic activity/Vol] 21 U/L 16-61 [facility] Globulin (S) [Mass/Vol] 2.9 g/dL 2.2-4.2 [facility] - Hematology and Cell countsOrdered By: Dr. Oswald on 09-03-2022 Erythrocyte distribution width (RBC) [Entitic vol] 35.7 fL 35.1-43.9 [facility] Erythrocyte distribution width (RBC) [Ratio] 11.7 % 11.6-14.6 [facility] Immature granulocytes/100 WBC (Bld) 0.400 % 0.0-0.9 [facility] Comment on above: IG% - Immature Granu locytes (promyelocytes, myelocytes and metamyelocytes) > 1% indicates that a LEFT SHIFT is Present. MCH (RBC) [Entitic mass] 29.7 pg 27.0-32.0 [facility] Nucleated RBC/100 WBC (Bld) [Ratio] 0 % 0-5 [facility] MCHC Auto (RBC) [Mass/Vol]Or dered By: Dr. Oswald on 09-03-2022 MCHC (RBC) [Mass/Vol] 35.3 g/dL 32-36 [facility] No Panel InformationOrdered By: Dr. Ramos on 09-03-2022 Estimated Creatinine Clearance Calc 129.06 ml/min [facility] Estimated GFR (MDRD) Amer 125 mL/min >60 [facility] Comment on above: GFR Calc Estimated GFR (MDRD) Non-Af Amer 103 mL/min >60 [facility] Comment on above: Non- GFR Calc Platelets bldOrdered By: Dr. Oswald on 09-03-2022 Platelets (Bld) [#/Vol] 261 10*3/uL 150-450 [facility] Serum or plasma albumin barber urement (mass/volume)Ordered By: Dr. Oswald on 09-03-2022 Albumin [Mass/Vol] 3.2 g/dL 3.2-5.0 [facility] Serum or plasma albumin/glob ulin mass ratioOrdered By: Dr. Oswald on 09-03-2022 Albumin/Globulin [Mass ratio] 1.1 {ratio} 0.9-2.4 [facility] Serum or plasma calcium barber urement (mass/volume)Ordered By: Dr. Ramos on 09-03-2022 Calcium [Mass/Vol] 8.2 mg/dL 8.5-10.1 [facility] Serum or plasma creatinine m easurement (mass/volume)Ordered By: Dr. Ramos on 09-03-2022 Creatinine [Mass/Vol] 0.94 mg/dL 0.70-1.30 [facility] Comment on above: The validity of the calculated GFR & GFRAA in patients over 70 years has not been determined. Clinical correlation is essential. Serum or plasma urea nitroge n measurement (mass/volume)Ordered By: Dr. Ramos on 09-03-2022 Urea nitrogen [Mass/Vol] 10 mg/dL 7-18 [facility] Thin prep Papanicolaou smear with manual screeningOrdered By: Dr. Ramos on 09-03-2022 Thin prep Papanicolaou smear with manual screening 4 5-15 [facility] Thin prep Papanicolaou smear with manual screeningOrdered By: Dr. Oswald on 09-03-2022 Thin prep Papanicolaou smear with manual screening 24 U/L 15-37 [facility] 12 Lead EKGon 09-02-2022 12 Lead EKG [facility] Cardiovascular Services [address] [place] [address] 12 Lead EKG 09/02/22 1639 MR#: [id number] Acct: [id number] Name: DARIUSZ MONAHAN Rep #: [id number] : 1995 26 From: Ruth Johnson MD Attending Dr: Dr. Tri Ramos MD Status: DI S PRITI Ordering Dr: Dionte Ramírez Date: 09/02/22 Location: [facility] Sex: M C Admitted: 09/02/22 Test Reason : HYPOKALEMIA Blood Pressure : / mmHG Vent. Rate : 087 BPM Atrial Rate : 087 BPM P-R Int : 156 ms QRS Dur : 098 ms QT Int : 332 ms P-R-T Axes : 047 063 -18 degrees QTc Int : 399 ms Normal sinus rhythm with sinus arrhythmia Nonspecific T wave abnormality Abnormal ECG Confirmed by AUSTEN CROSS, MIGUEL A ([id number]), story editor TEENA NIX ([id number]) on 09/05/2022 2:40:47 PM Referred By: Confirmed By:KELL JOHNSON MD 09/05/22 1440 Date Ruth Johnson MD CC: ROMMEL Ramírez; MACHINE DESIGNERAdina Ge; Dr. Tri Ramos MD Signed Normal [facility] Absolute lymphocyte countOrd ered By: Dionte Ramírez on 09-02-2022 Lymphocytes Auto (Unsp spec) [#/Vol] 2.20 10*3/uL 0.83-4.51 [facility] Basophil percentageOrdered B y: Dionte Ramírez on 09-02-2022 Basophil percentage 0 SEEN /hpf 0-5 [facility] Basophils/100 WBC (Bld) 0.4 % 0-1 [facility] Bilirubin [Mass/Vol] 0.40 mg/dL 0.20-1.00 [facility] Comment on above: For patients on eltr ombopag therapy, use of Dimension [place] TBIL is not recommended. Chloride [Moles/Vol] 109 mmol/L 98-107 [facility] Eosinophils/100 WBC (Bld) 1.1 % 0-5 [facility] Glucose [Mass/Vol] 114 mg/dL 74-106 [facility] Comment on above: Fasting Glucose resu lt from 100 to 125 mg/dL suggests IMPAIRED HOMEOSTASIS per A.D.A. criteria. Neutrophils (Bld) [#/Vol] 8.0 10*3/uL 2.0-7.7 [facility] Neutrophils/100 WBC (Bld) 72.1 % 47-70 [facility] Potassium [Moles/Vol] 2.1 mmol/L 3.5-5.1 [facility] Comment on above: Critical Result(s) C alled at: 17:32:57 09/02/2022 by: RANDALL OSWALD TO JEREL LEWIS. Results read back by same. Protein [Mass/Vol] 7.1 g/dL 6.4-8.2 [facility] Sodium [Moles/Vol] 143 mmol/L 136-145 [facility] WBC (Bld) [#/Vol] 11.1 10*3/uL 4.4-11.0 [facility] Bilirubin Test strip Ql (U)O rdered By: Dionte Ramírez on 09-02-2022 Bilirubin Ql (U) Negative Negative [facility] Blood erythrocytes count (nu mber/volume)Ordered By: Dionte Ramírez on 09-02-2022 RBC (Bld) [#/Vol] 5.42 10*6/uL 4.6-6.2 [facility] Blood hemoglobin measurement (mass/volume)Ordered By: Dionte Ramírez on 09-02-2022 Hemoglobin (Bld) [Mass/Vol] 15.9 g/dL 13.0-16.5 [facility] Blood lymphocytes/100 leukoc ytesOrdered By: Dionte Ramírez on 09-02-2022 Lymphocytes/100 WBC (Bld) 19.7 % 19-41 [facility] Blood monocytes/100 leukocyt esOrdered By: Dionte Ramírez on 09-02-2022 Monocytes/100 WBC (Bld) 6.3 % 0-10 [facility] Blood platelet mean volumeOr dered By: Dionte Ramírez on 09-02-2022 Platelet mean volume (Bld) [Entitic vol] 9.7 fL 6.2-12.0 [facility] CBC W/Diff, Automatedon Absolute Lymph 2.20 X10 3/uL Normal 0.83-4.51 [facility] Comment on above: Performed By: #### L 100.0100, L501.3620, L501.5200, L500.4050 #### [facility] [address] [place], [address] Absolute Neut 8.0 X10 3/uL High 2.0-7.7 [facility] Comment on above: Performed By: #### L 100.0100, L501.3620, L501.5200, L500.4050 #### [facility] [address] [place], [address] Basophils/100 WBC (Bld) 0.4 % Normal 0-1 [facility] Comment on above: Performed By: #### L 100.0100, L501.3620, L501.5200, L500.4050 #### [facility] [address] [place], [address] Eosinophils/100 WBC (Bld) 1.1 % Normal 0-5 [facility] Comment on above: Performed By: #### L 100.0100, L501.3620, L501.5200, L500.4050 #### [facility] [address] [place], [address] Erythrocyte distribution width (RBC) [Ratio] 11.6 % Normal 11.6-14.6 [facility] Comment on above: Performed By: #### L 100.0100, L501.3620, L501.5200, L500.4050 #### [facility] [address] [place], [address] Hematocrit (Bld) [Volume fraction] 45.6 % Normal 40-54 [facility] Comment on above: Performed By: #### L 100.0100, L501.3620, L501.5200, L500.4050 #### [facility] [address] [place], [address] Hemoglobin (Bld) [Mass/Vol] 15.9 g/dL Normal 13.0-16.5 [facility] Comment on above: Performed By: #### L 100.0100, L501.3620, L501.5200, L500.4050 #### [facility] [address] [place], [address] IG% 0.400 Normal 0.0-0.9 [facility] Comment on above: Result Comment: IG% - Immature Granulocytes (promyelocytes, myelocytes and metamyelocytes) > 1% indicates that a LEFT SHIFT is Present. Performed By: #### L 100.0100, L501.3620, L501.5200, L500.4050 #### [facility] [address] [place], [address] Lymphocytes/100 WBC (Bld) 19.7 % Normal 19-41 [facility] Comment on above: Performed By: #### L 100.0100, L501.3620, L501.5200, L500.4050 #### [facility] [address] [place], [address] MCH (RBC) [Entitic mass] 29.3 pg Normal 27.0-32.0 [facility] Comment on above: Performed By: #### L 100.0100, L501.3620, L501.5200, L500.4050 #### [facility] [address] [place], [address] MCHC (RBC) [Mass/Vol] 34.9 g/dL Normal 32-36 [facility] Comment on above: Performed By: #### L 100.0100, L501.3620, L501.5200, L500.4050 #### [facility] [address] [place], [address] MCV (RBC) [Entitic vol] 84.1 fL Normal 80-94 [facility] Comment on above: Performed By: #### L 100.0100, L501.3620, L501.5200, L500.4050 #### [facility] [address] [place], [address] Monocytes/100 WBC (Bld) 6.3 % Normal 0-10 [facility] Comment on above: Performed By: #### L 100.0100, L501.3620, L501.5200, L500.4050 #### [facility] [address] [place], [address] Neutrophils/100 WBC (Bld) 72.1 % High 47-70 [facility] Comment on above: Performed By: #### L 100.0100, L501.3620, L501.5200, L500.4050 #### [facility] [address] [place], [address] Nucleated RBC (Bld) [#/Vol] 0 10*3/uL Normal 0-5 [facility] Comment on above: Performed By: #### L 100.0100, L501.3620, L501.5200, L500.4050 #### [facility] [address] [place], [address] Platelet mean volume (Bld) [Entitic vol] 9.7 fL Normal 6.2-12.0 [facility] Comment on above: Performed By: #### L 100.0100, L501.3620, L501.5200, L500.4050 #### [facility] [address] [place], [address] Platelets (Bld) [#/Vol] 301 10*3/uL Normal 150-450 [facility] Comment on above: Performed By: #### L 100.0100, L501.3620, L501.5200, L500.4050 #### [facility] [address] [place], [address] RBC (Bld) [#/Vol] 5.42 10*6/uL Normal 4.6-6.2 [facility] Comment on above: Performed By: #### L 100.0100, L501.3620, L501.5200, L500.4050 #### [facility] [address] [place], [address] RDW SD 34.7 fl Low 35.1-43.9 [facility] Comment on above: Performed By: #### L 100.0100, L501.3620, L501.5200, L500.4050 #### [facility] [address] [place], [address] WBC (Bld) [#/Vol] 11.1 10*3/uL High 4.4-11.0 [facility] Comment on above: Performed By: #### L 100.0100, L501.3620, L501.5200, L500.4050 #### [facility] [address] [place], [address] CPK Total, Creatine Kinaseon 09-02-2022 CPK TOTAL 318 U/L High 39-308 [facility] Comment on above: Performed By: #### L 100.0100, L501.3620, L501.5200, L500.4050 #### [facility] [address] [place], [address] Comprehensive Metabolic Prof ilon 09-02-2022 Albumin [Mass/Vol] 4.0 g/dL Normal 3.2-5.0 [facility] Comment on above: Performed By: #### L 100.0100, L501.3620, L501.5200, L500.4050 #### [facility] [address] [place], [address] Albumin/Globulin [Mass ratio] 1.3 {ratio} Normal 0.9-2.4 [facility] Comment on above: Performed By: #### L 100.0100, L501.3620, L501.5200, L500.4050 #### [facility] [address] [place], [address] ALK P 52 U/L Normal 45-117 [facility] Comment on above: Performed By: #### L 100.0100, L501.3620, L501.5200, L500.4050 #### [facility] [address] [place], [address] ALT [Catalytic activity/Vol] 31 U/L Normal 16-61 [facility] Comment on above: Performed By: #### L 100.0100, L501.3620, L501.5200, L500.4050 #### [facility] [address] [place], [address] AST [Catalytic activity/Vol] 21 U/L Normal 15-37 [facility] Comment on above: Performed By: #### L 100.0100, L501.3620, L501.5200, L500.4050 #### [facility] [address] [place], [address] Bilirubin [Mass/Vol] 0.40 mg/dL Normal 0.20-1.00 [facility] Comment on above: Result Comment: For patients on eltrombopag therapy, use of Dimension [place] TBIL is not recommended. Performed By: #### L 100.0100, L501.3620, L501.5200, L500.4050 #### [facility] [address] [place], [address] BUN/CRE 12.0 RATIO Normal 10-20 [facility] Comment on above: Performed By: #### L 100.0100, L501.3620, L501.5200, L500.4050 #### [facility] [address] [place], [address] CA,Total 9.0 mg/dL Normal 8.5-10.1 [facility] Comment on above: Performed By: #### L 100.0100, L501.3620, L501.5200, L500.4050 #### [facility] [address] [place], [address] Chloride [Moles/Vol] 109 mmol/L High 98-107 [facility] Comment on above: Performed By: #### L 100.0100, L501.3620, L501.5200, L500.4050 #### [facility] [address] [place], [address] CO2 [Moles/Vol] 26.0 mmol/L Normal 21.0-32.0 [facility] Comment on above: Performed By: #### L 100.0100, L501.3620, L501.5200, L500.4050 #### [facility] [address] [place], [address] Creatinine [Mass/Vol] 1.08 mg/dL Normal 0.70-1.30 [facility] Comment on above: Result Comment: The validity of the calculated GFR GFRAA in patients over 70 years has not been determined. Clinical correlation is essential. Performed By: #### L 100.0100, L501.3620, L501.5200, L500.4050 #### [facility] [address] [place], [address] ECRCL 112.33 ml/min Normal [facility] Comment on above: Performed By: #### L 100.0100, L501.3620, L501.5200, L500.4050 #### [facility] [address] [place], [address] EST GFR - AA 107 mL/min Normal >60 [facility] Comment on above: Result Comment: Afri can [place] GFR Calc Performed By: #### L 100.0100, L501.3620, L501.5200, L500.4050 #### [facility] [address] [place], [address] GAP 8 Normal 5-15 [facility] Comment on above: Performed By: #### L 100.0100, L501.3620, L501.5200, L500.4050 #### [facility] [address] [place], [address] GFR/1.73 sq M.predicted among non-blacks MDRD (S/P/Bld) [Vol rate/Area] 89 mL/min/{1.73_m2} Normal >60 [facility] Comment on above: Result Comment: Non- GFR Calc Performed By: #### L 100.0100, L501.3620, L501.5200, L500.4050 #### [facility] [address] [place], [address] Globulin (S) [Mass/Vol] 3.1 g/dL Normal 2.2-4.2 [facility] Comment on above: Performed By: #### L 100.0100, L501.3620, L501.5200, L500.4050 #### [facility] [address] [place], [address] Glucose [Mass/Vol] 114 mg/dL High 74-106 [facility] Comment on above: Result Comment: Fast ing Glucose result from 100 to 125 mg/dL suggests IMPAIRED HOMEOSTASIS per A.D.A. criteria. Performed By: #### L 100.0100, L501.3620, L501.5200, L500.4050 #### [facility] [address] [place], [address] Sodium [Moles/Vol] 143 mmol/L Normal 136-145 [facility] Comment on above: Performed By: #### L 100.0100, L501.3620, L501.5200, L500.4050 #### [facility] [address] [place], [address] T PROT 7.1 g/dL Normal 6.4-8.2 [facility] Comment on above: Performed By: #### L 100.0100, L501.3620, L501.5200, L500.4050 #### [facility] [address] [place], [address] Urea nitrogen [Mass/Vol] 13 mg/dL Normal 7-18 [facility] Comment on above: Performed By: #### L 100.0100, L501.3620, L501.5200, L500.4050 #### [facility] [address] [place], [address] Determination of erythrocyte mean corpuscular volume (MCV)Ordered By: Dionte Ramírez on 09-02-2022 MCV (RBC) [Entitic vol] 84.1 fL 80-94 [facility] Emergency Department Summary on 09-02-2022 Emergency Department Summary [facility] Medical Records Department [address] [place] [address] Emergency Department Summary 09/02/22 MR#: [id number] Acct: [id number] Name: DARIUSZ MONAHAN Rep #: [id number] : 1995 26 From: Dionte MULLINSC PCP: ROMMEL Starks Status:REG ER Location: ED HPI History of Present Illness Chief Complaint: Abn Labs Narrative Narrative: Patient is a 26-year-old male with history of hypokalemia that is so severe that he has difficulty moving his body. Patient has had this for several years. He does have a PCP. Patient states that he took 60 mill equivalents of potassium today, he does have a prescription for this which is liquid. Patient states for the last 24 hours has been feeling more weak, more weakness while walking and he is concerned that this is happening again. Patient denies any chest pain. Patient states he was sick last week however he is getting over this. He denies any chest pain, shortness of breath. He denies any headache. [facility] Medical History (Updated 09/02/22 @ 21:[address] Monica Oswald MD) Hypokalemic periodic paralysis Home Medications potassium chloride 20 mEq tablet,extended release(part/cryst) 2 tab PO BID #20 tabs 06/18/18 [Rx Last Taken Unknown] Allergy/AdvReac Type Severity Reaction Status Date / Time Sulfa (Sulfonamide Allergy Shortness Verified 09/02/22 16:31 Antibiotics) of breath Surgical History (Updated 09/02/22 @ 16:31 by Viviane Guerrero) History of adenoidectomy Social History Smoking Status: Never smoker ROS ROS ED ROS Narrative Constitutional: Negative for fever, chills, weight loss. Positive for weakness Eyes: Negative for vision loss, vision change, double vision ENT: Negative for any sore throat, ear pain, congestion Cardiovascular: Negative for any chest pain, tightness, palpitations Respiratory: Negative for any cough, sputum production, hemoptysis, dyspnea, dyspnea on exertion, orthopnea Gastrointestinal: Negative for any abdominal pain, nausea, vomiting, diarrhea, constipation, blood in stool, blood in vomit : Negative for any urinary frequency, dysuria, retention, blood in urine Muscle skeletal: Negative for any muscle joint pain, stiffness, arthralgias, neck pain, back pain. Positive for myalgias, feeling of muscle weakness Neurological: Negative for any headache, syncope, numbness or tingling, dizziness Skin: Negative for any rashes, lumps, itching, abrasions, lacerations Psychiatric: Negative for any depression, anxiety, stress, suicidal ideation, homicidal ideation Hematologic: Negative for any easy bruising, excessive bruising, easy bleeding Allergies: Negative for any eczema, hives, rash EXAM Physical Exam Narrative Exam Narrative: Vital signs reviewed. HEET: Head normocephalic atraumatic, TMs clear bilaterally. Posterior pharynx is clear, moist mucous membranes. Nares clear bilaterally. Neck: Supple with no lymphadenopathy or tenderness. No signs of meningismus, negative jolt sign. Cardiac: Regular rate and rhythm no murmurs gallops or rubs, equal peripheral pulses bilaterally. Respiratory: Lungs clear to auscultation bilaterally. No chest tenderness. Abdomen: Soft, nontender, nondistended. No abdominal bruit or pulsatile masses. No hepatosplenomegaly Extremities: No peripheral edema, no signs of gross trauma or deformity. Active full range of motion of all extremities. Patient appears to be moving all extremities. Neuro: Cranial nerves II through XII intact, no focal neurological deficits. Negative Chvostek Sign, equal patellar reflexes Skin: Clean dry and intact with no rash, purpura, petechiae, vesicles or pustules. Backs/flank: No CVA tenderness, no midline spinal tenderness, no deformity. Psych: Normal mood and affect. No SI, HI or acute psychosis. Const Vital Signs: 09/02/22 15:44 09/02/22 16:32 09/02/22 16:32 Temperature 96.5 F L Temperature Source Temporal Pulse Rate 98 92 Respiratory Rate 18 18 Respiratory Effort Normal Non-Labored Respiratory Pattern Normal Blood Pressure 177/105 H 144/68 H Blood Pressure Mean 129 93 Pulse Ox 100 98 Oxygen Delivery Method Room Air Room Air 09/02/22 18:18 09/02/22 20:09 Temperature Temperature Source Pulse Rate 92 107 H Respiratory Rate 17 16 Respiratory Effort Respiratory Pattern Blood Pressure 136/105 H 149/96 H Blood Pressure Mean 115 113 Pulse Ox 98 96 Oxygen Delivery Method Room Air Room Air Positive well nourished and well developed General Appearance ED: well developed Physical Exam Const Vital Signs: 09/02/22 15:44 09/02/22 16:32 09/02/22 16:32 Temperature 96.5 F L Temperature Source Temporal Pulse Rate 98 92 Respiratory Rate 18 18 Respiratory Effor (more content not included)... Normal [facility] H AND P Exam - [facility] 09-02-2022 H&P Exam - Hospitalist [facility] Medical Records Department [address] [place] [address] H P Exam - Hospitalist 09/02/22 2141 MR#: [id number] Acct: [id number] Name: DARIUSZ MONAHAN Rep #: [id number] : 1995 26 From: Monica Oswald MD PCP: Aaron Ge, MACHINE DESIGNER-C Status:ADM PRITI Location: [place] [address] HPI - General General Date of Admission: 09/02/22 Date of Service: 09/02/22 Chief Complaint: Weakness. HPI Narrative The patient is a 26 y/o M w/ PMHx: Obesity, Hereditary Hypokalemic periodic paralysis with prior records noting noncompliance with his K supplementation who presents to the [facility] ED on 09/02/22 with history of self administration of 60 mill equivalents of potassium on day of presentation with a prescription ongoing which is liquid he notes however in the last 24 hours he reports feeling more weak, worse with activity with recent upper respiratory type illness the week prior although the symptoms seem to been improving but given his mild ability prompted ED evaluation. Work-up in the ED included T96.5, heart rate initially 98 with most recent repeat 107, BP initially 177/105 with most recent repeat 149/96, respiratory rate 18, 100% room air, CBC with WC 11.1 coming with 15.9, platelet 301 with mild left shift, CMP with potassium 2.1, chloride 109, glucose 114, calcium 9.0, magnesium 2.0, total creatinine kinase 318, urinalysis with evidence of elevated specific gravity 1.025, protein 15, ketone 5, occult blood 10, leukocyte Estrace 25, negative nitrite, no evidence of UTI. EKG with sinus rhythm with questionable possible small U waves with no acute evidence of ischemia. In the ED patient initiated on potassium 40 mill equivalent IV however he was only able to tolerate 2 bags and was administered then potassium chloride 40 mill equivalent p.o. x1 but complained of significant muscle cramps and concern for catalyst of further paralysis therefore the IV was discontinued and patient was administered Norflex 60 mg IM x1 as well as 1 L normal saline. Patient was offered oral supplementation with discharge to home however felt he was too weak therefore planned admission. [facility], [facility] Medical History Hypokalemic periodic paralysis Obesity Home Medications potassium chloride 20 mEq/15 mL oral liquid 20 meq PO BID PRN Hypokalemia 09/02/22 [History Last Taken Unknown] Allergy/AdvReac Type Severity Reaction Status Date / Time Sulfa (Sulfonamide Allergy Shortness Verified 09/02/22 16:31 Antibiotics) of breath Family History (Updated 09/02/22 @ 22:[address] Monica Oswald MD) Father Familial hypokalemic periodic paralysis Hypertension Brother Familial hypokalemic periodic paralysis Hypertension Mother Hypothyroidism Surgical History History of adenoidectomy Social History (Updated 09/02/22 @ 22:[address] Monica Oswald MD) household members: significant other and children Smoking Status: Never smoker alcohol intake: current alcohol intake frequency: holidays/special occasions only substance use type: does not use ROS ROS Narrative Admission Review of Systems: CONSTITUTIONAL: No weight loss, fever, chills, + weakness or fatigue. HEENT: Eyes: No visual loss, blurred vision, double vision or yellow sclerae. Ears, Nose, Throat: No hearing loss, sneezing, congestion, runny nose or sore throat. SKIN: No rash or itching, lesions, wounds. CARDIOVASCULAR: No chest pain, chest pressure or chest discomfort, palpitations, edema, orthopnea, syncopal events. RESPIRATORY: No shortness of breath, cough or sputum, wheezing, hemoptysis. GASTROINTESTINAL: No anorexia, nausea, vomiting or diarrhea, abdominal pain, melena, BRBPR. GENITOURINARY: No dysuria, frequency, urgency or retention. NEUROLOGICAL: + Episodes of paralysis. No headache, dizziness, syncope, paralysis, ataxia, numbness or tingling in the extremities, focal weakness, change in bowel or bladder control, seizure. MUSCULOSKELETAL: + muscle, back pain, joint pain or stiffness. HEMATOLOGIC: No anemia, bleeding or bruising. LYMPHATICS: No enlarged nodes. No history of splenectomy. PSYCHIATRIC: No history of depression or anxiety. ENDOCRINOLOGIC: No reports of sweating, cold or heat intolerance. No polyuria or polydipsia. ALLERGIES: No history of asthma, hives, eczema or rhinitis. Vital Signs Vital Signs Vital Signs: 09/02/22 15:44 09/02/22 16:32 09/02/22 16:32 Temperature 96.5 F L Temperature Source Temporal Pulse Rate 98 92 Respiratory Rate 18 18 Respiratory Effort Normal Non-Labored Respiratory Pattern Normal Blood Pressure 177/105 H 144/68 H Blood Pressure Mean 129 93 Pulse Ox 100 98 Oxygen Delivery Method Room Air Room Air 09/02/22 18:18 09/02/22 20: (more content not included)... Normal [facility] Hematocrit Auto (Bld) [Volum e fraction]Ordered By: Dionte Ramírez on 09-02-2022 Hematocrit (Bld) [Volume fraction] 45.6 % 40-54 [facility] Ketones Test strip Ql (U)Ord ered By: Dionte Ramírez on 09-02-2022 Ketones Ql (U) 5 mg/dl Negative [facility] Laboratory - Chemistry and C hemistry - challengeOrdered By: Dionte Ramírez on 09-02-2022 ALP [Catalytic activity/Vol] 52 U/L 45-117 [facility] ALT [Catalytic activity/Vol] 31 U/L 16-61 [facility] CK [Catalytic activity/Vol] 318 U/L 39-308 [facility] CO2 [Moles/Vol] 26.0 mmol/L 21.0-32.0 [facility] Globulin (S) [Mass/Vol] 3.1 g/dL 2.2-4.2 [facility] Magnesium [Mass/Vol] 2.0 mg/dL 1.6-2.6 [facility] Urea nitrogen/Creatinine [Mass ratio] 12.0 mg/mg 10-20 [facility] Laboratory - Hematology and Cell countsOrdered By: Dionte Ramírez on 09-02-2022 Erythrocyte distribution width (RBC) [Entitic vol] 34.7 fL 35.1-43.9 [facility] Erythrocyte distribution width (RBC) [Ratio] 11.6 % 11.6-14.6 [facility] Immature granulocytes/100 WBC (Bld) 0.400 % 0.0-0.9 [facility] Comment on above: IG% - Immature Granu locytes (promyelocytes, myelocytes and metamyelocytes) > 1% indicates that a LEFT SHIFT is Present. MCH (RBC) [Entitic mass] 29.3 pg 27.0-32.0 [facility] Nucleated RBC/100 WBC (Bld) [Ratio] 0 % 0-5 [facility] MCHC Auto (RBC) [Mass/Vol]Or dered By: Dionte Ramírez on 09-02-2022 MCHC (RBC) [Mass/Vol] 34.9 g/dL 32-36 [facility] Magnesiumon 09-02-2022 Magnesium [Mass/Vol] 2.0 mg/dL Normal 1.6-2.6 [facility] Comment on above: Performed By: #### L 100.0100, L501.3620, L501.5200, L500.4050 #### [facility] Laboratory [place], [address] Mucus LM Ql (Urine sed)Order ed By: Dionte Ramírez on 09-02-2022 Mucus Ql (Urine sed) 0 SEEN /hpf [facility] Nitrite Test strip Ql (U)Ord ered By: Dionte Ramírez on 09-02-2022 Nitrite Ql (U) Negative Negative [facility] No Panel InformationOrdered By: Dionte Ramírez on 09-02-2022 Estimated Creatinine Clearance Calc 112.33 ml/min [facility] Estimated GFR (MDRD) Amer 107 mL/min >60 [facility] Comment on above: GFR Calc Estimated GFR (MDRD) Non-Af Amer 89 mL/min >60 [facility] Comment on above: Non- GFR Calc Platelets bldOrdered By: Palma Ramírez on 09-02-2022 Platelets (Bld) [#/Vol] 301 10*3/uL 150-450 [facility] Protein Test strip Ql (U)Ord ered By: Dionte Ramírez on 09-02-2022 Protein Ql (U) 15 mg/dl Negative [facility] Serum or plasma albumin barber urement (mass/volume)Ordered By: Dionte Ramírez on 09-02-2022 Albumin [Mass/Vol] 4.0 g/dL 3.2-5.0 [facility] Serum or plasma albumin/glob ulin mass ratioOrdered By: Dionte Ramírez on 09-02-2022 Albumin/Globulin [Mass ratio] 1.3 {ratio} 0.9-2.4 [facility] Serum or plasma calcium barber urement (mass/volume)Ordered By: Dionte Ramírez on 09-02-2022 Calcium [Mass/Vol] 9.0 mg/dL 8.5-10.1 [facility] Serum or plasma creatinine m easurement (mass/volume)Ordered By: Dionte Ramírez on 09-02-2022 Creatinine [Mass/Vol] 1.08 mg/dL 0.70-1.30 [facility] Comment on above: The validity of the calculated GFR & GFRAA in patients over 70 years has not been determined. Clinical correlation is essential. Serum or plasma urea nitroge n measurement (mass/volume)Ordered By: Dionte Ramírez on 09-02-2022 Urea nitrogen [Mass/Vol] 13 mg/dL 7-18 [facility] Squamous epithelial cells de tection in urine sediment by light microscopyOrdered By: Dionte Ramírez on 09-02-2022 Epithelial cells.squamous LM Ql (Urine sed) 0 SEEN /hpf 0-5 [facility] Thin prep Papanicolaou smear with manual screeningOrdered By: Dionte Ramírez on 09-02-2022 Thin prep Papanicolaou smear with manual screening 21 U/L 15-37 [facility] Thin prep Papanicolaou smear with manual screening 8 5-15 [facility] Urinalysis, Completeon 09-02 BACTERIA 0 SEEN Normal None Seen [facility] Comment on above: Order Comment: CLEAN CATCH Performed By: #### L 400.0001 ####[facility] [address] [place], [place], [phone] EPI,SQUAMOUS 0 SEEN Normal 0-5 [facility] Comment on above: Order Comment: CLEAN CATCH Performed By: #### L [id number] ####[facility] [address] [place], [place], [phone] Mucus Ql (Urine sed) 0 SEEN Normal [facility] Comment on above: Order Comment: CLEAN CATCH Performed By: #### L [id number] ####[facility] [address] [place], [address] RBC 0 SEEN Normal 0-5 [facility] Comment on above: Order Comment: CLEAN CATCH Performed By: #### L [id number] ####[facility] [address] [place], [address] WBC 0 SEEN Normal 0-5 [facility] Comment on above: Order Comment: CLEAN CATCH Performed By: #### L [id number] ####[facility] [address] [place], [place], [phone] Urine blood detectionOrdered By: Dionte Ramírez on 09-02-2022 RBC Ql (U) 10 /ul Negative [facility] RBC Ql (U) 0 SEEN /hpf 0-5 [facility] Urine clarityOrdered By: Palma Ramírez on 09-02-2022 Clarity (U) Clear Clear [facility] Urine color determinationOrd ered By: Dionte Ramírez on 09-02-2022 Color (U) Yellow Yellow [facility] Urine glucose detectionOrder ed By: Dionte Ramírez on 09-02-2022 Glucose Ql (U) Normal mg/dl Normal [facility] Urine leukocyte esterase det ection by dipstickOrdered By: Dionte Ramírez on 09-02-2022 Leukocyte esterase Test strip Ql (U) 25 /ul Negative [facility] Urine pHOrdered By: Dionte allen on 09-02-2022 pH (U) 5.0 [pH] 5.0 - 8.0 [facility] Urine sediment bacteria coun t by microscopy (number/high power field)Ordered By: Dionte Ramírez on 09-02-2022 Bacteria LM.HPF (Urine sed) [#/Area] 0 /[HPF] None Seen [facility] Urine specific gravity measu rementOrdered By: Dionte Ramírez on 09-02-2022 Specific gravity (U) [Rel density] 1.025 1.002-1.030 [facility] Urobilinogen Auto test strip Ql (U)Ordered By: Dionte Ramírez on 09-02-2022 Urobilinogen Ql (U) Normal mg/dl Normal [facility] RIGHT FOREARM 2Von 2 RIGHT FOREARM 2V EXAMINATION: TWO XRAY VIEWS OF THE RIGHT FOREARM 06/21/2021 6:25 pm COMPARISON: None. HISTORY: ORDERING SYSTEM PROVIDED HISTORY: FALL FINDINGS: There is no evidence of acute fracture. There is normal alignment. No acute joint abnormality. No focal osseous lesion. No focal soft tissue abnormality. IMPRESSION: No acute osseous abnormality. Normal [facility] Vital Signs Date Time Vital Sign Value Performing Clinician Facility 04-27-2024 12:31-0500 Body temperature 98.29 [degF] Bebeto WOLFE Work Phone: [facility] 04-27-2024 12:31-0500 Body weight 113.2 kg Krislyn Aberegg PA Work Phone: [facility] 04-27-2024 12:31-0500 Diastolic blood pressure 87 mm[Hg] Krislyn Aberegg PA Work Phone: [facility] 04-27-2024 12:31-0500 Heart rate 62 /min Krislyn Aberegg PA Work Phone: [facility] 04-27-2024 12:31-0500 Respiratory rate 16 /min Krislyn Aberegg PA Work Phone: [facility] 04-27-2024 12:31-0500 SaO2% (BldA) [Mass fraction] 99 % Krislyn Aberegg PA Work Phone: [facility] 04-27-2024 12:31-0500 Systolic blood pressure 151 mm[Hg] Krislyn Aberegg PA Work Phone: [facility] 09-03-2022 12:01-0400 Body height 180.34 cm MACHINE DESIGNER-C Aaron Ge MACHINE DESIGNER Work Phone: [facility] 09-03-2022 12:01-0400 Body weight 119.8 kg MACHINE DESIGNER-C Aaron Ge MACHINE DESIGNER Work Phone: [facility] 09-03-2022 10:00-0400 SaO2% (BldA) [Mass fraction] 98 % MACHINE DESIGNER-C Aaron Ge MACHINE DESIGNER Work Phone: [facility] 09-03-2022 09:50-0400 Body temperature 97.9 [degF] MACHINE DESIGNER-C Aaron Ge MACHINE DESIGNER Work Phone: [facility] 09-03-2022 09:50-0400 Diastolic blood pressure 87 mm[Hg] MACHINE DESIGNER-C Aaron Ge MACHINE DESIGNER Work Phone: [facility] 09-03-2022 09:50-0400 Heart rate 98 /min MACHINE DESIGNER-C Aaron Ge MACHINE DESIGNER Work Phone: [facility] 09-03-2022 09:50-0400 Respiratory rate 18 /min MACHINE DESIGNER-C Aaron Ge MACHINE DESIGNER Work Phone: [facility] 09-03-2022 09:50-0400 Systolic blood pressure 142 mm[Hg] MACHINE DESIGNER-C Aaron Ge MACHINE DESIGNER Work Phone: [facility] 09-03-2022 07:05-0400 Inhaled oxygen flow rate 2 L/min MACHINE DESIGNER-C Aaron Ge MACHINE DESIGNER Work Phone: [facility] 09-02-2022 22:18-0400 Body mass index (BMI) [Ratio] 36.8 kg/m2 MACHINE DESIGNER-C Aaron Ge MACHINE DESIGNER Work Phone: [facility] 09-02-2022 21:42-0400 Body temperature 97.8 [degF] [facility] 09-02-2022 21:42-0400 Diastolic blood pressure 78 mm[Hg] [facility] 09-02-2022 21:42-0400 Heart rate 102 /min [facility] 09-02-2022 21:42-0400 Respiratory rate 15 /min [facility] 09-02-2022 21:42-0400 SaO2% (BldA) [Mass fraction] 97 % [facility] 09-02-2022 21:42-0400 Systolic blood pressure 128 mm[Hg] [facility] 09-02-2022 16:31-0400 Body mass index (BMI) [Ratio] 37 kg/m2 [facility] 09-02-2022 16:31-0400 Body weight 120.6 kg [facility] 09-02-2022 15:44-0400 Body height 180.34 cm [facility] 11-25-2020 15:01-0400 Diastolic blood pressure 72 mm[Hg] Lico Zerkle DO Work Phone: [facility] 11-25-2020 15:01-0400 Heart rate 84 /min Lico Qlibrikle DO Work Phone: [facility] 11-25-2020 15:01-0400 Respiratory rate 25 /min Lico Zerkle DO Work Phone: [facility] 11-25-2020 15:01-0400 SaO2% (BldA) [Mass fraction] 97 % Lico Sarah DO Work Phone: [facility] 11-25-2020 15:01-0400 Systolic blood pressure 144 mm[Hg] Lico Sarah DO Work Phone: [facility] 11-25-2020 10:33-0400 Body height 182.9 cm Lico Sarah DO Work Phone: [facility] 11-25-2020 10:33-0400 Body mass index (BMI) [Ratio] 33.91 kg/m2 Lico Sarah DO Work Phone: [facility] 11-25-2020 10:33-0400 Body temperature 98.6 [degF] Lico Sarah DO Work Phone: [facility] 11-25-2020 10:33-0400 Body weight 113.4 kg Lico Sarah DO Work Phone: [facility] Encounters Encounter Date Encounter Type Care Provider Facility Start: 09-05-2024 End: 09-09-2024 ambulatory AARON GE MERCHANDISE [employer] TE[employer]BER - [employer] Facility:[facility] Start: 09-05-2024 End: 09-09-2024 Encounter for general adult medical examination without abnormal findings AARON GE MERCHANDISE [employer] TE[employer] MEMBER - [employer] Facility:[facility] Start: 09-05-2024 End: 09-09-2024 Outreach Lab AARON GE MERCHANDISE FLOW TEAM MEMBER - [employer] C[employer] [facility] Start: 04-27-2024 End: 04-27-2024 ambulatory CARLO HOROWITZ Facility:[place] Start: 04-27-2024 End: 04-27-2024 Patient encounter procedure Bebeto WOLFE Work Phone: [facility] Comment on above: Dental infection (Pr imary Dx) Start: 08-29-2023 End: 08-29-2023 ambulatory AARON GE [facility] Start: 09-03-2022 Non-patient / Non-visit MACHINE DESIGNER-C Gabriela Ge MACHINE DESIGNER Work Phone: [facility] Start: 09-02-2022 End: 09-03-2022 ambulatory Aaron Ge MACHINE DESIGNER Facility:[facility] Start: 09-02-2022 Non-patient / Non-visit MACHINE DESIGNER-C Gabriela Ge MACHINE DESIGNER Work Phone: [facility] Start: 09-02-2022 End: 09-03-2022 Evaluation and management of inpatient [facility] Start: 09-02-2022 End: 09-03-2022 observation encounter MACHINE DESIGNER-C Aaron Ge MACHINE DESIGNER Work Phone: [facility] Work Phone: Start: 06-21-2021 End: 06-21-2021 ambulatory YUMIKO PRYOR Facility: Start: 11-25-2020 End: 11-25-2020 Emergency department patient visit Lico Sarah Work Phone: [facility] Comment on above: Anxiety (Primary Dx) Plan of Treatment Date Care Activity Detail Author Start: 08-27-2033 Urine microalbumin profile DTaP,Tdap,Td Vaccine (8 - Td or Tdap) [facility] Start: 12-31-2023 Covid-19 Vaccine ( season) Covid-19 Vaccine ( season) [facility] Start: 12-31-2023 Influenza [facility] Start: 09-03-2022 Patient discharge [facility] Start: 09-02-2022 Following clinical pathway protocol [facility] Start: 09-02-2022 Assessment of risk of venous thromboembolism [facility] Start: 09-02-2022 Fall prevention [facility] Start: 09-02-2022 Insertion of catheter into peripheral vein [facility] Start: 09-02-2022 Introduction of urinary catheter [facility] Start: 09-02-2022 Measuring intake and output [facility] Start: 09-02-2022 Oxygen therapy [facility] Start: 09-02-2022 Patient referral to dietitian [facility] Start: 09-02-2022 Providing care according to standard [facility] Start: 09-02-2022 Provision of activity privileges [facility] Start: 09-02-2022 Referral to service [facility] Start: 09-02-2022 [facility] Start: 09-02-2022 Verification routine [facility] Start: 09-02-2022 Admission procedure [facility] Start: 12-04-2020 End: 12-04-2020 Patient encounter procedure 12/04/2020 Office Visit Family Medicine Freddy Castañeda, [address] [address] [phone] [facility] Start: 09-13-2015 Anxiety Screening Anxiety Screening [facility] Start: 09-13-2015 Depression Screening Depression Screening [facility] Start: 09-13-2015 Hepatitis C screening Hepatitis C Screening [facility] Start: 09-13-2015 HIV screening HIV Screening [facility] Start: 2012 HPV Vaccine (1 - Male 3-dose series) HPV Vaccine (1 - Male 3-dose series) [facility] Start: 09-13-2011 Peds To Adult Transition Annual Assessment Peds To Adult Transition Annual Assessment [facility] [facility] Start: 2009 Peds To Adult Transition Initial Discussion Peds To Adult Transition Initial Discussion [facility] Patient Education Hypokalemia Dc High Potassium Diet Dc ED Potassium-Rich Foods [facility] Work Phone: Patient referral [facility] Work Phone: Immunizations Immunization Date Immunization Notes Care Provider Fa cili 08-28-2023 tetanus toxoid, redu nash diphtheria toxoid, and acellular pertussis vaccine, adsorbed; Translations: [Boostrix (Tdap)] AARON GE MERCHANDISE FLOW TEAM MEMBER - TIN CUTTER [facility] 03-30-2021 influenza virus vacc ine, unspecified formulation Bebeto Quezada PA Work Phone: [facility] 10-16-2014 meningococcal polysaccharide (groups A, C, Y and W-135) diphtheria toxoid conjugate vaccine (MCV4P) Bebeto Quezada PA Work Phone: [facility] 10-16-2014 varicella virus vaccine Jose Quezada PA Work Phone: [facility] 01-06-2010 meningococcal polysaccharide (groups A, C, Y and W-135) diphtheria toxoid conjugate vaccine (MCV4P) AARON GE MERCH[employer]ISE [employer]OW TEAM MEMBER - [employer]TER [facility] 01-06-2010 Meningococcal, MCV4, unspecified conjugate formulation(groups A, C, Y and W-135) Bebeto Quezada PA Work Phone: [facility] 05-19-2009 influenza virus vacc ine, unspecified formulation Bebeto Quezada PA Work Phone: [facility] 05-19-2009 tetanus toxoid, redu nash diphtheria toxoid, and acellular pertussis vaccine, adsorbed Bebeto Quezada PA Work Phone: [facility] Work Phone: 10-09-2002 diphtheria, tetanus toxoids and acellular pertussis vaccine Bebeto Quezada PA Work Phone: [facility] 10-09-2002 measles, mumps and rubella virus vaccine Bebeto Quezada PA Work Phone: [facility] 10-09-2002 measles/mumps/rubell a virus vaccine AARON GE MERCH[employer]ISE FLOW TEAM MEMBER - [employer] [facility] 10-09-2002 poliovirus vaccine, inactivated Bebeto Quezada PA Work Phone: [facility] 09-09-1999 varicella virus vaccine Jose Quezada PA Work Phone: [facility] 02-10-1999 diphtheria, tetanus toxoids and acellular pertussis vaccine Krislyn Aberegg PA Work Phone: [facility] 02-10-1999 haemophilus influenz ae type b vaccine, HbOC conjugate Krislyn Aberegg PA Work Phone: [facility] 02-10-1999 measles, mumps and rubella virus vaccine Krislyn Aberegg PA Work Phone: [facility] 02-10-1999 measles/mumps/rubell a virus vaccine AARON GE MERCHANDISE FLOW TEAM MEMBER - TIN CUTTER [facility] 02-10-1999 poliovirus vaccine, inactivated Krislyn Aberegg PA Work Phone: [facility] 07-14-1998 hepatitis B pediatri c vaccine AARON FUENTESPKINS MERCHANDISE FLOW TEAM MEMBER - TIN CUTTER [facility] 07-14-1998 hepatitis B vaccine, pediatric or pediatric/adolescent dosage Krislyn Aberegg PA Work Phone: [facility] 04-08-1998 diphtheria, tetanus toxoids and acellular pertussis vaccine Krislyn Aberegg PA Work Phone: [facility] 04-08-1998 haemophilus influenz ae type b vaccine, HbOC conjugate Krislyn Aberegg PA Work Phone: [facility] 01-20-1998 diphtheria, tetanus toxoids and acellular pertussis vaccine Krislyn Aberegg PA Work Phone: [facility] 01-20-1998 haemophilus influenz ae type b vaccine, HbOC conjugate Krislyn Aberegg PA Work Phone: [facility] 01-20-1998 poliovirus vaccine, inactivated Krislyn Aberegg PA Work Phone: [facility] 1997 diphtheria, tetanus toxoids and acellular pertussis vaccine Krislyn Aberegg PA Work Phone: [facility] 1997 haemophilus influenz ae type b vaccine, HbOC conjugate Krislyn Aberegg PA Work Phone: [facility] 1997 poliovirus vaccine, inactivated Bebeto WOLFE Work Phone: [facility] 1997 hepatitis B pediatri c vaccine AARON FUENTESPKINS MERCHANDISE FLOW TEAM MEMBER - TIN CUTTER [facility] hepatitis B vaccine, pediatric or pediatric/adolescent dosage Bebeto WOLFE Work Phone: [facility] 1997 hepatitis B pediatri c vaccine AARON GE MERCHANDISE FLOW TEAM MEMBER - [employer]IN CUTTER [facility] 1997 hepatitis B vaccine, pediatric or pediatric/adolescent dosage Bebeto WOLFE Work Phone: [facility] Payers Date Payer Category Payer Self-pay [id number] 2022 Unknown [id number] 2021 Unknown [id number] 2020 Unknown [facility] [id number] 2020-Present [id number] 2020 Unknown [id number] 1997 Unknown [id number] 1997 Unknown [id number] Private Health Insurance [facility] [id number] Unknown [id number] Unknown [id number] Unknown [id number] Unknown [id number] Social History Date Type Detail Facility Start: 11-25-2020 End: 09-03-2024 Tobacco smoking status NHIS Never smoker [facility] [address] Comment on above: Minimal smoke exposu re Start: 11-25-2020 End: 04-27-2024 Tobacco use and exposure Never used [facility] Start: 11-25-2020 Alcohol intake Ex-drinker (finding) [facility] Start: 11-25-2020 Alcohol Comment socially [facility] Start: 1995 Sex Assigned At Not on file [facility] Exposure to SARS-CoV -2 (event) Not sure [facility] Start: 1995 Sex Assigned At Male C [facility] Start: 1995 End: 04-08-2020 Sex Assigned At [facility] Start: 09-02-2022 End: 09-02-2022 Tobacco smoking status NHIS Unknown if ever smoked [facility] Start: 06-18-2018 With Family [facility] History of tobacco use Passive smoker [facility] Start: 04-27-2024 Alcoholic beverage intake Not Asked [facility] Start: 04-08-2020 End: 04-27-2024 History of Social function [facility] National Score (1-10 0), lower number is lower risk Not on file [facility] Start: 04-27-2024 Tobacco Comment Mom smokes [facility] Sexual Orientation [facility] shalini [facility] Start: 10-24-2018 Sex Male (finding) [facility] Medical Equipment Procedure Code Equipment Code Equipment Original Text Equi pment Identifier Dates Procedure Implant ([id number]) Goals Date Patient Goal Desired Activity /State Functional Status Date Assessment Result Facility 09-03-2022 Functional status Bedrest [facility] Work Phone: Mental Status Date Assessment Result Facility 09-03-2022 Cognitive function Voice/Name [facility] Work Phone: 09-02-2022 Cognitive function Level Of Cons ciousness Awake;Alert;Appropriate;Follow s Commands [facility] Work Phone: Clinical Notes 11-25-2020 to 04-27-2024 Bebeto Quezada PA - 04/27/2024 12:41 PM EST Note Date & Type Note Facility 04-27-2024 Note HNO ID: [id number] Author: BEBETO QUEZADA PA Service: ? Author Type: Physician Shift Production Associate Type: Progress Notes Filed: 04/27/2024 12:43 Note Text: This note was created using [employer]. Subjective Dariusz Monahan is a 28 year old male. HPI 28-year-old male presents for left sided dental pain. Patient states that he has a broken left lower tooth which just started hurting about 2 days ago. He notes some swelling around the area. No drainage. No fevers. States he just does not feel well. He does not have a dentist. No difficulty breathing or swallowing. Has taken Tylenol Motrin with minimal improvement. No other complaint. 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, legs cramps and paralysis PMH - PAST MEDICAL HISTORY OF VSD(2 small), closed 10/1997 PMH - PAST MEDICAL HISTORY OF heart murmur - resolved @ 2months of age PMH - PAST MEDICAL HISTORY OF HSP - at 5yrs of age approximately PMH - PAST MEDICAL HISTORY OF 01/02/03 Color Vision - Normal PAST SURGICAL HISTORY Procedure Laterality Date ADENOIDECTOMY PRIMARY Adenoidectomy MYRINGOTOMY ASPIRAND/EUSTACHIAN TUBE [facility] ANES 2003 Myringotomy/tubes MYRINGOTOMY ASPIRAND/EUSTACHIAN TUBE NFLTJ ANES left 11/03 Myringotomy/tubes ALLERGIES Sulfa Drugs [Sulfa (Sulfonamide Antibiotics)] MEDICATIONS amoxicillin (AMOXIL) 875 mg tablet Take 1 tablet by mouth two times a day for 5 days. meclizine (ANTIVERT) 25 mg tab Take 1 tablet by mouth three times daily as needed (dizziness). (Patient not taking: Reported on 06/18/2021 ) benzonatate (TESSALON PERLES) 100 mg capsule Take 1 capsule by mouth three times daily as needed for Cough. (Patient not taking: Reported on 06/18/2021 ) pseudoephedrine (SUDAFED) 30 mg tablet Take 2 tablets by mouth every 6 hours as needed. (Patient not taking: Reported on 06/18/2021 ) cyclobenzaprine (FLEXERIL) 10 mg tablet Take 1 tablet by mouth three times daily as needed. sertraline (ZOLOFT) 25 mg tablet Take 1 tablet by mouth once daily. fluticasone (FLONASE) 50 mcg/actuation nasal spray Use 2 Sprays in each nostril once daily. (Patient not taking: Reported on 06/18/2021 ) albuterol HFA (VENTOLIN HFA) 90 mcg/actuation inhaler Inhale 2 Puffs as instructed every 4 hours as needed for Wheezing/Shortness of Breath. multivitamins(CHEWABLE MULTI VITAMIN TAB) Take one(1) tablet daily. (Patient not taking: ) FAMILY HISTORY Problem Relation Age of Onset Colon Cancer Maternal Grandmother Cancer Maternal Grandmother paternal side Heart Maternal Grandmother maternal side Diabetes Maternal Grandmother maternal side Social History Tobacco Use Smoking status: Never Passive exposure: Yes Smokeless tobacco: Never Tobacco comments: Mom smokes Review of Systems Constitutional: Negative for chills and fever. HENT: Positive for dental problem. Negative for congestion and sore throat. Respiratory: Negative for cough and shortness of breath. Gastrointestinal: Negative for diarrhea and vomiting. Objective BP 151/87 Pulse 62 Temp 36.8 ?C (98.3 ?F) (Right Tympanic) Resp 16 Wt 113.2 kg (249 lb 9 oz) SpO2 99% Physical Exam Vitals and nursing note reviewed. Constitutional: General: He is not in acute distress. Appearance: Normal appearance. He is not toxic-appearing. HENT: Right Ear: Tympanic membrane and ear canal normal. Left Ear: Tympanic membrane and ear canal normal. Nose: Nose normal. Mouth/Throat: Mouth: Mucous membranes are moist. Dentition: Dental tenderness, gingival swelling and dental caries present. Pharynx: Uvula midline. Comments: Patient has tenderness over tooth #18. Broken tooth #18. Gingival swelling and erythema noted around this tooth. He does have some purulent drainage along the gumline, but no abscess felt. No tongue or floor of mouth swelling. Handling secretions. Uvula midline. Eyes: Conjunctiva/sclera: Conjunctivae normal. Cardiovascular: Rate and Rhythm: Normal rate and regular rhythm. Pulmonary: Effort: Pulmonary effort is normal. Breath sounds: Normal breath sounds. Skin: General: Skin is warm and dry. Neurological: Mental Status: He is alert. Assessment and Plan ASSESSMENT/PLAN: 1. Dental infection - ICD9: 522.4, ICD10: K04.7 -Rx amoxicillin -Schedule follow-up with dentistry this week -Tylenol/Motrin for pain Diagnosis and treatment plan were discussed and questions were answered to the patient's satisfaction. Pt acknowledged understanding of concepts and follow up plan. Specific signs and symptoms that would indicate the need for higher level of care were discussed in detail warranting prompt ER evaluation. AIDEN Gabriel [facility] 04-27-2024 History of Present illness Narrative This note was created using [employer]. Subjective Dariusz Monahan is a 28 year old male. HPI 28-year-old male presents for left sided dental pain. Patient states that he has a broken left lower tooth which just started hurting about 2 days ago. He notes some swelling around the area. No drainage. No fevers. States he just does not feel well. He does not have a dentist. No difficulty breathing or swallowing. Has taken Tylenol Motrin with minimal improvement. No other complaint. 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, legs cramps and paralysis PMH - PAST MEDICAL HISTORY OF VSD(2 small), closed 10/1997 PMH - PAST MEDICAL HISTORY OF heart murmur - resolved @ 2months of age PMH - PAST MEDICAL HISTORY OF HSP - at 5yrs of age approximately PMH - PAST MEDICAL HISTORY OF 01/02/03 Color Vision - Normal PAST SURGICAL HISTORY Procedure Laterality Date ADENOIDECTOMY PRIMARY <AGE 14 11/03 Adenoidectomy MYRINGOTOMY ASPIR&/EUSTACHIAN TUBE [facility] ANES 2002 Myringotomy/tubes MYRINGOTOMY ASPIR&/EUSTACHIAN TUBE [facility] ANES left 11/03 Myringotomy/tubes ALLERGIES Sulfa Drugs [Sulfa (Sulfonamide Antibiotics)] MEDICATIONS amoxicillin (AMOXIL) 875 mg tablet Take 1 tablet by mouth two times a day for 5 days. meclizine (ANTIVERT) 25 mg tab Take 1 tablet by mouth three times daily as needed (dizziness). (Patient not taking: Reported on 06/18/2021 ) benzonatate (TESSALON PERLES) 100 mg capsule Take 1 capsule by mouth three times daily as needed for Cough. (Patient not taking: Reported on 06/18/2021 ) pseudoephedrine (SUDAFED) 30 mg tablet Take 2 tablets by mouth every 6 hours as needed. (Patient not taking: Reported on 06/18/2021 ) cyclobenzaprine (FLEXERIL) 10 mg tablet Take 1 tablet by mouth three times daily as needed. sertraline (ZOLOFT) 25 mg tablet Take 1 tablet by mouth once daily. fluticasone (FLONASE) 50 mcg/actuation nasal spray Use 2 Sprays in each nostril once daily. (Patient not taking: Reported on 06/18/2021 ) albuterol HFA (VENTOLIN HFA) 90 mcg/actuation inhaler Inhale 2 Puffs as instructed every 4 hours as needed for Wheezing/Shortness of Breath. multivitamins(CHEWABLE MULTI VITAMIN TAB) Take one(1) tablet daily. (Patient not taking: ) FAMILY HISTORY Problem Relation Age of Onset Colon Cancer Maternal Grandmother Cancer Maternal Grandmother paternal side Heart Maternal Grandmother maternal side Diabetes Maternal Grandmother maternal side Social History Tobacco Use Smoking status: Never Passive exposure: Yes Smokeless tobacco: Never Tobacco comments: Mom smokes Review of Systems Constitutional: Negative for chills and fever. HENT: Positive for dental problem. Negative for congestion and sore throat. Respiratory: Negative for cough and shortness of breath. Gastrointestinal: Negative for diarrhea and vomiting. Objective BP 151/87 Pulse 62 Temp 36.8 C (98.3 F) (Right Tympanic) Resp 16 Wt 113.2 kg (249 lb 9 oz) SpO2 99% Physical Exam Vitals and nursing note reviewed. Constitutional: General: He is not in acute distress. Appearance: Normal appearance. He is not toxic-appearing. HENT: Right Ear: Tympanic membrane and ear canal normal. Left Ear: Tympanic membrane and ear canal normal. Nose: Nose normal. Mouth/Throat: Mouth: Mucous membranes are moist. Dentition: Dental tenderness, gingival swelling and dental caries present. Pharynx: Uvula midline. Comments: Patient has tenderness over tooth #18. Broken tooth #18. Gingival swelling and erythema noted around this tooth. He does have some purulent drainage along the gumline, but no abscess felt. No tongue or floor of mouth swelling. Handling secretions. Uvula midline. Eyes: Conjunctiva/sclera: Conjunctivae normal. Cardiovascular: Rate and Rhythm: Normal rate and regular rhythm. Pulmonary: Effort: Pulmonary effort is normal. Breath sounds: Normal breath sounds. Skin: General: Skin is warm and dry. Neurological: Mental Status: He is alert. Assessment and Plan ASSESSMENT/PLAN: 1. Dental infection - ICD9: 522.4, ICD10: K04.7 -Rx amoxicillin -Schedule follow-up with dentistry this week -Tylenol/Motrin for pain Diagnosis and treatment plan were discussed and questions were answered to the patient's satisfaction. Pt acknowledged understanding of concepts and follow up plan. Specific signs and symptoms that would indicate the need for higher level of care were discussed in detail warranting prompt ER evaluation. AIDEN Gabriel documented in this encounter [facility] 09-03-2022 Note [facility] Medical Records Department [address] [place] [address] Discharge Summary 09/03/22 1317 MR#: [id number] Acct: [id number] Name: DARIUSZ MONAHAN Rep #: [id number] : 1995 26 From: Tri Ramos MD PCP: ROMMEL Starks Status:ADM PRITI Location: [place] [address] Providers Date of Admission: 09/02/22 Date of Discharge: 09/03/22 Primary Care Physician: Aaron Ge, MACHINE DESIGNER-C Reason For Visit: HYPOKALEMIA Diagnosis Discharge Diagnosis (1) Acute hypokalemia: Status: Acute Code(s): E87.6 - Hypokalemia Medications at Discharge Home Medications potassium chloride 40 mEq/15 mL oral liquid 40 meq (15 mL) PO DAILY #473 mL 09/03/22 Hospital Course Operations None Procedures None Summary of Care Provided Minutes Spent on Discharge: 45 Hospital Course: Patient is a 26-year-old male with a past medical history as outlined which includes hereditary hypokalemic. Of paralysis with records noting noncompliance with his potassium supplementation. He was admitted through the ED on 09/02/2022 with a complaint of feeling weak which was worsened with activity. He had given himself 60 mEq of potassium on the day of presentation but said his symptoms did not improve. He had had a recent upper respiratory illness as well. On admission his magnesium was 2 and potassium was 2.1. Urinalysis showed no evidence of UTI and total CPK was 318. EKG showed no acute ST changes. 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 His potassium was aggressively supplemented both orally and IV. Potassium came up to 4.8 at time of discharge. He was discharged with p.o. potassium chloride 40 mEq daily in liquid form as this was his preference. He is follow-up with his primary care doctor and counseled to be compliant with his potassium supplementation. Patient seen and examined prior to discharge. He had no complaints and had an uneventful night. Review of systems otherwise negative. Labs and vitals reviewed. Home medication reviewed and reconciled. Physical Exam Const alert, oriented x3 and no apparent distress General Appearance: cooperative, comfortable and well developed Orientation / Consciousness: awake Exam Limitations: no limitations HEENT normocephalic, head/scalp atraumatic and moist oral mucous membranes Mouth: oral and palatal mucosa normal Eyes PERRL, EOMs intact bilaterally and conjunctivae normal Neck no lymphadenopathy and supple Resp normal respiratory effort, no retractions, no use of accessory muscles and clear to auscultation bilaterally Cardio regular rate, regular rhythm, S1 normal heart sound, S2 normal heart sound and no murmurs GI normal to inspection, nondistended, normoactive bowel sounds, soft to palpation, non-tender and non- distended Extremity normal to inspection, full ROM and no clubbing, cyanosis or edema Skin no rashes or lesions noted, no wounds and skin turgor normal Neuro oriented x3, CN's II-XII intact bilaterally, moves all extremities and no focal motor deficits Sensorium / Orientation: awake and alert Speech: speech normal Motor Exam: strength 5/5 throughout Psych affect normal Weight / BMI Weight Weight: 264 lb 1.82 oz Body Mass Index (BMI) 36.8 ABG / Lab / Microbiology Data Result Diagrams: 09/03/22 07:11 09/03/22 12:08 Laboratory: Laboratory Results - last 24 hr 09/02/22 16:48: WBC 11.1 H, RBC 5.42, Hgb 15.9, Hct 45.6, MCV 84.1, MCH 29.3, MCHC 34.9, RDW Std Deviation 34.7 L, RDW Coeff of Darian 11.6, Plt Count 301, MPV 9.7, Immature Gran % (Auto) 0.400, Neut % (Auto) 72.1 H, Lymph % (Auto) 19.7, [place] % (Auto) 6.3, Eos % (Auto) 1.1, Baso % (Auto) 0.4, Absolute Neuts (auto) 8.0 H, Absolute Lymphs (auto) 2.20, Nucleated RBC % 0 09/02/22 16:48: Sodium 143, Potassium 2.1 L*, Chloride 109 H, Carbon Dioxide 26.0, Anion Gap 8, BUN 13, Creatinine 1.08, Estim Creat Clear Calc 112.33, Est GFR (MDRD) Af Amer 107, Est GFR (MDRD) Non- Af 89, BUN/Creatinine Ratio 12.0, Glucose 114 H, Calcium 9.0, Magnesium 2.0, Total Bilirubin 0.40, AST 21, ALT 31, Alkaline Phosphatase 52, Total Creatine Kinase 318 H, Total Protein 7.1, Albumin 4.0, Globulin 3.1, Albumin/Globulin Ratio 1.3 09/02/22 17:19: Urine Color Yellow, Urine Clarity Clear, Urine pH 5.0, Ur Specific Diamond 1.025, Urine Protein 15 H, Urine Glucose (UA) Normal, Urine Ketones 5 H, Urine Occult Blood 10 H, Urine Nitrite Negative, Urine Bilirubin Negative, Urine Urobilinogen Normal, Ur Leukocyte Esterase 25 H, Urine RBC 0 SEEN, Urine WBC 0 SEEN, Ur Squamous Epith Cells 0 SEEN, Urine Bacteria 0 SEEN, Urine Mucus 0 SEEN 09/02/22 22:52: Sodium 143, Potassium 2.2 L*, Chloride 110 H, Carbon Dioxide 23.0, Anion Gap 10, BUN 14, Creatinine 1.16, Estim Creat Clear Calc 104.58, Est GFR (MDRD) Af Amer 99, Est (more content not included)... [facility] 09-03-2022 History and physi kenya note Note Date/Time September 02, 2022 9:45pm [facility] Medical Records Department [address] [place] [address] H&P Exam - Hospitalist 09/02/222140 MR#: [id number] Acct: [id number] Name: DARIUSZ MONAHAN Rep #:[id number] : 1995 26 From: Monica Oswald MD PCP: ROMMEL Starks tus:ADM PIRTI Location: [place] [address] HPI - General General Date of Admission: 09/02/22 Date of Service: 09/02/22 Chief Complaint: Weakness. HPI Narrative The patient is a 26 y/o M w/ PMHx: Obesity, Hereditary Hypokalemic periodic paralysis with prior records noting noncompliance with his K supplementation [facility] ED on 09/02/22 with history of self administration of 60 mill equivalents of potassium on day of presentation with a prescription ongoing which is liquid he notes however in the last 24 hours he reports feeling more weak, worse with activity with recent upper respiratory type illness the week prior although the symptoms seem to been improving but given his mild ability prompted ED evaluation. Work-up in the ED included T96.5, heart rate initially 98 with most recent repeat 107, BP initially 177/105 with most recent repeat 149/96, respiratory rate 18, 100% room air, CBC with WC 11.1 coming with 15.9, platelet 301 with mild left shift, CMP with potassium 2.1, chloride 109, [id number], calcium 9.0, magnesium 2.0, total creatinine kinase 318, urinalysis with evidence of elevated specific gravity 1.025, protein 15, ketone 5, occult blood 10, leukocyte Estrace 25, negative nitrite, no evidence of UTI. EKG with sinus rhythm with questionable possible small U waves with no acute evidence of ischemia. In the ED patient initiated on potassium 40 mill equivalent IV however he was only able to tolerate 2 bags and was administered then potassium chloride 40 mill equivalent p.o. x1 but complained of significant muscle cramps and concern for catalyst of further paralysis therefore the IV was discontinued and patient was administered Norflex 60 mg IM x1 as well as 1 L normal saline. Patient was offered oral supplementation with discharge to home however felt he was too weak therefore planned admission. [facility], [facility] Medical History Hypokalemic periodic paralysis Obesity Home Medications potassium chloride 20 mEq/15 mL oral liquid 20 meq PO BID PRN Hypokalemia 09/02/22 [History Last Taken Unknown] Allergy/AdvReac Type Severity Reaction Status Date / Time Sulfa (Sulfonamide Allergy Shortness Verified 09/02/22 16:31 Antibiotics) of breath Family History (Updated 09/02/22 @ 22:[address] Monica Oswald MD) Father Familial hypokalemic periodic paralysis Hypertension Brother Familial hypokalemic periodic paralysis Hypertension Mother Hypothyroidism Surgical History History of adenoidectomy Social History (Updated 09/02/22 @ 22:[address] Monica Oswald MD) household members: significant other and children Smoking Status: Never smoker alcohol intake: current alcohol intake frequency: holidays/special occasions only substance use type: does not use ROS ROS Narrative Admission Review of Systems: CONSTITUTIONAL: No weight loss, fever, chills, + weakness or fatigue. HEENT: Eyes: No visual loss, blurred vision, double vision or yellow sclerae. Ears, Nose, Throat: No hearing loss, sneezing, congestion, runny nose or sore throat. SKIN: No rash or itching, lesions, wounds. CARDIOVASCULAR: No chest pain, chest pressure or chest discomfort, palpitations,edema, orthopnea, syncopal events. RESPIRATORY: No shortness of breath, cough or sputum, wheezing, hemoptysis. GASTROINTESTINAL: No anorexia, nausea, vomiting or diarrhea, abdominal pain, melena, BRBPR. GENITOURINARY: No dysuria, frequency, urgency or retention. NEUROLOGICAL: + Episodes of paralysis. No headache, dizziness, syncope, paralysis, ataxia, numbness or tingling in the extremities, focal weakness, change in bowel or bladder control, seizure. MUSCULOSKELETAL: + muscle, back pain, joint pain or stiffness. HEMATOLOGIC: No anemia, bleeding or bruising. LYMPHATICS: No enlarged nodes. No history of splenectomy. PSYCHIATRIC: No history of depression or anxiety. ENDOCRINOLOGIC: No reports of sweating, cold or heat intolerance. No polyuria orpolydipsia. ALLERGIES: No history of asthma, hives, eczema or rhinitis. Vital Signs Vital Signs Vital Signs: 09/02/22 15:44 09/02/22 16:32 09/02/22 16:32 Temperature 96.5 F L Temperature Source Temporal Pulse Rate 98 92 Respiratory Rate 18 18 Respiratory Effort Normal Non-Labored Respiratory Pattern Normal Blood Pressure 177/105 H 144/68 H Blood Pressure Mean 129 93 Pulse Ox 100 98 Oxygen Delivery Method Room Air Room Air 09/02/22 18:18 09/02/22 20:09 Temperature Temperature Source Pulse Rate 92 107 H Respiratory Rate 17 16 Respiratory Effort Respiratory Pattern Blood Pressure 136/105 H 149/96 H Blood Pressure Mean 115 113 Pulse Ox 98 96 Oxygen Delivery Method Room Air Room Air Weight Weight: 265 lb 14.04 oz Body Mass Index (BMI) 37.0 Physical Exam Narrative Physical Examination: General: Awake, alert, oriented x 3 and cooperative, seated upright in ED bed, fatigued appearing otherwise no acute distress. Skin: Normal color, normal turgor, no icterus, no cyanosis. HEENT: AT/NC, EOMI, PERRLA, MMM, no carotid bruits or JVD noted. Lungs: CTA bilaterally, moderate effort, mild decrease BL bases, no rales, ronchi or wheezing. Heart: Currently regular rate and rhythm; no gallop, rub audible. Abdomen: Soft, obese, NTTP, ND, normal BS, no HSM. Extremities: No cyanosis, clubbing, or edema. Neurological: Patient awake, alert, oriented as noted, cognitive function intact; pupils equally reactive to light and accommodation, cranial nerves II-XII grossly normal, moving all 4 extremities, no focal deficits, strength moderately to severely global decrease secondary to acute hyperkalemic presentation, needs assistance getting his legs up even onto the bed because of his generalized weakness. Psychiatric: Affect appears fatigued otherwise normal, no acute evidence of depressive or anxiety feelings. Results Lab / Micro Data Result Diagrams: 09/02/22 16:48 09/02/22 16:48 Labs: Laboratory Results - last 24 hr 09/02/22 16:48: WBC 11.1 H, RBC 5.42, Hgb 15.9, Hct 45.6, MCV 84.1, MCH 29.3, MCHC 34.9, RDW Std Deviation 34.7 L, RDW Coeff of Darian 11.6, Plt Count 301, MPV 9.7, Immature Gran % (Auto) 0.400, Neut % (Auto) 72.1 H, Lymph % (Auto) 19.7, Furnas % (Auto) 6.3, Eos % (Auto) 1.1, Baso % (Auto) 0.4, Absolute Neuts (auto) 8.0 H, Absolute Lymphs (auto) 2.20, Nucleated RBC % 0 09/02/22 16:48: Sodium 143, Potassium 2.1 L*, Chloride 109 H, Carbon Dioxide 26.0, Anion Gap 8, BUN 13, Creatinine 1.08, Estim Creat Clear Calc 112.33, Est GFR (MDRD) Af Amer 107, Est GFR (MDRD) Non-Af 89, BUN/Creatinine Ratio 12.0, Glucose 114 H, Calcium 9.0, Magnesium 2.0, Total Bilirubin 0.40, AST 21, ALT 31, Alkaline Phosphatase 52, Total Creatine Kinase 318 H, Total Protein 7.1, Albumin4.0, Globulin 3.1, Albumin/Globulin Ratio 1.3 09/02/22 17:19: Urine Color Yellow, Urine Clarity Clear, Urine pH 5.0, Ur Specific Diamond 1.025, Urine Protein 15 H, Urine Glucose (UA) Normal, Urine Ketones 5 H, Urine Occult Blood 10 H, Urine Nitrite Negative, Urine Bilirubin Negative, Urine Urobilinogen Normal, Ur Leukocyte Esterase 25 H, Urine RBC 0 SEEN, Urine WBC 0 SEEN, Ur Squamous Epith Cells 0 SEEN, Urine Bacteria 0 SEEN, Urine Mucus 0 SEEN Assessment & Plan Assessment/Plan (1) Acute hypokalemia: PLAN: Plan The patient is a 26 y/o M w/ PMHx: Obesity, Hereditary Hypokalemic periodic paralysis with prior records noting noncompliance with his K supplementation whop[facility] ED on 09/02/22 with history of self administration of 60 mill equivalents of potassium on day of presentation with a prescription ongoing which is liquid he notes however in the last 24 hours he reports feeling more weak, worse with activity. #1. Hereditary Hypokalemic Periodic Paralysis with Acute Hypokalemia: Will admit to PCU, maintain on telemetry, K upon admission 2.1, mag normal, Ca++ normal, will continue oral aggressive supplementation, discussed again potentialfor IVFs w/ K and patient has declined attempt at this time, noting his paralysis worsens with any IV infusion attempts with only 20 mEq successfully administered IV in the ED and 60 mEq oral following, maintain on fall precautions, consult nutrition for high K item education w/ low carb, trend K levels. #2. Elevated BP without hypertensive diagnosis: BP upon presentation elevated above goal, no specific prior hypertensive history, will continue to monitor andif patient diagnosis consistent with hypertension given his underlying hereditary hypokalemic periodic paralysis diagnosis would benefit from consideration of potentially spironolactone usage, as needed IV hydralazine in interim. #3. Obesity: Weight loss and lifestyle changes encouraged. #4. DVT prophylaxis: Low risk. Admission Evaluation Time spent evaluating chart, patient history, patient evaluation, care planning and discussion with specialists: 55 minutes. Charges/Coding Visit Charges Inpatient E&M: 05786 Init Hosp L2 09/02/222235 <Electronically signed by Monica Oswald MD> Cosigner Signature (if applicable): CC: ROMMEL Ge; Dr. Monica Oswald MD~ Signed ADDENDUM by Dr. Monica Oswald MD on 09/02/22 at 2236 Addendum Following discussions with his mother he notes to staff auditor that he is now willing to attempt IV supplementation. Will obtain BMP now and will adjust IV regimen as needed pending toleration and repeat levels. 09/02/222235<Electronically signed by Monica Oswald MD> Cosigner Signature (if applicable): cc: ROMMEL Ge; Dr. Monica Oswald MD ~* Signed [facility] Work Phone: [phone]) 817-727705-05-[address] Herrera [facility] September 02, 2022 9:36pm Note Date/Time September 02, 2022 4:50pm [facility] Medical Records Department [address] [place] [address] Emergency Department Summary 09/02/22 MR#: [id number] Acct: [id number] Name: DARIUSZ MONAHAN Rep #:[id number] : 1995 26 From: Dionet CARNEY PCP: ROMMEL Starks Sta tus:REG ER Location: ED HPI <ROMMEL Rodriguez - Last Filed: 09/02/22 20:54> History of Present Illness Chief Complaint: Abn Labs Narrative Narrative: Patient is a 26-year-old male with history of hypokalemia that is so severe thathe has difficulty moving his body. Patient has had this for several years. He does have a PCP. Patient states that he took 60 mill equivalents of potassium today, he does have a prescription for this which is liquid. Patient states forthe last 24 hours has been feeling more weak, more weakness while walking and heis concerned that this is happening again. Patient denies any chest pain. Patient states he was sick last week however he is getting over this. He deniesany chest pain, shortness of breath. He denies any headache. PFSH <ROMMEL Rodriguez - Last Filed: 09/02/22 20:54> [facility], [facility] Medical History (Updated 09/02/22 @ 21:[address] Monica Oswald MD) Hypokalemic periodic paralysis Home Medications potassium chloride 20 mEq tablet,extended release(part/cryst) 2 tab PO BID #20 tabs 06/18/18 [Rx Last Taken Unknown] Allergy/AdvReac Type Severity Reaction Status Date / Time Sulfa (Sulfonamide Allergy Shortness Verified 09/02/22 16:31 Antibiotics) of breath Surgical History (Updated 09/02/22 @ 16:31 by Viviane Guerrero) History of adenoidectomy Social History Smoking Status: Never smoker ROS <ROMMEL Rodriguez - Last Filed: 09/02/22 20:54> ROS ED ROS Narrative Constitutional: Negative for fever, chills, weight loss. Positive for weakness Eyes: Negative for vision loss, vision change, double vision ENT: Negative for any sore throat, ear pain, congestion Cardiovascular: Negative for any chest pain, tightness, palpitations Respiratory: Negative for any cough, sputum production, hemoptysis, dyspnea, dyspnea on exertion, orthopnea Gastrointestinal: Negative for any abdominal pain, nausea, vomiting, diarrhea, constipation, blood in stool, blood in vomit : Negative for any urinary frequency, dysuria, retention, blood in urine Muscle skeletal: Negative for any muscle joint pain, stiffness, arthralgias, neck pain, back pain. Positive for myalgias, feeling of muscle weakness Neurological: Negative for any headache, syncope, numbness or tingling, dizziness Skin: Negative for any rashes, lumps, itching, abrasions, lacerations Psychiatric: Negative for any depression, anxiety, stress, suicidal ideation, homicidal ideation Hematologic: Negative for any easy bruising, excessive bruising, easy bleeding Allergies: Negative for any eczema, hives, rash EXAM <ROMMEL Rodriguez - Last Filed: 09/02/22 20:54> Physical Exam Narrative Exam Narrative: Vital signs reviewed. HEET: Head normocephalic atraumatic, TMs clear bilaterally. Posterior pharynx is clear, moist mucous membranes. Nares clear bilaterally. Neck: Supple with no lymphadenopathy or tenderness. No signs of meningismus, negative jolt sign. Cardiac: Regular rate and rhythm no murmurs gallops or rubs, equal peripheral pulses bilaterally. Respiratory: Lungs clear to auscultation bilaterally. No chest tenderness. Abdomen: Soft, nontender, nondistended. No abdominal bruit or pulsatile masses. No hepatosplenomegaly Extremities: No peripheral edema, no signs of gross trauma or deformity. Activefull range of motion of all extremities. Patient appears to be moving all extremities. Neuro: Cranial nerves II through XII intact, no focal neurological deficits. Negative Chvostek Sign, equal patellar reflexes Skin: Clean dry and intact with no rash, purpura, petechiae, vesicles or pustules. Backs/flank: No CVA tenderness, no midline spinal tenderness, no deformity. Psych: Normal mood and affect. No SI, HI or acute psychosis. Const Vital Signs: 09/02/22 15:44 09/02/22 16:32 09/02/22 16:32 Temperature 96.5 F L Temperature Source Temporal Pulse Rate 98 92 Respiratory Rate 18 18 Respiratory Effort Normal Non-Labored Respiratory Pattern Normal Blood Pressure 177/105 H 144/68 H Blood Pressure Mean 129 93 Pulse Ox 100 98 Oxygen Delivery Method Room Air Room Air 09/02/22 18:18 09/02/22 20:09 Temperature Temperature Source Pulse Rate 92 107 H Respiratory Rate 17 16 Respiratory Effort Respiratory Pattern Blood Pressure 136/105 H 149/96 H Blood Pressure Mean 115 113 Pulse Ox 98 96 Oxygen Delivery Method Room Air Room Air Positive well nourished and well developed General Appearance ED: well developed <Dr. Carlyle Herrera MD - Last Filed: 09/02/22 21:36> Physical Exam Const Vital Signs: 09/02/22 15:44 09/02/22 16:32 09/02/22 16:32 Temperature 96.5 F L Temperature Source Temporal Pulse Rate 98 92 Respiratory Rate 18 18 Respiratory Effort Normal Non-Labored Respiratory Pattern Normal Blood Pressure 177/105 H 144/68 H Blood Pressure Mean 129 93 Pulse Ox 100 98 Oxygen Delivery Method Room Air Room Air 09/02/22 18:18 09/02/22 20:09 Temperature Temperature Source Pulse Rate 92 107 H Respiratory Rate 17 16 Respiratory Effort Respiratory Pattern Blood Pressure 136/105 H 149/96 H Blood Pressure Mean 115 113 Pulse Ox 98 96 Oxygen Delivery Method Room Air Room Air MDM <ROMMEL Rodriguez - Last Filed: 09/02/22 20:54> MDM Lab Data Labs: Laboratory Results - last 24 hr 09/02/22 09/02/22 09/02/22 16:48 16:48 17:19 WBC 11.1 H RBC 5.42 Hgb 15.9 Hct 45.6 MCV 84.1 MCH 29.3 MCHC 34.9 RDW Std Deviation 34.7 L RDW Coeff of Darian 11.6 Plt Count 301 MPV 9.7 Immature Gran % (Auto) 0.400 Neut % (Auto) 72.1 H Lymph % (Auto) 19.7 Furnas % (Auto) 6.3 Eos % (Auto) 1.1 Baso % (Auto) 0.4 Absolute Neuts (auto) 8.0 H Absolute Lymphs (auto) 2.20 Nucleated RBC % 0 Sodium 143 Potassium 2.1 L* Chloride 109 H Carbon Dioxide 26.0 Anion Gap 8 BUN 13 Creatinine 1.08 Estim Creat Clear Calc 112.33 Est GFR (MDRD) Af Amer 107 Est GFR (MDRD) Non-Af 89 BUN/Creatinine Ratio 12.0 Glucose 114 H Calcium 9.0 Magnesium 2.0 Total Bilirubin 0.40 AST 21 ALT 31 Alkaline Phosphatase 52 Total Creatine Kinase 318 H Total Protein 7.1 Albumin 4.0 Globulin 3.1 Albumin/Globulin Ratio 1.3 Urine Color Yellow Urine Clarity Clear Urine pH 5.0 Ur Specific Diamond 1.025 Urine Protein 15 H Urine Glucose (UA) Normal Urine Ketones 5 H Urine Occult Blood 10 H Urine Nitrite Negative Urine Bilirubin Negative Urine Urobilinogen Normal Ur Leukocyte Esterase 25 H Urine RBC 0 SEEN Urine WBC 0 SEEN Ur Squamous Epith Cells 0 SEEN Urine Bacteria 0 SEEN Urine Mucus 0 SEEN EKG Normal sinus rhythm: Attestation: I personally reviewed and interpreted this EKG as follows: Comments: Normal sinus rhythm with sinus arrhythmia, rate of 87 bpm, OR 156 ms, QRS duration 90 ms, no acute ST elevation, no acute infarct noted. Treatment and Re-Evaluation :: Patient presents to the emergency department with complaints of low potassium, muscle weakness. He does have a long history of this. Patient was seen here [id number] when his potassium was 2.7, he received 20 mill equivalents of IV potassiumfelt better and was discharged. Patient appears generally well, vital signs arestable. Patient's EKG was unremarkable. Patient's laboratory values showed a critical low potassium of 2.1, magnesium was unremarkable, remainder the chemistries were unremarkable. Patient CBC shows a leukocytosis white blood count 11.1. At this time, the patient will receive 40 mill equivalents of IV potassium. The patient mentions that he does not want IV potassium because it makes him paralyzed he would rather have oral liquid potassium. We did have a long conversation, the patient is still unsure if he wants to be admitted. The patient will receive IV potassium and half the rate, this will be over 8 hours. Time was roughly 2044, the patient is tolerating IV potassium well. The patienthas been receiving IV potassium for 2 hours. It is running at half the normal rate secondary to the patient being concerned that the IV form of potassium willcause him to have paralysis. <Dr. Carlyle Herrera MD - Last Filed: 09/02/22 21:36> [facility] Lab Data Attestation: I reviewed the patient's lab results. Labs: Laboratory Results - last 24 hr 09/02/22 09/02/22 09/02/22 16:48 16:48 17:19 WBC 11.1 H RBC 5.42 Hgb 15.9 Hct 45.6 MCV 84.1 MCH 29.3 MCHC 34.9 RDW Std Deviation 34.7 L RDW Coeff of Darian 11.6 Plt Count 301 MPV 9.7 Immature Gran % (Auto) 0.400 Neut % (Auto) 72.1 H Lymph % (Auto) 19.7 Furnas % (Auto) 6.3 Eos % (Auto) 1.1 Baso % (Auto) 0.4 Absolute Neuts (auto) 8.0 H Absolute Lymphs (auto) 2.20 Nucleated RBC % 0 Sodium 143 Potassium 2.1 L* Chloride 109 H Carbon Dioxide 26.0 Anion Gap 8 BUN 13 Creatinine 1.08 Estim Creat Clear Calc 112.33 Est GFR (MDRD) Af Amer 107 Est GFR (MDRD) Non-Af 89 BUN/Creatinine Ratio 12.0 Glucose 114 H Calcium 9.0 Magnesium 2.0 Total Bilirubin 0.40 AST 21 ALT 31 Alkaline Phosphatase 52 Total Creatine Kinase 318 H Total Protein 7.1 Albumin 4.0 Globulin 3.1 Albumin/Globulin Ratio 1.3 Urine Color Yellow Urine Clarity Clear Urine pH 5.0 Ur Specific Diamond 1.025 Urine Protein 15 H Urine Glucose (UA) Normal Urine Ketones 5 H Urine Occult Blood 10 H Urine Nitrite Negative Urine Bilirubin Negative Urine Urobilinogen Normal Ur Leukocyte Esterase 25 H Urine RBC 0 SEEN Urine WBC 0 SEEN Ur Squamous Epith Cells 0 SEEN Urine Bacteria 0 SEEN Urine Mucus 0 SEEN EKG Normal sinus rhythm: Attestation: I personally reviewed and interpreted this EKG as follows: Interpretation: - (possibly small U waves) Treatment and Re-Evaluation Comments:: Seen and evaluated independently and in conjunction with nurse practitioner. Agree with notes above unless documented otherwise. Last night patient started feeling more weak and stiff like his potassium is getting symptomatically low, worse today. On exam, generalized symmetric weakness all 4 extremities, otherwise benign exam. Normal neurologically. Labs show potassium of 2.1. Patient was given IV potassium, we cut the rate in half because he has a history of having more muscle pain and stiffness with IV potassium. He tolerated this well for about an hour but then started getting symptomatic and asked that we hold it which we did. He wants to do oral potassium which we can start, I advised him that that is something he can do at home, however he is too weak to walk, so plan is for admission. Discharge Plan Dx/Rx/DC Orders Clinical Impression: Hypokalemic periodic paralysis, Acute hypokalemia Disposition Disposition: Acute Care [facility] What to do if you have Problems For any increased pain, shortness of breath, bleeding, nausea or vomiting, chestpain, or any unexpected problems, contact your Primary Care Provider. Call [facility] ([phone]) or report to the closest Emergency Room. Call 911 if necessary. 09/02/222053 <Electronically signed by Dionte CARNEY> Cosigner Signature (if applicable): 09/02/222135 <Electronically signed by Carlyle Herrera MD> CC: ROMMEL Ge ~ Signed [facility] Work Phone: [phone] 520-417605-05-[address] Herrera [facility] September 02, 2022 9:36pm Note Date/Time September 02, 2022 4:50pm [facility] Medical Records Department [address] [place] [address] Emergency Department Summary 09/02/22 MR#: [id number] Acct: [id number] Name: DARIUSZ MONAHAN Rep #:[id number] : 1995 26 From: Dionte CARNEY PCP: ROMMEL Starks Sta tus:REG ER Location: ED HPI <ROMMEL Rodriguez - Last Filed: 09/02/22 20:54> History of Present Illness Chief Complaint: Abn Labs Narrative Narrative: Patient is a 26-year-old male with history of hypokalemia that is so severe thathe has difficulty moving his body. Patient has had this for several years. He does have a PCP. Patient states that he took 60 mill equivalents of potassium today, he does have a prescription for this which is liquid. Patient states forthe last 24 hours has been feeling more weak, more weakness while walking and heis concerned that this is happening again. Patient denies any chest pain. Patient states he was sick last week however he is getting over this. He deniesany chest pain, shortness of breath. He denies any headache. [facility], [facility] <ROMMEL Rodriguez - Last Filed: 09/02/22 20:54> [facility] Medical History (Updated 09/02/22 @ 21:[address] Monica Oswald MD) Hypokalemic periodic paralysis Home Medications potassium chloride 20 mEq tablet,extended release(part/cryst) 2 tab PO BID #20 tabs 06/18/18 [Rx Last Taken Unknown] Allergy/AdvReac Type Severity Reaction Status Date / Time Sulfa (Sulfonamide Allergy Shortness Verified 09/02/22 16:31 Antibiotics) of breath Surgical History (Updated 09/02/22 @ 16:31 by Viviane Guerrero) History of adenoidectomy Social History Smoking Status: Never smoker ROS <ROMMEL Rodriguez - Last Filed: 09/02/22 20:54> ROS ED ROS Narrative Constitutional: Negative for fever, chills, weight loss. Positive for weakness Eyes: Negative for vision loss, vision change, double vision ENT: Negative for any sore throat, ear pain, congestion Cardiovascular: Negative for any chest pain, tightness, palpitations Respiratory: Negative for any cough, sputum production, hemoptysis, dyspnea, dyspnea on exertion, orthopnea Gastrointestinal: Negative for any abdominal pain, nausea, vomiting, diarrhea, constipation, blood in stool, blood in vomit : Negative for any urinary frequency, dysuria, retention, blood in urine Muscle skeletal: Negative for any muscle joint pain, stiffness, arthralgias, neck pain, back pain. Positive for myalgias, feeling of muscle weakness Neurological: Negative for any headache, syncope, numbness or tingling, dizziness Skin: Negative for any rashes, lumps, itching, abrasions, lacerations Psychiatric: Negative for any depression, anxiety, stress, suicidal ideation, homicidal ideation Hematologic: Negative for any easy bruising, excessive bruising, easy bleeding Allergies: Negative for any eczema, hives, rash EXAM <ROMMEL Rodriguez - Last Filed: 09/02/22 20:54> Physical Exam Narrative Exam Narrative: Vital signs reviewed. HEET: Head normocephalic atraumatic, TMs clear bilaterally. Posterior pharynx is clear, moist mucous membranes. Nares clear bilaterally. Neck: Supple with no lymphadenopathy or tenderness. No signs of meningismus, negative jolt sign. Cardiac: Regular rate and rhythm no murmurs gallops or rubs, equal peripheral pulses bilaterally. Respiratory: Lungs clear to auscultation bilaterally. No chest tenderness. Abdomen: Soft, nontender, nondistended. No abdominal bruit or pulsatile masses. No hepatosplenomegaly Extremities: No peripheral edema, no signs of gross trauma or deformity. Activefull range of motion of all extremities. Patient appears to be moving all extremities. Neuro: Cranial nerves II through XII intact, no focal neurological deficits. Negative Chvostek Sign, equal patellar reflexes Skin: Clean dry and intact with no rash, purpura, petechiae, vesicles or pustules. Backs/flank: No CVA tenderness, no midline spinal tenderness, no deformity. Psych: Normal mood and affect. No SI, HI or acute psychosis. Const Vital Signs: 09/02/22 15:44 09/02/22 16:32 09/02/22 16:32 Temperature 96.5 F L Temperature Source Temporal Pulse Rate 98 92 Respiratory Rate 18 18 Respiratory Effort Normal Non-Labored Respiratory Pattern Normal Blood Pressure 177/105 H 144/68 H Blood Pressure Mean 129 93 Pulse Ox 100 98 Oxygen Delivery Method Room Air Room Air 09/02/22 18:18 09/02/22 20:09 Temperature Temperature Source Pulse Rate 92 107 H Respiratory Rate 17 16 Respiratory Effort Respiratory Pattern Blood Pressure 136/105 H 149/96 H Blood Pressure Mean 115 113 Pulse Ox 98 96 Oxygen Delivery Method Room Air Room Air Positive well nourished and well developed General Appearance ED: well developed <Dr. Carlyle Herrera MD - Last Filed: 09/02/22 21:36> Physical Exam Const Vital Signs: 09/02/22 15:44 09/02/22 16:32 09/02/22 16:32 Temperature 96.5 F L Temperature Source Temporal Pulse Rate 98 92 Respiratory Rate 18 18 Respiratory Effort Normal Non-Labored Respiratory Pattern Normal Blood Pressure 177/105 H 144/68 H Blood Pressure Mean 129 93 Pulse Ox 100 98 Oxygen Delivery Method Room Air Room Air 09/02/22 18:18 09/02/22 20:09 Temperature Temperature Source Pulse Rate 92 107 H Respiratory Rate 17 16 Respiratory Effort Respiratory Pattern Blood Pressure 136/105 H 149/96 H Blood Pressure Mean 115 113 Pulse Ox 98 96 Oxygen Delivery Method Room Air Room Air [facility] <Dionte RamírezROMMEL - Last Filed: 09/02/22 20:54> [facility] Lab Data Labs: Laboratory Results - last 24 hr 09/02/22 09/02/22 09/02/22 16:48 16:48 17:19 WBC 11.1 H RBC 5.42 Hgb 15.9 Hct 45.6 MCV 84.1 MCH 29.3 MCHC 34.9 RDW Std Deviation 34.7 L RDW Coeff of Darian 11.6 Plt Count 301 MPV 9.7 Immature Gran % (Auto) 0.400 Neut % (Auto) 72.1 H Lymph % (Auto) 19.7 Furnas % (Auto) 6.3 Eos % (Auto) 1.1 Baso % (Auto) 0.4 Absolute Neuts (auto) 8.0 H Absolute Lymphs (auto) 2.20 Nucleated RBC % 0 Sodium 143 Potassium 2.1 L* Chloride 109 H Carbon Dioxide 26.0 Anion Gap 8 BUN 13 Creatinine 1.08 Estim Creat Clear Calc 112.33 Est GFR (MDRD) Af Amer 107 Est GFR (MDRD) Non-Af 89 BUN/Creatinine Ratio 12.0 Glucose 114 H Calcium 9.0 Magnesium 2.0 Total Bilirubin 0.40 AST 21 ALT 31 Alkaline Phosphatase 52 Total Creatine Kinase 318 H Total Protein 7.1 Albumin 4.0 Globulin 3.1 Albumin/Globulin Ratio 1.3 Urine Color Yellow Urine Clarity Clear Urine pH 5.0 Ur Specific Diamond 1.025 Urine Protein 15 H Urine Glucose (UA) Normal Urine Ketones 5 H Urine Occult Blood 10 H Urine Nitrite Negative Urine Bilirubin Negative Urine Urobilinogen Normal Ur Leukocyte Esterase 25 H Urine RBC 0 SEEN Urine WBC 0 SEEN Ur Squamous Epith Cells 0 SEEN Urine Bacteria 0 SEEN Urine Mucus 0 SEEN EKG Normal sinus rhythm: Attestation: I personally reviewed and interpreted this EKG as follows: Comments: Normal sinus rhythm with sinus arrhythmia, rate of 87 bpm, OR 156 ms, QRS duration 90 ms, no acute ST elevation, no acute infarct noted. Treatment and Re-Evaluation :: Patient presents to the emergency department with complaints of low potassium, muscle weakness. He does have a long history of this. Patient was seen here [id number] when his potassium was 2.7, he received 20 mill equivalents of IV potassiumfelt better and was discharged. Patient appears generally well, vital signs arestable. Patient's EKG was unremarkable. Patient's laboratory values showed a critical low potassium of 2.1, magnesium was unremarkable, remainder the chemistries were unremarkable. Patient CBC shows a leukocytosis white blood count 11.1. At this time, the patient will receive 40 mill equivalents of IV potassium. The patient mentions that he does not want IV potassium because it makes him paralyzed he would rather have oral liquid potassium. We did have a long conversation, the patient is still unsure if he wants to be admitted. The patient will receive IV potassium and half the rate, this will be over 8 hours. Time was roughly 2044, the patient is tolerating IV potassium well. The patienthas been receiving IV potassium for 2 hours. It is running at half the normal rate secondary to the patient being concerned that the IV form of potassium willcause him to have paralysis. <Dr. Carlyle Herrera MD - Last Filed: 09/02/22 21:36> [facility] Lab Data Attestation: I reviewed the patient's lab results. Labs: Laboratory Results - last 24 hr 09/02/22 09/02/22 09/02/22 16:48 16:48 17:19 WBC 11.1 H RBC 5.42 Hgb 15.9 Hct 45.6 MCV 84.1 MCH 29.3 MCHC 34.9 RDW Std Deviation 34.7 L RDW Coeff of Darian 11.6 Plt Count 301 MPV 9.7 Immature Gran % (Auto) 0.400 Neut % (Auto) 72.1 H Lymph % (Auto) 19.7 Furnas % (Auto) 6.3 Eos % (Auto) 1.1 Baso % (Auto) 0.4 Absolute Neuts (auto) 8.0 H Absolute Lymphs (auto) 2.20 Nucleated RBC % 0 Sodium 143 Potassium 2.1 L* Chloride 109 H Carbon Dioxide 26.0 Anion Gap 8 BUN 13 Creatinine 1.08 Estim Creat Clear Calc 112.33 Est GFR (MDRD) Af Amer 107 Est GFR (MDRD) Non-Af 89 BUN/Creatinine Ratio 12.0 Glucose 114 H Calcium 9.0 Magnesium 2.0 Total Bilirubin 0.40 AST 21 ALT 31 Alkaline Phosphatase 52 Total Creatine Kinase 318 H Total Protein 7.1 Albumin 4.0 Globulin 3.1 Albumin/Globulin Ratio 1.3 Urine Color Yellow Urine Clarity Clear Urine pH 5.0 Ur Specific Diamond 1.025 Urine Protein 15 H Urine Glucose (UA) Normal Urine Ketones 5 H Urine Occult Blood 10 H Urine Nitrite Negative Urine Bilirubin Negative Urine Urobilinogen Normal Ur Leukocyte Esterase 25 H Urine RBC 0 SEEN Urine WBC 0 SEEN Ur Squamous Epith Cells 0 SEEN Urine Bacteria 0 SEEN Urine Mucus 0 SEEN EKG Normal sinus rhythm: Attestation: I personally reviewed and interpreted this EKG as follows: Interpretation: - (possibly small U waves) Treatment and Re-Evaluation Comments:: Seen and evaluated independently and in conjunction with nurse practitioner. Agree with notes above unless documented otherwise. Last night patient started feeling more weak and stiff like his potassium is getting symptomatically low, worse today. On exam, generalized symmetric weakness all 4 extremities, otherwise benign exam. Normal neurologically. Labs show potassium of 2.1. Patient was given IV potassium, we cut the rate in half because he has a history of having more muscle pain and stiffness with IV potassium. He tolerated this well for about an hour but then started getting symptomatic and asked that we hold it which we did. He wants to do oral potassium which we can start, I advised him that that is something he can do at home, however he is too weak to walk, so plan is for admission. Discharge Plan Dx/Rx/DC Orders Clinical Impression: Hypokalemic periodic paralysis, Acute hypokalemia Disposition Disposition: Acute Care Hospital [facility] What to do if you have Problems For any increased pain, shortness of breath, bleeding, nausea or vomiting, chestpain, or any unexpected problems, contact your Primary Care Provider. Call [facility] ([phone]) or report to the closest Emergency Room. Call 911 if necessary. 09/02/222053 <Electronically signed by Dionte CARNEY> Cosigner Signature (if applicable): 09/02/222135 <Electronically signed by Carlyle Herrera MD> CC: MACHINE DESIGNER-C Aaron Ge ~ Signed [facility] Work Phone: [phone] 490-404307-28-2021 Emergency department Note* Zhanna Boyle RN - 11/25/2020 3:05 PM EDT Pt given discharge instructions he voiced understanding * Lico Sarah DO - 11/25/2020 2:15 PM EDT I personally saw and examined this patient. I supervised the care and treatment of this patient. I formulated the medical decision making plan verbally with the midlevel, MACHINE DESIGNER, or PA, that led to the disposition, treatment, discharge, or admission of this patient. The orders entered are part of the direct result of that medical decision making and treatment plan formulated and discussed. Patient's medications, allergies, past medical, surgical, social and family histories were reviewedand updated as appropriate. Pt with no distress or anxiety while in the room after the ativan. Continue prozac by pcp. Physical Exam Constitutional: Oriented to person, place, and time. Appears well-developed and well-nourished. Head: Normocephalic and atraumatic. Eyes: EOM are normal. Pupils are equal, round, and reactive to light. Neck: Normal range of motion. Neck supple. Pulmonary/Chest: No respiratory distress. Musculoskeletal: Normal range of motion. Neurological: Alert and oriented to person, place, and time. Skin: Skin is warm and dry. No rash noted. Psychiatric: Normal mood and affect. Lico Sarah DO 11/25/20 1415 * Jeni Camacho RN - 11/25/2020 1:29 PM EDT Pt appears much calmer in bed and patient and mother voicing the same. VSS at this time. No furtherneeds voiced at this time. * Jeni Camacho RN - 11/25/2020 12:31 PM EDT This nurse assisted patient to room, pt from triage is very anxious and when standing up the patient was hyperventilating and stating he was going to pass out Pt assisted to wheelchair and brought to room. Pt very anxious in bed and stated multiple times that is was going to pass out while in bed. This nurse and other nurse present reassured patient that he was in the bed and if he did pass out that he would be ok. VSS. Pt and mother stating that he has not taken his anxiety medication today due to concerns of the patient having more anxiety from the medication. Pt's mother voiced concerns of the patient being in respiratory alkalosis due to the patient's prolonged hyperventilating. Jeyson MACHINE DESIGNER notified of patient's anxiety and concerns. * Nadia Xiong RN - 11/25/2020 10:30 AM EDT Pt reports being seen multiple times over the past couple of weeks for anxiety. Pt states that he was started on Buspar and Zoloft. Pt reports feeling tired. States that when he has his panic attackshe feels SOB. Pt states that he had EKG changes in the past. States that his potassium was 3. Denies chest pain at this time. States that he was scheduled to have Holter monitor placed but he was havi ng an anxiety attack and did not go to the appointment. Pt a/ox3, skin w/d/p, resp easy, no distress, steady gait to [facility] No Information to Report [facility] Discharge summary No Information to Report [facility] Discharge summary Author Dr. Ramos [facility] September 03, 2022 1:21pm Note Date/Time September 03, 2022 1:21pm [facility] Medical Records Department [address] [place] [place] [address] Discharge Summary 09/03/22 1317 MR#: [id number] Acct: [id number] Name: DARIUSZ MONAHAN Rep #:[id number] : 1995 26 From: Tri Ramos MD PCP: ROMMEL Starks tus:ADM PRITI Location: [place] [address] Providers Date of Admission: 09/02/22 Date of Discharge: 09/03/22 Primary Care Physician: ROMMEL Starks Reason For Visit: HYPOKALEMIA Diagnosis Discharge Diagnosis (1) Acute hypokalemia: Status: Acute Code(s): E87.6 - Hypokalemia Medications at Discharge Home Medications potassium chloride 40 mEq/15 mL oral liquid 40 meq (15 mL) PO DAILY #473 mL 09/03/22 Hospital Course Operations None Procedures None Summary of Care Provided Minutes Spent on Discharge: 45 Hospital Course: Patient is a 26-year-old male with a past medical history as outlined which includes hereditary hypokalemic. Of paralysis with records noting noncompliancewith his potassium supplementation. He was admitted through the ED on 09/02/2022 with a complaint of feeling weak which was worsened with activity. He had givenhimself 60 mEq of potassium on the day of presentation but said his symptoms didnot improve. He had had a recent upper respiratory illness as well. On admission his magnesium was 2 and potassium was 2.1. Urinalysis showed no evidence of UTI and total CPK was 318. EKG showed no acute ST changes. 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 His potassium was aggressively supplemented both orally and IV. Potassium came up to 4.8 at time of discharge. He was discharged with p.o. potassium chloride 40 mEq daily in liquid form as this was his preference. He is follow-up with his primary care doctor and counseled to be compliant with hispotassium supplementation. Patient seen and examined prior to discharge. He had no complaints and had an uneventful night. Review of systems otherwise negative. Labs and vitals reviewed. Home medication reviewed and reconciled. Physical Exam Const alert, oriented x3 and no apparent distress General Appearance: cooperative, comfortable and well developed Orientation / Consciousness: awake Exam Limitations: no limitations HEENT normocephalic, head/scalp atraumatic and moist oral mucous membranes Mouth: oral and palatal mucosa normal Eyes PERRL, EOMs intact bilaterally and conjunctivae normal Neck no lymphadenopathy and supple Resp normal respiratory effort, no retractions, no use of accessory muscles and clearto auscultation bilaterally Cardio regular rate, regular rhythm, S1 normal heart sound, S2 normal heart sound and no murmurs GI normal to inspection, nondistended, normoactive bowel sounds, soft to palpation,non-tender and non-distended Extremity normal to inspection, full ROM and no clubbing, cyanosis or edema Skin no rashes or lesions noted, no wounds and skin turgor normal Neuro oriented x3, CN's II-XII intact bilaterally, moves all extremities and no focal motor deficits Sensorium / Orientation: awake and alert Speech: speech normal Motor Exam: strength 5/5 throughout Psych affect normal Weight / BMI Weight Weight: 264 lb 1.82 oz Body Mass Index (BMI) 36.8 ABG / Lab / Microbiology Data Result Diagrams: 09/03/22 07:11 09/03/22 12:08 Laboratory: Laboratory Results - last 24 hr 09/02/22 16:48: WBC 11.1 H, RBC 5.42, Hgb 15.9, Hct 45.6, MCV 84.1, MCH 29.3, MCHC 34.9, RDW Std Deviation 34.7 L, RDW Coeff of Darian 11.6, Plt Count 301, MPV 9.7, Immature Gran % (Auto) 0.400, Neut % (Auto) 72.1 H, Lymph % (Auto) 19.7, Furnas % (Auto) 6.3, Eos % (Auto) 1.1, Baso % (Auto) 0.4, Absolute Neuts (auto) 8.0 H, Absolute Lymphs (auto) 2.20, Nucleated RBC % 0 09/02/22 16:48: Sodium 143, Potassium 2.1 L*, Chloride 109 H, Carbon Dioxide 26.0, Anion Gap 8, BUN 13, Creatinine 1.08, Estim Creat Clear Calc 112.33, Est GFR (MDRD) Af Amer 107, Est GFR (MDRD) Non-Af 89, BUN/Creatinine Ratio 12.0, Glucose 114 H, Calcium 9.0, Magnesium 2.0, Total Bilirubin 0.40, AST 21, ALT 31,Alkaline Phosphatase 52, Total Creatine Kinase 318 H, Total Protein 7.1, Albumin4.0, Globulin 3.1, Albumin/Globulin Ratio 1.3 09/02/22 17:19: Urine Color Yellow, Urine Clarity Clear, Urine pH 5.0, Ur Specific Diamond 1.025, Urine Protein 15 H, Urine Glucose (UA) Normal, Urine Ketones 5 H, Urine Occult Blood 10 H, Urine Nitrite Negative, Urine Bilirubin Negative, Urine Urobilinogen Normal, Ur Leukocyte Esterase 25 H, Urine RBC 0 SEEN, Urine WBC 0 SEEN, Ur Squamous Epith Cells 0 SEEN, Urine Bacteria 0 SEEN, Urine Mucus 0 SEEN 09/02/22 22:52: Sodium 143, Potassium 2.2 L*, Chloride 110 H, Carbon Dioxide 23.0, Anion Gap 10, BUN 14, Creatinine 1.16, Estim Creat Clear Calc 104.58, Est GFR (MDRD) Af Amer 99, Est GFR (MDRD) Non-Af 82, BUN/Creatinine Ratio 12.1, Glucose 106, Calcium 8.3 L 09/03/22 07:11: WBC 9.7, RBC 4.71, Hgb 14.0, Hct 39.7 L, MCV 84.3, MCH 29.7, MCHC 35.3, RDW Std Deviation 35.7, RDW Coeff of Darian 11.7, Plt Count 261, MPV 9.8, Immature Gran % (Auto) 0.400, Neut % (Auto) 67.9, Lymph % (Auto) 22.8, Furnas% (Auto) 6.4, Eos % (Auto) 2.3, Baso % (Auto) 0.2, Absolute Neuts (auto) 6.6, Absolute Lymphs (auto) 2.20, Nucleated RBC % 0 09/03/22 07:11: Sodium 143, Potassium 2.5 L*, Chloride 112 H, Carbon Dioxide 23.0, Anion Gap 8, BUN 12, Creatinine 1.00, Estim Creat Clear Calc 121.32, Est GFR (MDRD) Af Amer 117, Est GFR (MDRD) Non-Af 97, BUN/Creatinine Ratio 12.0, Glucose 103, Calcium 7.9 L, Total Bilirubin 0.80, AST 24, ALT 21, Alkaline Phosphatase 44 L, Total Protein 6.1 L, Albumin 3.2, Globulin 2.9, Albumin/Globulin Ratio 1.1 09/03/22 12:08: Sodium 141, Potassium 4.8, Chloride 111 H, Carbon Dioxide 26.0, Anion Gap 4 L, BUN 10, Creatinine 0.94, Estim Creat Clear Calc 129.06, Est GFR (MDRD) Af Amer 125, Est GFR (MDRD) Non-Af 103, BUN/Creatinine Ratio 10.6, Glucose 107 H, Calcium 8.2 L D/C Instructions Discharge Diet: No restrictions and - (high potassium diet) Call your doctor if you observe: Fever of 101 or Higher, Shortness of breath, Dizziness, Swelling in the ankles, Chest pain and Increased palpitations (irregular heartbeat) Meaningful Use Info Meaningful Use Diagnoses (Choose all that apply): None applicable Discharge Plan Admission Admit Date/Time: 09/02/22 21:34 Primary Reason for Your Visit: hypokalemia Attending Provider: Tri Ramos Primary Care Provider: Aaron Ge NP Consulting Providers: Monica Oswald Instructions Patient Instructions: Hypokalemia Dc, High Potassium Diet Dc, ED Potassium- RichFoods Discharge Orders/Prescriptions Prescriptions: New potassium chloride 40 mEq/15 mL liquid 40 meq PO DAILY Qty: 473 2RF Discontinued potassium chloride 20 mEq/15 mL liquid 20 meq PO BID PRN (Reason: Hypokalemia) Label Comments: take 15 milliliters by mouth twice a day with food Referrals / Follow Up: Aaron Ge MACHINE DESIGNER, MACHINE DESIGNER-C [Primary Care Provider] - Within 1 Week Disposition Disposition (needs filled in before D/C Order can be placed): Home, Self Care Charges/Coding Visit Charges Inpatient E&M: 64886 Disch Hosp >30min 09/03/22 1321 <Electronically signed by Tri Ramos MD> Cosigner Signature (if applicable): CC: MACHINE DESIGNER-C Aaron Ge; Dr. Tri Ramos MD~ Signed [facility] Work Phone: Evaluation + Plan note No data available for this section [facility] Evaluation note* Diagnosis Anxiety- Primary Anxiety state, unspecified documented [facility] encounter [facility] noteNo assessment information available [facility] Work Phone: Evaluation note No Information to Report [facility] Evaluation note* Diagnosis Onset Date Resolution Status Acute hypokalemia acute [facility] Work Phone: Evaluation note* Diagnosis Dental infection- Primary Acute apical periodontitis of pulpal origin [facility] No Information to Report [facility] Hospital Discharge instructions* Attachments The following attachments cannot be sent through Care Everywhere. * Anxiety Disorder (North [place] Indonesian) [facility] Discharge instructions No data available for this section [facility] Procedure note No Information to Report [facility] Progress note No Information to Report [facility] Proghzwm note No data available for this section [facility] Reason for Referral Status Reason Specialty Diagnoses / Procedures Referre d By Contact Referred To Contact [facility] Diagnoses Anxiety Lico Sarah DO [address] [place] [phone] [address] Advance Directives No Advanced Directives Records FoundDocuments on File Type Date Recorded 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 Advance Directives and Living Will Power of Plow And Boring Machine Tender Advance Directive Response Recorded Date/ Time Living Will No September 02, 2022 4: 32pm Power of Plow And Boring Machine Tender No September 02, 2022 4:32pm Advance Directive Response Recorded Date/ Time Living Will No September 02, 2022 10 :18pm Power of Plow And Boring Machine Tender No September 02, 2022 10:18pm Summary Purpose Family History No Family History Records Found Relationship Condition Age at Onset Recorded Date/T mehnaz father Hypokalemic periodic paralysis Unknown Hypertension Unknown brother Hypokalemic periodic paralysis Unknown mother Hypertension Unknown Relationship Condition Age at Onset Recorded Date/T mehnaz father Hypokalemic periodic paralysis Unknown Hypertension Unknown brother Hypokalemic periodic paralysis Unknown mother Hypothyroidism Unknown Chief Complaint and Reason for Visit Chief Complaint HYPOKALEMIA Reason for Visit Acute hypokalemia Chief Complaint HYPOKALEMIA HYPOKALEMIA HYPOKALEMIA Reason for Visit Acute hypokalemia Additional Source Comments Reason for Visit (unrecogniz ed section and content) Reason Comments Anxiety Reason Comments Dental Problem Bottom LEFT tooth Scheduled Active and Recently Administ ered Medications (unrecognized section and content) Medication Order 11/23/2020 11/24/2020 11/25/2020 LORazepam (ATIVAN) tablet 1 mg (COMPLETED) 1 mg, Oral, ONCE, 1 dose, On Mon11/25/20 at 1302, Caution: This medication looks and/or sounds like another medication. 1243 (Given - Provid er: Jeni Camacho RN) Goals (unrecognized section and content) Goals may be documented in a n alternate section No Information to Report No Information to Report No Information to ReportGoals may be documented in an alternate section No data available for this section (unrecognized sect ion and content) No Status Records FoundNo Status Records FoundNo Status Records FoundNo Status Records FoundNo Status Records Found INFORMATION SOURCE (unrecogn ized section and content) DATE CREATED AUTHOR 03/03/2022 [facility] DATE CREATED AUTHOR AUTHOR'S ORGANIZ ATION 09/06/2022 [facility] DATE CREATED AUTHOR AUTHOR'S ORGANIZ ATION 08/31/2023 [facility] DATE CREATED AUTHOR AUTHOR'S ORGANIZ ATION 04/28/2024 [facility] DATE CREATED AUTHOR AUTHOR'S ORGANIZ ATION 09/10/2024 [facility] Care Teams (unrecognized sec tion and content) Team Status: Active Member Role Status Dates Aaron Ge MACHINE DESIGNER, MACHINE DESIGNER-C Family Provider Activ e Aaron Ge MACHINE DESIGNER, MACHINE DESIGNER-C Primary Care Provider Active Team Status: Active Member Role Status Dates Aaron Ge MACHINE DESIGNER, MACHINE DESIGNER-C Primary Care Provider Active Dr. Carlyle Herrera MD Emergency Provider Active Dr. Monica Oswald MD Admit Provider, Attending Prov ider Active Team Status: Active Member Role Status Dates Aaron Ge MACHINE DESIGNER, MACHINE DESIGNER-C Primary Care Provider Active Dr. Carlyle Herrera MD Emergency Provider Active Dr. Monica Oswald MD Admit Provider, Attending Provider, Other Provider Active Team Status: Active Member Role Status Dates Aaron Ge MACHINE DESIGNER, MACHINE DESIGNER-C Primary Care Provider Active Dr. Carlyle Herrera MD Emergency Provider Active Dr. Monica Oswald MD Admit Provider, Other Provider Active Dr. Tri Ramos MD Attending Provider, Other Prov ider Active Team Status: Inactive Member Role Status Dates Aaron Wilson Joo MACHINE DESIGNER, MACHINE DESIGNER-C Primary Care Provider Active Dr. Carlyle Herrera MD Emergency Provider Active Dr. Monica Oswald MD Admit Provider, Other Provider Active Dr. Tri Ramos MD Attending Provider Active [employer] Relationship Specialty Start Date End Date Carlo Horowitz MD [address] [place] [address] PCP - General Pediatrics 03/31/10 Source Comments (unrecognize d section and content) In the event this informatio n is protected by the Federal Confidentiality of Alcohol and Drug Abuse Patient Records regulations: The Federal rules restrict any use of the information to criminally investigate or prosecute any alcohol or drug abuse patient.[facility] FOR RECORDS PERTAINING TO PATIENTS WHO ARE OR HAVE BEEN ENROLLED IN A CHEMICAL DEPENDENCY/SUBSTANCEABUSE PROGRAM, SOME INFORMATION MAY BE OMITTED. This clinical summary was aggregated from multiple sources. Caution should be exercised in using it in the provision of clinical care. This summary normalizes information from multiple sources, and as a consequence, information in this document may materially change the coding, format and clinical context of patient data. In addition, data may be omitted in some cases. CLINICAL DECISIONS SHOULD BE BASED ON THE PRIMARY CLINICAL RECORDS. [email or web address] provides no warranty or guarantee of the accuracy or completeness of information in this document.
[2024-12-18] MEDS: Gentamicin Sulfate 1 OPTH.BTL 2 DRP RIGHT EYE (20:48)
[2024-12-18 20:54] VITALS: BP 137/65; PULSE 95; RESP 15; TEMP 37.1; O2SAT 99
== END 2024-12-18 20:55 | disposition home or self-care (01) ==
PROVIDERS: Emergency Provider Emergency Medicine; PCP Nurse Practitioner Family; Visit Provider Emergency Medicine
DX: T15.01XA Foreign body in cornea, right eye, initial encounter (principal); W44.9XXA Unspecified foreign body entering into or through a natural orifice, initial encounter
CPT/HCPCS: 99283